=== PATIENT | female | born 1940 | race Caucasian/White ===

== ENCOUNTER → 2016-08-28 | Outpatient (CLI) | payer OTHER, BC ==
[~2016-08-28] MED LIST: B-COTAB18 PO; BNC/20125 PO; CALC600T37 PO; CHOL1CAP57 PO; CZR50 PO; DILT180C48 PO; DXM/4 PO; HYDR-5688 PO; HYDR25TA5 PO; HYZ/50125 PO; LEVO-14 PO; LEVO100T7 PO; LEVO112T4 PO; MRP5 PO; MULT-845 PO; NLV/20 PO; ONDA-63 PO; POTA-65 PO; PROC1TAB5 PO; PRVC/20 PO; THY/30 PO; THY/60 PO
--- NOTE | 2016-08-28 12:52 | DIAGNOSTIC IMAGING REPORT ---
RIGHT FINGER(S) MIN 2 VIEWS ROUTINE CLINICAL HISTORY: RIGHT INDEX FINGER Right trauma. Pain. COMPARISON: None. DISCUSSION: Transverse hairline fracture base proximal phalanx index finger. Considerable degenerative change of the interphalangeal joints. Significant soft tissue edema IMPRESSION: 1. Transverse nondisplaced hairline fracture base proximal phalanx right second finger.. 2. Degenerative change of all remaining joints. 3. Soft tissue edematous change Electronically signed by: Sixto Fonseca M.D. 08/28/2016 12:50 PM
--- NOTE | 2016-08-28 12:54 | DIAGNOSTIC IMAGING REPORT ---
RIGHT HAND MIN 3 VIEWS ROUTINE CLINICAL HISTORY: RIGHT HAND Right trauma. Pain. COMPARISON: None. DISCUSSION: Transverse nondisplaced cortical fracture base proximal phalanx right second finger. Soft tissue edema. Considerable degenerative change of all remaining visualized osseous structures. The 10th IMPRESSION: 1. Transverse nondisplaced fracture proximal phalanx second finger. Soft tissue edema. 2. Generalized degenerative change. Electronically signed by: Sixto Fonseca M.D. 08/28/2016 12:53 PM
== END | disposition home or self-care (01) ==
LOC: C.RAD 12:12
PROVIDERS: ATTEND Emergency Medicine
DX: S62.640A Nondisplaced fracture of proximal phalanx of right index finger, initial encounter for closed fracture (principal); X58.XXXA Exposure to other specified factors, initial encounter

== ENCOUNTER → 2016-09-04 | Outpatient (CLI) | payer OTHER, BC ==
--- NOTE | 2016-09-04 13:57 | DIAGNOSTIC IMAGING REPORT ---
RIGHT INDEX FINGER 3 VIEWS CLINICAL HISTORY: Pain. Fracture. COMPARISON: 08/28/2016 DISCUSSION: There is a nondisplaced fracture through the proximal aspect of the proximal phalanx. Alignment remains unchanged. There is narrowing of the second metacarpal phalangeal joint with particular calcifications. There are erosive osteoarthritic changes involving the distal interphalangeal joint. Degenerative changes are also visualized within the distal interphalangeal joint of the third finger. IMPRESSION: 1. No change in nondisplaced fracture involving the proximal phalanx of index finger 2. Moderate arthritic changes Electronically signed by: Roosevelt Greene M.D. 09/04/2016 1:55 PM Dictated Date/Time: 09/04/2016 1:39 PM
== END | disposition home or self-care (01) ==
LOC: C.RDSM 09:48
PROVIDERS: ATTEND Internal Medicine
DX: S62.609A Fracture of unspecified phalanx of unspecified finger, initial encounter for closed fracture (principal); X58.XXXA Exposure to other specified factors, initial encounter

== ENCOUNTER → 2016-09-19 | Outpatient (CLI) | payer OTHER, BC ==
--- NOTE | 2016-09-19 10:41 | DIAGNOSTIC IMAGING REPORT ---
RIGHT INDEX FINGER 3 VIEWS CLINICAL HISTORY: Right index finger fracture COMPARISON: 09/04/2016 DISCUSSION: There are advanced osteoarthritic changes the level the first carpometacarpal joint. There are erosive osteoarthritic changes the level the distal interphalangeal joint index finger. There is a nondisplaced fracture through the proximal aspect of the proximal phalanx. This remains unchanged in alignment. No periostitis or callus formation is yet evident. IMPRESSION: No change in alignment of the nondisplaced fracture involving the proximal phalanx of the index finger. Electronically signed by: Roosevelt Greene M.D. 09/19/2016 10:39 AM Dictated Date/Time: 09/19/2016 10:38 AM
== END | disposition home or self-care (01) ==
LOC: C.RDSM 09:33
PROVIDERS: ATTEND Internal Medicine
DX: S62.609A Fracture of unspecified phalanx of unspecified finger, initial encounter for closed fracture (principal); X58.XXXA Exposure to other specified factors, initial encounter

== ENCOUNTER → 2016-10-17 | Outpatient (CLI) | payer OTHER, BC ==
--- NOTE | 2016-10-17 13:07 | DIAGNOSTIC IMAGING REPORT ---
LEFT WRIST MIN 3 VIEWS ROUTINE CLINICAL HISTORY: Left wrist pain and swelling. COMPARISON: None FINDINGS: There is widening of the scapholunate interval. Chondrocalcinosis is noted. There is narrowing of the radiocarpal joint. There is severe arthritis of the left first carpometacarpal joint as well as moderate arthritis of the left triscaphe joint. There is no fracture or suspicious lesion. No erosion is identified. IMPRESSION: 1. No acute fracture or dislocation of the left wrist. 2. Extensive chondrocalcinosis within the TFCC. 3. Widening of the scapholunate interval which is likely chronic. The findings could reflect an early scapholunate collapse. 4. Severe arthritis of the left first carpometacarpal joint and moderate arthritis of the triscaphe joint. Electronically signed by: Matti Springer M.D. 10/17/2016 1:06 PM Dictated Date/Time: 10/17/2016 1:02 PM
== END | disposition home or self-care (01) ==
LOC: C.RDSM 10:33
PROVIDERS: ATTEND Internal Medicine
DX: M25.532 Pain in left wrist (principal)

== ENCOUNTER → 2016-10-19 | Outpatient (CLI) | payer OTHER, BC ==
[2016-10-19 12:13] LABS: BASO % 0.3 %; BASO ABS # 0.02 K/uL (0-0.2); COMPLETE YES; EOS % 2.6 %; HEMATOCRIT 37.4 % (37-47); IG% 0.2 %; LYMPH % 13.4 %; LYMPH ABS # 0.82 K/uL (1.2-3.4); MEAN CELL VOLUME 87.6 fL (80-100); MEAN CORPUSCULAR HEMOGLOBIN 30.7 pg (25-34); MEAN PLATELET VOLUME 9.7 fL (7.4-10.4); NEUT % 75.5 %; PLATELET COUNT 215 K/uL (130-400); RED BLOOD COUNT 4.27 M/uL (4.2-5.4); WHITE BLOOD COUNT 6.11 K/uL (4.8-10.8)
[2016-10-19 12:22] LABS: C-REACTIVE PROTEIN 2.97 mg/dl (0-0.29)
== END | disposition home or self-care (01) ==
LOC: C.LAB 11:15
PROVIDERS: ATTEND Family Medicine
DX: M25.532 Pain in left wrist (principal)

== ENCOUNTER → 2016-10-23 | Outpatient (CLI) | payer OTHER, BC ==
--- NOTE | 2016-10-23 10:28 | DIAGNOSTIC IMAGING REPORT ---
ULTRASOUND KIDNEYS AND BLADDER CLINICAL HISTORY: Chronic kidney disease. COMPARISON STUDY: No priors. TECHNIQUE: Real-time, grayscale, and color flow sonography of the kidneys and bladder is performed. Images are reviewed in the transverse and longitudinal planes. FINDINGS: Kidneys: The kidneys demonstrate mild cortical atrophy and are normal in echotexture. The right kidney measures 9.8 x 6.1 x 5.2 cm and the left kidney measures 11.2 x 5.3 x 3.9 cm. There is no hydronephrosis. No shadowing renal calculi are identified. There is no sonographic evidence of contour deforming renal mass lesion. No perinephric fluid is identified. Bladder: The bladder is normal in appearance. Bilateral ureteral jets were seen. IMPRESSION: 1. The kidneys demonstrate mild cortical atrophy and are without hydronephrosis. 2. The bladder is normal as visualized. Electronically signed by: Aidan Clarke M.D. 10/23/2016 10:27 AM Dictated Date/Time: 10/23/2016 10:26 AM
== END | disposition home or self-care (01) ==
LOC: C.ULTR 09:29
PROVIDERS: ATTEND Family Medicine
DX: N18.3 Chronic kidney disease, stage 3 (moderate) (principal)

== ENCOUNTER → 2016-10-30 | Outpatient (CLI) | payer OTHER, BC ==
--- NOTE | 2016-10-30 09:40 | DIAGNOSTIC IMAGING REPORT ---
RIGHT SECOND FINGER 3 VIEWS HISTORY: Right second finger fracture. COMPARISON: Right second finger 09/19/2016. FINDINGS: Nondisplaced fracture within the proximal phalanx of the right second finger demonstrates interval healing. This is most completely healed. 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 Mild soft tissue swelling within the index finger. No radiopaque foreign bodies. IMPRESSION: Interval healing of the nondisplaced fracture within the proximal phalanx of the right index finger. Electronically signed by: Cortez Cooper M.D. 10/30/2016 9:39 AM Dictated Date/Time: 10/30/2016 9:37 AM
== END | disposition home or self-care (01) ==
LOC: C.RDSM 09:30
PROVIDERS: ATTEND Internal Medicine
DX: S62.640D Nondisplaced fracture of proximal phalanx of right index finger, subsequent encounter for fracture with routine healing (principal); X58.XXXD Exposure to other specified factors, subsequent encounter

== ENCOUNTER → 2016-11-05 | Outpatient (CLI) | payer OTHER, BC ==
--- NOTE | 2016-11-05 20:00 | DIAGNOSTIC IMAGING REPORT ---
CHEST 2 VIEWS ROUTINE CLINICAL HISTORY: Shortness of breath. Asthma exacerbation. COMPARISON STUDY: Chest radiograph and chest CT July 20, 2014. FINDINGS: Lung volumes are normal. There is no pneumothorax or pleural effusion. There is no consolidation to suggest pneumonia. There is no evidence of pulmonary edema. Left lower neck surgical clips are noted. Cardiomediastinal silhouette is stable. There is no evidence of pulmonary edema. IMPRESSION: No acute cardiopulmonary findings. Electronically signed by: Matti Springer M.D. 11/05/2016 7:58 PM Dictated Date/Time: 11/05/2016 7:57 PM
== END | disposition home or self-care (01) ==
LOC: C.RAD 17:51
PROVIDERS: ATTEND Family Medicine
DX: J45.901 Unspecified asthma with (acute) exacerbation (principal)

== ENCOUNTER → 2016-11-23 | Outpatient (CLI) | payer OTHER, BC ==
[~2016-11-23] VITALS: Ht 157.5 cm; Wt 80.6 kg
[2016-11-23 14:56] VITALS: BP 135/83; PULSE 83; Ht 157.5 cm; Wt 80.6 kg
== END | disposition home or self-care (01) ==
LOC: C.NEUR 13:19
PROVIDERS: ATTEND Physician Assistant
DX: G47.33 Obstructive sleep apnea (adult) (pediatric) (principal)

== ENCOUNTER → 2016-12-25 | Outpatient (CLI) | payer OTHER, BC | END | disposition home or self-care (01) | LOC: C.MAMM 09:38 | PROVIDERS: ATTEND Family Medicine | DX: M81.0 Age-related osteoporosis without current pathological fracture (principal) ==

== ENCOUNTER → 2017-02-04 | Outpatient (CLI) | payer OTHER, BC ==
--- NOTE | 2017-02-06 08:21 | MAMMOGRAPHY REPORT ---
THIS REPORT HAS BEEN AMENDED. BILATERAL DIGITAL SCREENING MAMMOGRAM TOMOSYNTHESIS WITH CAD: 02/04/2017 CLINICAL HISTORY: Asymptomatic. Personal history of breast cancer. TECHNIQUE: Breast tomosynthesis in addition to standard 2D mammography was performed. Current study was also evaluated with a Computer Aided Detection (CAD) system. COMPARISON: No prior exams were available for comparison. BREAST COMPOSITION: There are scattered areas of fibroglandular density in both breasts. FINDINGS: A linear scar marker overlies the upper outer quadrant of the right breast. There is expec cristina underlying architectural distortion and 3 surgical clips at the site of prior lumpectomy. There are mild vascular calcifications and a few benign rim calcifications in the breasts. No suspicious m ass, architectural distortion or cluster of microcalcifications is seen. IMPRESSION: ACR BI-RADS CATEGORY 1: NEGATIVE There is no mammographic evidence of malignancy. Prior outside mammograms are currently being reques cristina and if obtained they will be reviewed, compared to the current exam to assess for any more subtle changes, and an addendum will be made to this report. Otherwise, a 1 year screening mammogram is re commended. The patient will receive written notification of the results. Approximately 10% of breast cancers are not detected with mammography. A negative mammographic report should not delay biopsy if a clinically suggestive mass is present. Perri Araujo M.D. ay/:02/05/2017 16:07:49 [employer]ice: Yaneli HANDLEY(Carol)(Wili), [facility] letter sent: Normal 1/ BI-RADS Code: ACR BI-RADS Category 1: Negative AMENDMENT: 02/06/2017 Perri Araujo M.D. Prior mammograms from [place] dated 02/22/2016, 02/09/2015 and 02/11/2014 became avai lable for review. Specimen radiographs from 02/18/2014 are also available. There has been no significant interval change comparing to the prior outside exams. There are stable postsurgical changes including expected architectural distortion and surgical clips in the lateral r ight breast. Stable vascular calcifications bilaterally. No new suspicious mass, architectural dist ortion or new suspicious microcalcifications are identified. Recommend follow-up in 1 year for next annual screening exam. Amended BI-RADS: ACR BI-RADS Category 2: Benign letter sent: Normal 1/2
== END | disposition home or self-care (01) ==
LOC: C.MAMM 08:57
PROVIDERS: ATTEND Internal Medicine Hematology & Oncology
DX: Z12.31 Encounter for screening mammogram for malignant neoplasm of breast (principal); R79.89 Other specified abnormal findings of blood chemistry

== ENCOUNTER → 2017-02-04 | Outpatient (CLI) | payer OTHER, BC ==
[~2017-02-04] MED LIST changes: +OPTIRAY 320 IV PRN
--- NOTE | 2017-02-04 18:55 | DIAGNOSTIC IMAGING REPORT ---
CT ANGIOGRAPHY OF THE CHEST, PULMONARY EMBOLUS PROTOCOL CLINICAL HISTORY: Positive d-dimer. Leg swelling. Cough. COMPARISON STUDY: Chest CT July 20, 2014 and chest radiograph November 05, 2016. TECHNIQUE: Following IV administration of 85 mL of Optiray-320, helical axial images of the chest were obtained utilizing the pulmonary embolus protocol. Maximal intensity projections and sagittal and coronal reformats were viewed on an independent 3D workstation. IV contrast was administered without complication. CT DOSE: 318.02 mGy.cm FINDINGS: No pulmonary emboli are identified. There is no evidence of thoracic aortic dissection. No enlarged axillary, mediastinal or hilar lymph nodes are present. The heart is mildly enlarged. There is no pericardial effusion. There is no consolidation to suggest pneumonia. Lingular opacity suggests atelectasis. Mild subpleural reticulation within the right middle lobe and right lower lobe is likely related to prior radiation therapy. There are post surgical findings within the right breast. There are no suspicious osseous lesions. Upper abdomen is unremarkable. IMPRESSION: 1. No pulmonary emboli identified. 2. No acute intrathoracic findings. Electronically signed by: Matti Springer M.D. 02/04/2017 6:53 PM Dictated Date/Time: 02/04/2017 6:45 PM
== END | disposition home or self-care (01) ==
LOC: C.CTS 18:20
PROVIDERS: ATTEND Family Medicine
DX: R79.89 Other specified abnormal findings of blood chemistry (principal)

== ENCOUNTER → 2017-02-12 | Outpatient (CLI) | payer OTHER, BC ==
[~2017-02-12] MED LIST changes: -OPTIRAY 320 IV PRN
[2017-02-12 12:47] LABS: BLOOD UREA NITROGEN 14 mg/dl (7-18); BUN/CREATININE RATIO 14.8 (10-20); CALCIUM 8.7 mg/dl (8.5-10.1); CARBON DIOXIDE 29 mmol/L (21-32); CHLORIDE 104 mmol/L (98-107); CREATININE 0.97 mg/dl (0.60-1.20); GLUCOSE 91 mg/dl (70-99); POTASSIUM 3.1 mmol/L (3.5-5.1); SODIUM 142 mmol/L (136-145)
[2017-02-12 13:01] LABS: MAGNESIUM 1.8 mg/dl (1.8-2.4)
[2017-02-14 13:41] LABS: THYROGLOBULIN <0.1 NG/ML (2.8-40.9)
== END | disposition home or self-care (01) ==
LOC: C.LABBFT 11:01
PROVIDERS: ATTEND Physician Assistant Medical
DX: I10 Essential (primary) hypertension (principal); M79.89 Other specified soft tissue disorders; I49.3 Ventricular premature depolarization; E83.51 Hypocalcemia; E83.52 Hypercalcemia; E89.0 Postprocedural hypothyroidism; C73 Malignant neoplasm of thyroid gland; R53.83 Other fatigue

== ENCOUNTER → 2017-02-20 | Outpatient (CLI) | payer OTHER, BC ==
[2017-02-20 18:27] LABS: BLOOD UREA NITROGEN 14 mg/dl (7-18); BUN/CREATININE RATIO 12.8 (10-20); CALCIUM 8.9 mg/dl (8.5-10.1); CARBON DIOXIDE 29 mmol/L (21-32); CHLORIDE 102 mmol/L (98-107); GLUCOSE 139 mg/dl (70-99); POTASSIUM 3.1 mmol/L (3.5-5.1); SODIUM 138 mmol/L (136-145)
== END | disposition home or self-care (01) ==
LOC: C.LABBFT 10:38
PROVIDERS: ATTEND Physician Assistant Medical
DX: E87.6 Hypokalemia (principal)

== ENCOUNTER 2017-03-23 14:47 | Emergency (ER) | payer OTHER, BC ==
[~2017-03-23] VITALS: Ht 157.5 cm; Wt 78.9 kg
[~2017-03-23 14:47] MED LIST changes: -B-COTAB18 PO; -CALC600T37 PO; -CZR50 PO; -DILT180C48 PO; -HYDR-5688 PO; -HYDR25TA5 PO; -HYZ/50125 PO; -LEVO-14 PO; -MRP5 PO; -MULT-845 PO; -NLV/20 PO; -POTA-65 PO; -PRVC/20 PO; -THY/30 PO; -THY/60 PO
[2017-03-23 14:49] VITALS: Ht 157.5 cm; Wt 78.9 kg
[2017-03-23] MEDS ORDERED: CZR50 PO (15:22)
[2017-03-23] MEDS ORDERED: THY/60 PO (15:22)
[2017-03-23] MEDS ORDERED: POTA-65 PO (15:22)
[2017-03-23] MEDS ORDERED: NLV/20 PO (15:22)
[2017-03-23] MEDS ORDERED: CALC600T37 PO (15:22)
[2017-03-23] MEDS ORDERED: HYDR25TA5 PO (15:22)
[2017-03-23] MEDS ORDERED: DILT180C48 PO (15:22)
[2017-03-23] MEDS ORDERED: B-COTAB18 PO (15:22)
[2017-03-23 15:23] LABS: BASO % 0.1 %; BASO ABS # 0.01 K/uL (0-0.2); COMPLETE YES; EOS % 0.3 %; HEMATOCRIT 40.3 % (37-47); IG% 0.3 %; LYMPH % 8.3 %; MEAN CELL VOLUME 88.2 fL (80-100); MEAN CORPUSCULAR HEMOGLOBIN 30.2 pg (25-34); MEAN CORPUSCULAR HGB CONC 34.2 g/dl (32-36); MEAN PLATELET VOLUME 9.6 fL (7.4-10.4); MONO % 5.7 %; NEUT % 85.3 %; PLATELET COUNT 196 K/uL (130-400); RED BLOOD COUNT 4.57 M/uL (4.2-5.4); WHITE BLOOD COUNT 10.79 K/uL (4.8-10.8)
[2017-03-23 15:45] LABS: BUN/CREATININE RATIO 11.8 (10-20); POTASSIUM 3.2 mmol/L (3.5-5.1)
--- NOTE | 2017-03-23 17:09 | DIAGNOSTIC IMAGING REPORT ---
ABDOMINAL ULTRASOUND, RIGHT UPPER QUADRANT HISTORY: Right upper quadrant pain. COMPARISON: Renal ultrasound October 23, 2016. FINDINGS: Exam is mildly compromised by suboptimal penetration. The liver is sonographically normal. There is no biliary ductal dilatation. The common bile duct measures 2 mm in caliber. No gallstones are identified. Gallbladder is slightly contracted. There is no gallbladder wall thickening. The pancreas is within normal limits by sonography. There is no right hydronephrosis. IMPRESSION: No significant abnormality identified within the right upper quadrant. Electronically signed by: Matti Springer M.D. 03/23/2017 5:08 PM Dictated Date/Time: 03/23/2017 5:06 PM
--- NOTE | 2017-03-23 17:27 | EMERGENCY ROOM VISIT NOTE ---
ED Visit Note First contact with patient: 14:53 The patient was seen and examined with Morenita Fonseca PA-C. I agree with the history, physical and findings. Please see the note for disposition and details.
[2017-03-23] MEDS ORDERED: OPTIRAY 320 IV PRN (18:15)
--- NOTE | 2017-03-23 18:19 | DIAGNOSTIC IMAGING REPORT ---
CT OF THE ABDOMEN AND PELVIS WITH CONTRAST CLINICAL HISTORY: Right-sided abdominal pain. COMPARISON STUDY: Right upper quadrant ultrasound performed earlier today. TECHNIQUE: Following IV administration of 116 mL of Optiray-320, axial images of the abdomen and pelvis were obtained from the lung bases to the proximal femurs. Images were reviewed in the axial, sagittal, and coronal planes. IV contrast was administered without complication. A dose lowering technique was utilized adhering to the principles of ALARA. CT DOSE: 360.26 mGy.cm FINDINGS: A 5 mm calcified gallstone within the gallbladder was occult by sonography. There is no CT evidence of acute cholecystitis. The liver, spleen, adrenal glands, kidneys and pancreas are unremarkable with the exception of multiple subcentimeter hypodense renal lesions which are too small to characterize. These are probably benign. There is no hydronephrosis. There is no peripancreatic or pericholecystic infiltration. There is no biliary or pancreatic ductal dilatation. There is no evidence for a bowel obstruction. There is extensive sigmoid diverticulosis without evidence for acute diverticulitis. The appendix is not visualized. There is no ascites or lymphadenopathy. No suspicious skeletal lesions are identified. Incidental noted is made of grade I anterolisthesis of L5 on S1 due to bilateral L5 pars defects. IMPRESSION: 1. No acute process within the abdomen or pelvis. 2. 5 mm gallstone within the gallbladder which was occult by sonography. No CT evidence of acute cholecystitis. Electronically signed by: Matti Springer M.D. 03/23/2017 6:17 PM Dictated Date/Time: 03/23/2017 6:10 PM
[2017-03-23] MEDS ORDERED: MULT-845 PO (18:22)
[2017-03-23] MEDS ORDERED: LEVO-14 PO (18:22)
[2017-03-23] MEDS ORDERED: CHOL1CAP57 PO (18:22)
[2017-03-23] MEDS ORDERED: PRVC/20 PO (18:22)
[2017-03-23] MEDS ORDERED: MRP5 PO (18:22)
[2017-03-23] MEDS ORDERED: HYDR-5688 PO (18:44)
[2017-03-23] MEDS ORDERED: NORCO 5/325MG HOME PACK PO ONE (18:45)
--- NOTE | 2017-03-23 18:51 | EMERGENCY ROOM VISIT NOTE ---
History First contact with patient: 14:53 Chief Complaint: ABDOMINAL PAIN Stated Complaint: ABD PAIN History of Present Illness The patient is a 76 year old female who presents to the Emergency Room with complaints of right upper quadrant pain. The patient states that the pain started over 48 hours ago. She states it has been getting progressively worse. The patient denies any nausea, vomiting or change in bowel habits. The patient denies any fever. The patient denies any chest pain or shortness of breath. The patient states that she saw Dr. Chung at [facility] today and he wanted her to get an outpatient ultrasound. The vtc technician would not do the ultrasound that she was nonfasting and therefore the doctor instructed her to come to the emergency room. Review of Systems 10 system review was performed and was negative unless stated otherwise history of present illness. Past Medical/Surgical History Medical Problems: (1) Asthma (2) Breast cancer (3) Hypertension (4) Thyroid cancer Surgical Problems: (1) H/O lumpectomy (2) H/O: hysterectomy (3) History of knee replacement Family History Cancer Diabetes mellitus Heart disease Hypertension Social History Smoking Status: Never Smoker Alcohol Use: occasionally Marital Status: Housing Status: lives with significant other Occupation Status: unemployed Current/Historical Medications Scheduled B-Complex Vitamins (Vitamin B Complex), 1 TABS PO DAILY Calcium (Calcium), 600 MG PO DAILY Cholecalciferol (Vitamin D3), 2,000 INTER.UNIT PO DAILY Diltiazem Hcl (Dilt-Xr), 180 MG PO DAILY Hydrochlorothiazide (Hydrochlorothiazide), 25 MG PO DAILY Levocetirizine Dihydrochloride (Levocetirizine Dihydrochl), 5 MG PO DAILY Losartan Potassium (Losartan Potassium), 50 MG PO DAILY Multiple Vitamins W/ Minerals (Centrum Silver Adult 50+), 1 TAB PO DAILY Potassium Chloride (Potassium Chloride ER), 20 MEQ PO BID Pramipexole Dihydrochloride (Pramipexole Dihydrochlori), 1 MG PO HS Pravastatin Sod (Pravastatin Sodium), 20 MG PO HS Tamoxifen Citrate (Tamoxifen Citrate), 20 MG PO DAILY Thyroid (Thyroid Extract), 60 MG PO DAILY Scheduled PRN Hydrocodone/Acetaminophen 5MG/325MG (Mercer 5MG/325MG), 1-2 TABLET PO Q6 PRN for Pain Physical Exam Vital Signs Date Time Temp Pulse Resp B/P (MAP) Pulse Ox O2 Delivery O2 Flow Rate FiO2 03/23/17 16:09 88 15 148/78 97 Room Air 03/23/17 15:18 90 15 155/80 97 Room Air 03/23/17 14:49 37.4 97 15 163/90 97 Room Air Physical Exam GENERAL: 76-year-old white female appears in no acute distress. MENTAL Status: Alert and oriented 3. MOUTH: Mucosa is moist NECK: Supple, no lymphadenopathy noted. No carotid bruits noted. LUNGS: Clear auscultation without wheezes rales or rhonchi. CARDIAC: Regular rate and rhythm without murmur. Pulses is full and equal throughout. BACK: No CVA tenderness noted. ABDOMEN: Positive bowel sounds all 4 quadrants. Soft, tenderness palpation in the right upper quadrant otherwise nontender to palpation without organomegaly or masses. Positive Barnett sign EXTREMITIES: No cyanosis or edema noted. Medical Decision & Procedures ER Provider Diagnostic Interpretation: CT OF THE ABDOMEN AND PELVIS WITH CONTRAST CLINICAL HISTORY: Right-sided abdominal pain. COMPARISON STUDY: Right upper quadrant ultrasound performed earlier today. TECHNIQUE: Following IV administration of 116 mL of Optiray-320, axial images of the abdomen and pelvis were obtained from the lung bases to the proximal femurs. Images were reviewed in the axial, sagittal, and coronal planes. IV contrast was administered without complication. A dose lowering technique was utilized adhering to the principles of ALARA. CT DOSE: 360.26 mGy.cm FINDINGS: A 5 mm calcified gallstone within the gallbladder was occult by sonography. There is no CT evidence of acute cholecystitis. The liver, spleen, adrenal glands, kidneys and pancreas are unremarkable with the exception of multiple subcentimeter hypodense renal lesions which are too small to characterize. These are probably benign. There is no hydronephrosis. There is no peripancreatic or pericholecystic infiltration. There is no biliary or pancreatic ductal dilatation. There is no evidence for a bowel obstruction. There is extensive sigmoid diverticulosis without evidence for acute diverticulitis. The appendix is not visualized. There is no ascites or lymphadenopathy. No suspicious skeletal lesions are identified. Incidental noted is made of grade I anterolisthesis of L5 on S1 due to bilateral L5 pars defects. IMPRESSION: 1. No acute process within the abdomen or pelvis. 2. 5 mm gallstone within the gallbladder which was occult by sonography. No CT evidence of acute cholecystitis. Electronically signed by: Matti Springer M.D. 03/23/2017 6:17 PM Dictated Date/Time: 03/23/2017 6:10 PM ABDOMINAL ULTRASOUND, RIGHT UPPER QUADRANT HISTORY: Right upper quadrant pain. COMPARISON: Renal ultrasound October 23, 2016. FINDINGS: Exam is mildly compromised by suboptimal penetration. The liver is sonographically normal. There is no biliary ductal dilatation. The common bile duct measures 2 mm in caliber. No gallstones are identified. Gallbladder is slightly contracted. There is no gallbladder wall thickening. The pancreas is within normal limits by sonography. There is no right hydronephrosis. IMPRESSION: No significant abnormality identified within the right upper quadrant. Electronically signed by: Matti Springer M.D. 03/23/2017 5:08 PM Dictated Date/Time: 03/23/2017 5:06 PM Laboratory Results 03/23/17 15:13 Red Blood Count 4.57, Mean Corpuscular Volume 88.2, Mean Corpuscular Hemoglobin 30.2, Mean Corpuscular Hemoglobin Concent 34.2, Mean Platelet Volume 9.6, Neutrophils (%) (Auto) 85.3, Lymphocytes (%) (Auto) 8.3, Monocytes (%) (Auto) 5.7, Eosinophils (%) (Auto) 0.3, Basophils (%) (Auto) 0.1, Neutrophils # (Auto) 9.21, Lymphocytes # (Auto) 0.90, Monocytes # (Auto) 0.61, Eosinophils # (Auto) 0.03, Basophils # (Auto) 0.01 03/23/17 15:13 Test 03/23/17 15:13 White Blood Count 10.79 K/uL (4.8-10.8) Red Blood Count 4.57 M/uL (4.2-5.4) Hemoglobin 13.8 g/dL (12.0-16.0) Hematocrit 40.3 % (37-47) Mean Corpuscular Volume 88.2 fL (80-100) Mean Corpuscular Hemoglobin 30.2 pg (25-34) Mean Corpuscular Hemoglobin Concent 34.2 g/dl (32-36) Platelet Count 196 K/uL (130-400) Mean Platelet Volume 9.6 fL (7.4-10.4) Neutrophils (%) (Auto) 85.3 % Lymphocytes (%) (Auto) 8.3 % Monocytes (%) (Auto) 5.7 % Eosinophils (%) (Auto) 0.3 % Basophils (%) (Auto) 0.1 % Neutrophils # (Auto) 9.21 K/uL (1.4-6.5) Lymphocytes # (Auto) 0.90 K/uL (1.2-3.4) Monocytes # (Auto) 0.61 K/uL (0.11-0.59) Eosinophils # (Auto) 0.03 K/uL (0-0.5) Basophils # (Auto) 0.01 K/uL (0-0.2) RDW Standard Deviation 43.1 fL (36.4-46.3) RDW Coefficient of Variation 13.3 % (11.5-14.5) Immature Granulocyte % (Auto) 0.3 % Immature Granulocyte # (Auto) 0.03 K/uL (0.00-0.02) Anion Gap 5.0 mmol/L (3-11) Est Creatinine Clear Calc Drug Dose 46.6 ml/min Estimated GFR () 63.4 Estimated GFR (Non- 54.7 BUN/Creatinine Ratio 11.8 (10-20) Calcium Level 9.0 mg/dl (8.5-10.1) Total Bilirubin 0.3 mg/dl (0.2-1) Direct Bilirubin 0.1 mg/dl (0-0.2) Aspartate Amino Transf (AST/SGOT) 27 U/L (15-37) Alanine Aminotransferase (ALT/SGPT) 29 U/L (12-78) Alkaline Phosphatase 72 U/L (45-117) Total Protein 7.1 gm/dl (6.4-8.2) Albumin 3.4 gm/dl (3.4-5.0) Lipase 217 U/L (73-393) ED Course The patient was evaluated. The patient's EMR medication list were reviewed. The patient was offered pain medication but declined. IV access was obtained. CBC and differential, renal profile, LFTs and lipase levels were ordered. Labs are reviewed and were unremarkable. White count was normal. LFTs were normal. An ultrasound of the colon was ordered and interpreted by the radiologist as above with evidence of a contracted gallbladder but no evidence of acute cholecystitis or gallstones.. The patient was independently evaluated by active who agreed with treatment plan. A CT of the abdomen and pelvis with IV contrast was ordered and interpreted by the radiologist as above with evidence of a 5 mm gallstone which was not seen on ultrasound. She also has sigmoid diverticulosis without any evidence of diverticulitis. The patient was informed of the CT findings. The patient was given a Mercer home pack. I contacted Dr. Bryant about the patient who will be happy to see the patient in follow-up. She is to call his office on Saturday. The patient was informed treatment plan and was in agreement. The patient was discharged home in stable condition. Medical Decision Differential diagnosis include pleuritic chest pain, acute cholecystitis, cholelithiasis, gastritis, small bowel obstruction Medication Reconcilliation Current Medication List: was personally reviewed by me Blood Pressure Screening Patient's blood pressure: Elevated blood pressure Blood pressure disposition: Elevated BP felt to be situational Impression Primary Impression: Cholelithiasis Departure Information Dispostion Home / Self-Care Condition GOOD Prescriptions Hydrocodone/Acetaminophen 5MG/325MG (Mercer 5MG/325MG) Tab 1-2 TABLET PO Q6 Y for Pain, #14 TAB For Initial Treatment Prov: Melina Fonseca PA-C 03/23/17 Referrals Kell Jorge M.D. (PCP) Forms HOME CARE DOCUMENTATION FORM, IMPORTANT VISIT INFORMATION Patient Instructions Gallstones, [facility] Additional Instructions Follow fat diet. Take Mercer as needed for pain. Do not drive while taking the Mercer. Call Dr. Bryant's office on Saturday. Please call this number. [phone] to make an appointment. If you experience any severe abdominal pain, high fevers, uncontrolled nausea vomiting return to ER immediately. Problem Qualifiers Primary Impression: Cholelithiasis Cholecystitis presence: without cholecystitis Biliary obstruction: without biliary obstruction
[2017-03-23 19:19] VITALS: BP 147/77; PULSE 81; TEMP 37.4; O2SAT 97
[2017-03-29] MEDS ORDERED: THY/30 PO (15:42)
[2017-03-29] MEDS ORDERED: HYDR-5688 PO (15:46)
[2017-03-29] MEDS ORDERED: HYZ/50125 PO (15:47)
== END 2017-03-23 19:20 | disposition home or self-care (01) ==
LOC: C.EDB 14:48 → C.EDC 19:20
DX: K80.20 Calculus of gallbladder without cholecystitis without obstruction (principal); J45.909 Unspecified asthma, uncomplicated; Z85.3 Personal history of malignant neoplasm of breast; I10 Essential (primary) hypertension; Z85.850 Personal history of malignant neoplasm of thyroid; Z80.9 Family history of malignant neoplasm, unspecified; Z83.3 Family history of diabetes mellitus; Z82.49 Family history of ischemic heart disease and other diseases of the circulatory system; Z79.899 Other long term (current) drug therapy

== ENCOUNTER 2017-04-01 10:36 | Day surgery (SDC) | payer OTHER, BC ==
[2017-03-29 15:51] VITALS: Ht 157.5 cm; Wt 77.3 kg
[~2017-04-01] VITALS: Ht 157.5 cm; Wt 77.3 kg
[~2017-04-01 10:36] MED LIST changes: +B-COTAB18 PO; -BNC/20125 PO; +CALC600T37 PO; +CEFAZOLIN 2000 MG/60 ML D5W IV SCH; -DXM/4 PO; +HYDR-5688 PO; +HYDR25TA5 PO; +HYZ/50125 PO; +LACTATED RINGER'S 1000ML 1,000 ML IV SCH; +LEVO-14 PO; -LEVO100T7 PO; -LEVO112T4 PO; +MRP5 PO; +MULT-845 PO; +NLV/20 PO; -ONDA-63 PO; -PROC1TAB5 PO; +PRVC/20 PO; +THY/30 PO
[2017-04-01 11:18] VITALS: BP 182/89; PULSE 80; TEMP 36.6; O2SAT 96
[2017-04-01] MEDS ORDERED: FENTANYL CITRATE INJ 50 MCG/1 ML 2 ML VIAL ONE ×3 (11:46→14:15)
[2017-04-01] MEDS ORDERED: BUPIVACAINE 0.5 % 5 MG/1 ML MPF 30ML VIAL ONE (12:10)
[2017-04-01] MEDS ORDERED: LIDOCAINE HCL 1% 20 ML VIAL ONE (12:10)
[2017-04-01] MEDS ORDERED: CONRAY 60% 50 ML VIAL ONE (12:11)
[2017-04-01] MEDS ORDERED: FENTANYL CITRATE INJ 50 MCG/1 ML 2 ML VIAL IV PRN (12:15)
[2017-04-01] MEDS ORDERED: ONDANSETRON INJ 2 MG/ML 2 ML VIAL IV PRN ×2 (12:15→14:15)
[2017-04-01] MEDS ORDERED: ATROPINE SULFATE 0.1 MG/ML 5ML SYR IV PRN (12:15)
[2017-04-01] MEDS ORDERED: EpHEDrine SULFATE INJ 50 MG/ML AMP IV PRN (12:15)
[2017-04-01] MEDS ORDERED: HYDROmorphone INJ 1 MG/ML SYR IV PRN (12:15)
--- NOTE | 2017-04-01 12:35 | History & Physical Bridge Note ---
H&P Re-Evaluation Bridge Note: I have examined the patient, reviewed the History & Physical and in the interval since the performance of the History & Physical I have noted the following changes of clinical significance: No changes noted
[2017-04-01] MEDS ORDERED: LIDOCAINE HCL 2% 2 ML VIAL (20MG/ML) ONE (13:14)
[2017-04-01] MEDS ORDERED: GLYCOPYRROLATE INJ 0.2 MG/ML VIAL ONE (13:14)
[2017-04-01] MEDS ORDERED: ONDANSETRON INJ 2 MG/ML 2 ML VIAL ONE (13:14)
[2017-04-01] MEDS ORDERED: PROPOFOL IV EMULSION 10 MG/ML 20 ML VIAL IV ONE (13:14)
[2017-04-01] MEDS ORDERED: NEOSTIGMINE METHYLSULFATE 5 MG/5 ML SYR ONE (13:14)
[2017-04-01] MEDS ORDERED: ROCURONIUM BROMIDE 10 MG/ML 5 ML VIAL ONE (13:14)
[2017-04-01] MEDS ORDERED: DEXAMETHASONE SOD INJ 4 MG/ML VIAL ONE (13:14)
[2017-04-01] MEDS ORDERED: LABETALOL HCL IV 5 MG/ML 20ML IV ONE (13:45)
[2017-04-01] MEDS ORDERED: MoRPHine SULFATE 2 MG/ML CARP IV PRN ×2 (14:15)
[2017-04-01] MEDS ORDERED: OXYCODONE/ACETAMINOPHEN 5-325 TAB PO PRN (14:15)
[2017-04-01] MEDS ORDERED: MoRPHine SULFATE 4 MG/ML 1 ML CARP\\VIAL IV PRN (14:15)
--- NOTE | 2017-04-01 14:15 | Discharge Instructions ---
Discharge Instructions Date of Service Apr 01, 2017. Admission Reason for Admission: Symptomatic Cholelithiasis Discharge Discharge Diagnosis / Problem: Same Discharge Goals Goal(s): Decrease discomfort, Improve function Activity Recommendations Activity Limitations: as noted below No heavy lifting over 10 pounds until follow-up appointment and then will discuss further restrictions at follow-up You may shower, gently wash incisions with soap and water, the glue will fall off on its own No driving while taking narcotic pain medication or until you are pain free . Instructions / Follow-Up Instructions / Follow-Up Follow-up in 2 weeks, please call office at [phone] if you do not already have an appointment made Current Hospital Diet Patient's current hospital diet: Discharge Diet Recommended Diet: Regular Diet Procedures Procedures Performed: Laparoscopic cholecystectomy Pending Studies Studies pending at discharge: yes List of pending studies: Pathology- gallbladder, will be discussed at follow-up Medical Emergencies . Who to Call and When: Medical Emergencies: If at any time you feel your situation is an emergency, please call 911 immediately. . Non-Emergent Contact Non-Emergency issues call your: Primary Care Provider, Surgeon Call Non-Emergent contact if: you have a fever, temperature is above 101, your pain is not controlled, your pain is worsening, wound has increased drainage, wound has increased redness, wound has increased pain . "Provider Documentation" section prepared by Rakel Tijerina. . VTE Core Measure Inpt VTE Proph given/why not?: SCD's [place] Drug Monitoring Program Search Results: patient reviewed within database, no issues identified
--- NOTE | 2017-04-01 14:16 | [facility] Operative Report ---
Operative Report Operative Date Apr 01, 2017. Pre-Operative Diagnosis Symptomatic cholelithiasis Post-Operative Diagnosis Symptomatic cholelithiasis Procedure(s) Performed Laparoscopic cholecystectomy Surgeon Dr. Maria Eugenia Jorge MD Desktop Publishing Operator Surgeon(s) Rakel Tijerina PA-C Estimated Blood Loss 5ml Findings Gallbladder and liver were normal appearing Fluids 700ml Specimens A. Gallbladder Drains None Anesthesia General Complication(s) None Disposition Recovery Room / PACU Indications Belkys Chan is a 76 year old woman with symptomatic cholelithiasis. Indications, risks, benefits and potential complications discussed at length with the patient and her . All questions answered to apparent satisfaction. Patient elected to proceed with the operation and freely signed the consent form. Description of Procedure Patient was brought to the operating room and identified as Belkys Chan, 40. She was placed on the operating table in supine position. Anesthesia was induced, and the patient was intubated without difficulty. She was prepped and draped in the usual sterile fashion. A 10mm incision was made superior to the umbilicus and carried down through subcutaneous tissue. The fascia was identified and two Aylin clamps were placed for upward traction. The fascia was incised and peritoneum identified. Two hemostats were placed on the peritoneum for elevation, and the peritoneum was entered using Metzenbaum scissors. A Bud port was placed, and insufflation was established. A 5mm port was placed under direct vision sub-xiphoid. Two more 5mm ports were placed in the right upper quadrant. The dome of the gallbladder was grasped and retracted cranially. The neck of the gallbladder was retracted laterally to expose the area of dissection. Omental adhesions were gently taken down. The cystic duct was dissected out using [place] graspers. The cystic artery was also dissected out, until the triangle of safety was clearly identified with the liver between the two structures. The cystic duct and cystic artery were both clipped and cut. The gallbladder was then taken off the liver using electrocautery to ensure hemostasis. Once liberated from the gallbladder fossa , the 10mm endoscope was exchanged for the 5mm endoscope; a 10mm endocatch bag was placed in the abdomen, and the gallbladder placed in the bag. The gallbladder was removed from the abdomen and passed off the operating field to be taken to pathology. The gallbladder fossa was again inspected and found to be hemostatic. The instrument and sponge count was verified to be correct by the nurse in charge. The fascia at the umbilical port was closed using Vicryl suture in a figure of eight fashion. Skin was closed with Monocryl and dermabond applied. Patient was then awakened from anesthesia extubated without difficulty. She was taken to the PACU, having suffered no untoward events. I attest to the content of the Intraoperative Record and any orders documented therein. Any exceptions are noted below.
--- NOTE | 2017-04-01 14:47 | Anesthesiology Progress Note ---
Anesthesia Post Op Note Date & Time Apr 01, 2017 at 14:47 Vital Signs Pain Intensity: 3 Vital Signs Past 12 Hours Date Time Temp Pulse Resp B/P (MAP) Pulse Ox O2 Delivery O2 Flow Rate FiO2 04/01/17 14:45 64 16 123/70 99 Nasal Cannula 2 04/01/17 14:35 36.3 65 16 132/73 98 Nasal Cannula 2 04/01/17 14:25 66 16 154/85 98 Oxymask 3 04/01/17 14:15 70 16 167/74 98 Oxymask 10 04/01/17 14:09 36.6 76 16 161/91 98 Oxymask 10 04/01/17 11:18 36.6 80 18 182/89 (120) 96 Room Air Notes Mental Status: alert / awake / arousable, participated in evaluation Pt Amnestic to Procedure: Yes Nausea / Vomiting: adequately controlled Pain: adequately controlled Airway Patency, RR, SpO2: stable & adequate BP & HR: stable & adequate Hydration State: stable & adequate Anesthetic Complications: no major complications apparent
[2017-04-01 14:50] VITALS: BP 139/68; PULSE 68; TEMP 36.7; O2SAT 93
[2017-04-01 15:30] VITALS: BP 154/71; PULSE 69; O2SAT 94
[2017-04-01] MEDS ORDERED: HYDR-5688 PO (15:33)
[2017-04-01 15:55] VITALS: BP 151/73; PULSE 68; O2SAT 95
== END 2017-04-01 16:05 | disposition home or self-care (01) ==
LOC: C.ACU 10:36
PROVIDERS: ATTEND Student in an Organized Health Care Education/Training Program
DX: K80.10 Calculus of gallbladder with chronic cholecystitis without obstruction (principal); I10 Essential (primary) hypertension; E78.5 Hyperlipidemia, unspecified; E89.0 Postprocedural hypothyroidism; Z79.899 Other long term (current) drug therapy

== ENCOUNTER → 2017-05-06 | Outpatient (CLI) | payer OTHER, BC ==
[~2017-05-06] MED LIST changes: -CEFAZOLIN 2000 MG/60 ML D5W IV SCH; -LACTATED RINGER'S 1000ML 1,000 ML IV SCH
[2017-05-06 13:07] LABS: BLOOD UREA NITROGEN 14 mg/dl (7-18); BUN/CREATININE RATIO 16.2 (10-20); CALCIUM 8.9 mg/dl (8.5-10.1); CARBON DIOXIDE 29 mmol/L (21-32); CHLORIDE 103 mmol/L (98-107); CREATININE 0.85 mg/dl (0.60-1.20); GLUCOSE 80 mg/dl (70-99); MAGNESIUM 1.6 mg/dl (1.8-2.4); POTASSIUM 3.3 mmol/L (3.5-5.1); SODIUM 140 mmol/L (136-145)
== END | disposition home or self-care (01) ==
LOC: C.LABBFT 09:33
PROVIDERS: ATTEND Physician Assistant Medical
DX: E87.6 Hypokalemia (principal); R53.83 Other fatigue

== ENCOUNTER → 2017-05-09 | Outpatient (CLI) | payer OTHER, BC ==
[2017-05-09 15:47] LABS: BLOOD UREA NITROGEN 14 mg/dl (7-18); CALCIUM 9.2 mg/dl (8.5-10.1); CARBON DIOXIDE 29 mmol/L (21-32); CHLORIDE 106 mmol/L (98-107); GLUCOSE 92 mg/dl (70-99); MAGNESIUM 1.7 mg/dl (1.8-2.4); PHOSPHORUS 3.3 mg/dl (2.5-4.9); POTASSIUM 3.4 mmol/L (3.5-5.1); SODIUM 141 mmol/L (136-145)
[2017-05-09 16:26] LABS: URINE APPEARANCE CLEAR (CLEAR); URINE BILIRUBIN NEG (NEG); URINE COLOR YELLOW; URINE NITRITE NEG (NEG); URINE SPECIFIC GRAVITY 1.018 (1.000-1.030); UROBILINOGEN NEG (NEG)
[2017-05-09 16:29] LABS: MANUAL MICROSCOPIC REQUIRED? NO; REVIEW REQ? NO
== END | disposition home or self-care (01) ==
LOC: C.LAB1850 14:09
PROVIDERS: ATTEND Internal Medicine Nephrology
DX: E83.42 Hypomagnesemia (principal)

== ENCOUNTER → 2017-05-20 | Outpatient (CLI) | payer OTHER, BC ==
[2017-05-20 17:40] LABS: BLOOD UREA NITROGEN 14 mg/dl (7-18); BUN/CREATININE RATIO 12.7 (10-20); CALCIUM 9.2 mg/dl (8.5-10.1); CARBON DIOXIDE 27 mmol/L (21-32); CHLORIDE 108 mmol/L (98-107); GLUCOSE 108 mg/dl (70-99); MAGNESIUM 1.9 mg/dl (1.8-2.4); POTASSIUM 3.7 mmol/L (3.5-5.1); SODIUM 143 mmol/L (136-145)
[2017-05-20 17:41] LABS: PHOSPHORUS 3.1 mg/dl (2.5-4.9)
== END | disposition home or self-care (01) ==
LOC: C.LABBFT 15:40
PROVIDERS: ATTEND Physician Assistant Medical
DX: E83.42 Hypomagnesemia (principal); E87.6 Hypokalemia

== ENCOUNTER → 2017-06-04 | Outpatient (CLI) | payer OTHER, BC ==
[2017-06-04 17:55] LABS: BLOOD UREA NITROGEN 14 mg/dl (7-18); BUN/CREATININE RATIO 13.5 (10-20); CALCIUM 8.9 mg/dl (8.5-10.1); CARBON DIOXIDE 28 mmol/L (21-32); CHLORIDE 104 mmol/L (98-107); GLUCOSE 94 mg/dl (70-99); MAGNESIUM 1.8 mg/dl (1.8-2.4); POTASSIUM 3.9 mmol/L (3.5-5.1); SODIUM 139 mmol/L (136-145)
== END | disposition home or self-care (01) ==
LOC: C.LABBFT 14:20
PROVIDERS: ATTEND Internal Medicine Nephrology
DX: E83.42 Hypomagnesemia (principal)

== ENCOUNTER → 2017-10-01 | Outpatient (CLI) | payer OTHER, BC | END | disposition home or self-care (01) | LOC: C.LABBFT 12:38 | PROVIDERS: ATTEND Internal Medicine Endocrinology, Diabetes & Metabolism | DX: E89.0 Postprocedural hypothyroidism (principal) ==

== ENCOUNTER → 2017-10-04 | Outpatient (CLI) | payer OTHER, BC ==
--- NOTE | 2017-10-04 11:08 | DIAGNOSTIC IMAGING REPORT ---
TWO VIEW CHEST CLINICAL HISTORY: Cough. FINDINGS: PA and lateral chest radiographs are compared to study dated 11/05/2016 and correlated with chest CT dated 02/04/2017. The cardiomediastinal silhouette is unremarkable. Chronic interstitial thickening is similar to previous. No airspace consolidation or pleural effusion is identified. Left basilar atelectasis is observed. There is no pneumothorax. The skeletal structures are osteopenic. Degenerative change is seen in the thoracic spine. Cholecystectomy clips are noted in the right upper quadrant. A surgical clip is seen in the left neck. IMPRESSION: No active disease in the chest. Electronically signed by: Aidan Clarke M.D. 10/04/2017 11:07 AM Dictated Date/Time: 10/04/2017 11:05 AM
== END | disposition home or self-care (01) ==
LOC: C.RAD1850 10:33
PROVIDERS: ATTEND Family Medicine
DX: R05 Cough (principal)

== ENCOUNTER → 2017-11-07 | Outpatient (CLI) | payer OTHER, BC ==
--- NOTE | 2017-11-07 09:33 | DIAGNOSTIC IMAGING REPORT ---
MRCP CLINICAL HISTORY: RUQ PAIN nausea TECHNIQUE: Multi axial MRI acquisition COMPARISON STUDY: None FINDINGS: Prior cholecystectomy. Signal characteristics of the liver spleen and pancreas are uniform. No evidence of bowel obstructive change. Unremarkable signal characteristics of the kidneys. Negative MRCP component of the study. No evidence for choledocholithiasis. Biliary ductal system as well as pancreatic duct appear unremarkable. No evidence for ascites abnormal mass or collection. IMPRESSION: Normal study post cholecystectomy. The above report was generated using voice recognition software. It may contain grammatical, syntax or spelling errors. Electronically signed by: Sixto Fonseca M.D. 11/07/2017 9:32 AM Dictated Date/Time: 11/07/2017 9:29 AM
== END | disposition home or self-care (01) ==
LOC: C.MRI 08:35
PROVIDERS: ATTEND Internal Medicine Gastroenterology
DX: R10.11 Right upper quadrant pain (principal); R11.0 Nausea

== ENCOUNTER → 2017-11-08 | Outpatient (CLI) | payer OTHER, BC ==
--- NOTE | 2017-11-08 12:22 | DIAGNOSTIC IMAGING REPORT ---
ABD/PELVIS WITHOUT FOR STONE CLINICAL HISTORY: 77 years-old Female presenting with ABD PAIN, clinical concern for STONES, right lower quadrant pain, no hematuria, no history of stones. TECHNIQUE: Multidetector CT of the abdomen and pelvis was performed without the use of intravenous contrast. IV contrast: None. A dose lowering technique was used consistent with the principles of ALARA (as low as reasonably achievable). COMPARISON: 03/23/2017. CT DOSE (mGy.cm): The estimated cumulative dose is 1152.63 mGy.cm. FINDINGS: Magnetic Prospecting Operator topogram: Cholecystectomy clips. Lung bases: Lungs and pleural spaces clear. Normal heart size. Minimal aortic valve calcification. No pericardial or pleural effusion. Liver: Normal morphology. Normal density. Biliary: No gross biliary ductal dilatation allowing for noncontrast technique. Gallbladder surgically absent. Pancreas: Normal noncontrast appearance. Spleen: Normal noncontrast appearance. Adrenal glands: Normal noncontrast appearance. Kidneys and ureters: No nephrolithiasis. Exophytic hypodensity at the upper pole the right kidney indeterminate but likely cyst. Duplicated left renal collecting system. The left ureters appear to join in the proximal to mid course. No hydronephrosis. No ureteral calculi. Bladder: Normal. Pelvic organs: Normal prostate. Hyperdensity within the left seminal vesicle could suggest inspissated material, calcification, or hemorrhage. This is similar to prior exam. Bowel: Diverticulosis of the descending and sigmoid colon. The appendix is normal. No bowel obstruction. Peritoneal cavity: No free fluid or intraperitoneal gas. Lymph nodes: No enlarged lymph nodes in the abdomen or pelvis. Vasculature: Atherosclerosis of the normal caliber abdominal aorta. Abdominal wall: Small fat-containing umbilical hernia. Musculoskeletal: Degenerative changes of the spine. Bilateral pars defects of L5. Resulting anterolisthesis of L5 on S1. Degenerative changes of the bilateral hips, right greater than left. Degenerative changes of the pubic symphysis also noted. IMPRESSION: 1. The patient is now status post cholecystectomy. 2. No nephrolithiasis or hydronephrosis. 3. Diverticulosis. 4. No acute intra-abdominal pathology. Electronically signed by: Geovani Sarmiento M.D. 11/08/2017 12:20 PM Dictated Date/Time: 11/08/2017 12:12 PM
== END | disposition home or self-care (01) ==
LOC: C.CTS 11:30
PROVIDERS: ATTEND Family Medicine
DX: R10.9 Unspecified abdominal pain (principal); Z90.49 Acquired absence of other specified parts of digestive tract; K57.90 Diverticulosis of intestine, part unspecified, without perforation or abscess without bleeding

== ENCOUNTER → 2017-11-27 | Outpatient (CLI) | payer OTHER, BC ==
--- NOTE | 2017-11-27 12:43 | DIAGNOSTIC IMAGING REPORT ---
LEFT SECOND AND THIRD FINGER RADIOGRAPHS CLINICAL HISTORY: Finger deformity. Pain and swelling following injury. COMPARISON: None FINDINGS: No acute fracture is identified. There is marked joint space narrowing with osteophytosis within the distal interphalangeal joints of the left second, third and fourth digits as well as severe osteoarthritis within the left first carpometacarpal joint. Moderate osteoarthritis is noted within multiple additional articulations. IMPRESSION: 1. No acute fracture or dislocation within the left second or third digits. 2. 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 Electronically signed by: Matti Springer M.D. 11/27/2017 12:42 PM Dictated Date/Time: 11/27/2017 12:39 PM
== END | disposition home or self-care (01) ==
LOC: C.RAD1850 12:19
PROVIDERS: ATTEND Family Medicine
DX: M20.009 Unspecified deformity of unspecified finger(s) (principal)

== ENCOUNTER → 2017-11-29 | Outpatient (CLI) | payer OTHER, BC ==
--- NOTE | 2017-11-29 07:46 | DIAGNOSTIC IMAGING REPORT ---
ULTRASOUND OF THE RIGHT LOWER QUADRANT CLINICAL HISTORY: Right lower quadrant abdominal pain. COMPARISON STUDY: Abdominal CT dated 11/08/2017. FINDINGS: Real-time, grayscale, and color flow sonography of the right lower quadrant was performed at the site of pain. The appendix is not identified and reported surgically absent. No inflammatory changes or free fluid are seen in the right lower quadrant. No lymphadenopathy was seen. There is no evidence of hernia in the right lower quadrant. IMPRESSION: 1. No acute sonographic abnormality is identified in the right lower quadrant. 2. The appendix was not visualized and is reported surgically absent. Electronically signed by: Aidan Clarke M.D. 11/29/2017 7:44 AM Dictated Date/Time: 11/29/2017 7:39 AM
--- NOTE | 2017-11-29 08:25 | DIAGNOSTIC IMAGING REPORT ---
THORACIC SPINE 3 VIEWS CLINICAL HISTORY: Thoracic back pain. FINDINGS: AP, lateral, and swimmer's views of the thoracic spine are correlated with chest CT dated 02/04/2017. The skeletal structures are osteopenic. There is no radiographic evidence of fracture or malalignment involving the thoracic spine. Vertebral body height and alignment are maintained throughout the thoracic spine. Anterior osteophytes are seen throughout. The spinous processes are intact as visualized. The transverse processes and pedicles are grossly intact as seen on the frontal view. Multilevel degenerative disc space narrowing is seen in the lower thoracic region. The lung parenchyma is clear as visualized. Surgical clips are noted in the left lower neck. Cholecystectomy clips are noted. IMPRESSION: 1. There is no radiographic evidence of fracture or malalignment involving the thoracic spine. 2. Osteopenia and spondylotic change as above. Electronically signed by: Aidan Clarke M.D. 11/29/2017 8:24 AM Dictated Date/Time: 11/29/2017 8:22 AM
== END | disposition home or self-care (01) ==
LOC: C.ULTR 07:00
PROVIDERS: ATTEND Internal Medicine Gastroenterology
DX: R10.31 Right lower quadrant pain (principal)

== ENCOUNTER → 2018-01-02 | Outpatient (CLI) | payer OTHER, BC | END | disposition home or self-care (01) | LOC: C.LABBFT 12:03 | PROVIDERS: ATTEND Internal Medicine Endocrinology, Diabetes & Metabolism | DX: E89.0 Postprocedural hypothyroidism (principal) ==

== ENCOUNTER → 2018-01-03 | Outpatient (CLI) | payer OTHER, BC ==
--- NOTE | 2018-01-03 13:03 | DIAGNOSTIC IMAGING REPORT ---
PELVIC COMPLETE NON OB CLINICAL HISTORY: ABD PAIN PAIN COMPARISON STUDY: None FINDINGS: Patient is status post complete hysterectomy. No mass or collection bile 10 criteria. No free fluid within the pelvic cul-de-sac. IMPRESSION: Negative study post complete hysterectomy. The above report was generated using voice recognition software. It may contain grammatical no free fluid is identified. The bladder is midline., syntax or spelling errors. Electronically signed by: Sixto Fonseca M.D. 01/03/2018 1:01 PM Dictated Date/Time: 01/03/2018 12:59 PM
== END | disposition home or self-care (01) ==
LOC: C.ULTR 12:06
PROVIDERS: ATTEND Family Medicine
DX: R10.32 Left lower quadrant pain (principal); Z90.710 Acquired absence of both cervix and uterus

== ENCOUNTER → 2018-03-20 | Outpatient (CLI) | payer OTHER, BC ==
[2018-03-20 17:37] LABS: BASO % 0.3 %; BASO ABS # 0.02 K/uL (0-0.2); EOS % 1.3 %; HEMATOCRIT 42.4 % (37-47); HEMOGLOBIN 13.9 g/dL (12.0-16.0); IG# 0.02 K/uL (0.00-0.02); LYMPH % 16.3 %; LYMPH ABS # 1.25 K/uL (1.2-3.4); MEAN CELL VOLUME 91.6 fL (80-100); MEAN CORPUSCULAR HGB CONC 32.8 g/dl (32-36); MONO % 6.2 %; MONO ABS # 0.48 K/uL (0.11-0.59); NEUT % 75.6 %; NEUT ABS # 5.82 K/uL (1.4-6.5); PLATELET COUNT 303 K/uL (130-400); RED CELL DISTRIBUTION WIDTH CV 13.3 % (11.5-14.5); RED CELL DISTRIBUTION WIDTH SD 44.1 fL (36.4-46.3); WHITE BLOOD COUNT 7.69 K/uL (4.8-10.8)
[2018-03-20 17:54] LABS: ALBUMIN 3.6 gm/dl (3.4-5.0); ALKALINE PHOSPHATASE 66 U/L (45-117); ALT/SGPT 30 U/L (12-78); AST/SGOT 30 U/L (15-37); BLOOD UREA NITROGEN 15 mg/dl (7-18); CALCIUM 9.1 mg/dl (8.5-10.1); CARBON DIOXIDE 27 mmol/L (21-32); CREATININE 1.03 mg/dl (0.60-1.20); GLUCOSE 83 mg/dl (70-99); SODIUM 139 mmol/L (136-145)
== END | disposition home or self-care (01) ==
LOC: C.LABBFT 11:56
PROVIDERS: ATTEND Internal Medicine Endocrinology, Diabetes & Metabolism
DX: Z00.00 Encounter for general adult medical examination without abnormal findings (principal); Z85.3 Personal history of malignant neoplasm of breast; E89.0 Postprocedural hypothyroidism

== ENCOUNTER 2022-09-04 05:00 | Observation (INO) ==
--- NOTE | 2022-09-03 08:44 | Anesthesiology Consultation ---
Date of Service September 03, 2022 Assessment & Plan (1) Encounter for pre-operative examination: Chart Review Chart Review: Acceptable Risk for Surgery (pending DOS labs and EKG ) and Patient NOT seen in Pre Admission Testing -No preop testing order- will order CBC with diff, PRP, coags and EKG for stat AM of surgery -Will leave to anesthesiologist discretion DOS if CXR needed (PNB) -COVID screening: Per PAT nursing assessment on 08/28/22. Pt traveled to [place] for a - returned 08/23/22. Pt had sore throat 08/23/22 but is chronic for patient due to chronic post nasal drip. Sore throat improved as of 08/28/22. Sore throat chronic/intermittent- no preop testing needed from anesthesia standpoint. No known COVID-19 positive contacts. Travel screen negative. Patient vaccinated for Covid. At surgeon discretion if preop Covid testing being done. Pt seen by PCP 08/30/22= Seen for preop clearance for right shoulder surgery. Revised Conner class I (low risk). EKG from orthopedics office reviewed todayectopy noted, QTC 464 msslightly prolonged. Judicious use of QTC prolonging medications in the hospital if required, though minimally elevated and may just wish to consider repeat EKG. (Attempted numerous times to get EKG- report no available- will repeat DOS). Follows with cardiologylatest note reviewed. At this time, I do not find any contraindications with proceeding with surgery. Last seen by cardiology 05/16/2022 = patient seen for routine follow-up. Since last visit has done very well. Patient is stable from cardiovascular standpoint. Excellent control of BP. Fortunately, there has been no recurrence of symptomatic PVCs. Continue current medications. Follow-up in 1 year. History Surgery Operation Date: 09/04/22 07:00 Proposed Procedures p Right Shoulder Arthroscopy, Subacromial Decompression, Distal Clavicle Excision - Geovani Muir MD Height/Weight Height: 5 ft 2 in Weight: 72.575 kg Allergies Allergy/AdvReac Type Severity Reaction Status Date / Time adhesive Allergy Unknown SOME TAPES Verified 08/28/22 10:24 AND BANDAIDS-SKIN IRRITATION anastrozole Allergy Unknown OSTEOPOROSIS Verified 08/28/22 10:24 MUSCLE ACHES exemestane Allergy Unknown MUSCLE Verified 08/28/22 10:24 ACHES, OSTEOPOROSIS egg AdvReac Intermediate Diarrhea Verified 08/28/22 10:39 Medications Home Medications Medication Instructions Recorded Confirmed Last Taken tamoxifen 20 mg tablet 20 mg PO QAM 09/25/18 08/28/22 01/15/22 amiloride 5 mg tablet 5 mg PO QAM 12/16/19 08/28/22 01/15/22 cholecalciferol (vitamin D3) 50 2,000 unit PO QDD 07/25/20 08/28/22 01/15/22 mcg (2,000 unit) capsule (Vitamin D3) losartan 100 mg tablet (Cozaar) 100 mg PO QAM 08/02/20 08/28/22 01/16/22 07:45 vitamin B complex 1 cap PO 2XWK 01/11/22 08/28/22 01/14/22 levocetirizine 5 mg tablet (Xyzal) 5 mg PO DAILY PRN ALLERGY RELIEF 03/23/22 08/28/22 Unknown #90 tabs calcium 600 mg capsule 600 mg PO QPM 05/16/22 08/28/22 Unknown levothyroxine 100 mcg tablet 100 mcg PO QAM 05/16/22 08/28/22 Unknown (Synthroid) multivit with 1 tab PO QPM 05/16/22 08/28/22 Unknown xxroouee-[id number]-HZ-lutein 8 mg iron-400 mcg-300 mcg tablet (Centrum Silver Women) pramipexole 1 mg tablet See Rx Instructions .Route 08/28/22 08/28/22 Unknown .COMPLEX #90 tabs Past Medical History Medical History (Updated 09/03/22 @ 08:38 by Inga Severino PA-C) Asthma HAS NOT USED INHALER OVER 5 YEARS Chronic nasal discharge Has chronic post nasal drip- causes sore throat periodically. CKD (chronic kidney disease) Per records Hearing deficit History of breast cancer 2013 RT - S/P RADIATION, CHEMO, LUMPECTOMY History of thyroid cancer 1996 S/P RADIOACTIVE IODINE, THYROIDECTOMY Hyperlipidemia Hypertension Hypothyroidism (acquired) PVC (premature ventricular contraction) Follows with Dr Tierney. No problems/asymptomatic. Restless leg syndrome Sleep apnea "MILD" HX MACHINE, TOLD TO GET OFF MACHINE FALL 2020 - NO FOLLOW UP ON A NEW MACHINE Past Family History Family History Mother Family history of reaction to anesthesia SLOW TO WAKE Sister Family history of reaction to anesthesia Sister had reaction to medications used with surgery but does not have further details to provide/unknown reaction. Denies family or personal hx of MH or pseudocholinesterase deficiency Hypertension Stroke Sister Family history of diabetes mellitus Grandfather (Maternal) Family hx of colon cancer Brother Family hx of colon cancer Hypertension Mother Family hx of colon cancer Grandfather Hypertension Son Asthma Other Heart disease Past Surgical History Surgical History History of appendectomy History of breast biopsy History of cataract surgery BOTH History of cholecystectomy History of colonoscopy History of esophagogastroduodenoscopy (EGD) History of knee replacement RT/LEFT History of lumpectomy of right breast History of prosthetic unicompartmental arthroplasty of left knee History of revision of total replacement of left knee joint X2 History of revision of total replacement of right knee joint History of sinus surgery History of surgery Right sacroiliac joint cooled denervation History of thyroidectomy, total History of tonsillectomy and adenoidectomy History of tooth extraction History of total abdominal hysterectomy and bilateral salpingo-oophorectomy Status post biopsy of thyroid gland Social History Smoking Status: Never smoker Do You Dip or Chew Tobacco: No Hx Alcohol Use: Yes (SELDOM) Alcohol type: wine alcohol intake frequency: holidays/special occasions only Hx Substance Use: No substance use type: does not use
[2022-09-04 05:44] LABS: Basophils # (auto) 0.04 K/uL (0-0.2); Basophils % (auto) 0.5 %; Eosinophils # (auto) 0.24 K/uL (0-0.50); Eosinophils % (auto) 3.1 %; Hematocrit (blood only) 39.7 % (34.1-44.9); Hemoglobin 13.5 g/dl (12.0-16.0); Immature Granulocytes # (auto) 0.03 K/uL (0.00-0.02); Immature Granulocytes % (auto) 0.4 %; Lymphocytes # (auto) 2.32 K/uL (1.2-3.4); Lymphocytes % (auto) 30.3 %; Mean Corpuscular Volume 88.2 fL (80.0-100.0); Monocytes # (auto) 0.61 K/uL (0.24-0.82); Neutrophils # (auto) 4.41 K/uL (1.4-6.5); Neutrophils % (auto) 57.7 %; Platelet Count 273 K/uL (130-400); RDW Coefficient of Variation 12.7 % (11.5-14.5); RDW Standard Deviation 41.5 fL (36.4-46.3); White Blood Count 7.65 K/ul (4.8-10.8)
[2022-09-04 05:57] LABS: Partial Thromboplastin Ratio 0.9
[2022-09-04] MEDS ORDERED: ceFAZolin 2000MG 2,000 MG/15 ML SYR IV SCH (06:00)
[2022-09-04] MEDS ORDERED: LR 15ML/HR IV SCH (06:00)
[2022-09-04] MEDS ORDERED: LACTATED RINGER'S 1,000 ML IV SCH (06:00)
[2022-09-04 06:03] LABS: Calcium 8.9 mg/dl (8.5-10.1); Creatinine Clr Calc Pharmacy 40.6 ml/min; Est GFR (African American) 60.8 ml/min; Est GFR (Non-African American) 52.4 ml/min; Potassium 3.6 mmol/L (3.5-5.1)
[2022-09-04] MEDS ORDERED: ATROPINE SULFATE 0.1 MG/ML 10ML SYR IV PRN (06:03)
[2022-09-04] MEDS ORDERED: fentaNYL citrate 100 MCG/2 ML VIAL IV PRN (06:03)
[2022-09-04] MEDS ORDERED: ONDANSETRON INJ 2 MG/ML 2 ML VIAL IV PRN ×2 (06:03→10:06)
[2022-09-04] MEDS ORDERED: ePHEDrine sulfate 50 MG/ML AMP IV PRN (06:03)
[2022-09-04] MEDS ORDERED: PHENYLEPHRINE HCL 10 MG/ML VIAL ONE (06:16)
[2022-09-04] MEDS ORDERED: PROPOFOL IV EMULSION 10 MG/ML 20 ML VIAL IV ONE (06:16)
[2022-09-04] MEDS ORDERED: ONDANSETRON INJ 2 MG/ML 2 ML VIAL ONE (06:16)
[2022-09-04] MEDS ORDERED: DEXAMETHASONE SOD INJ 4 MG/ML VIAL ONE (06:16)
[2022-09-04] MEDS ORDERED: fentaNYL citrate 100 MCG/2 ML VIAL ONE (06:17)
[2022-09-04] MEDS ORDERED: MIDAZOLAM HCL 1 MG/ML 2ML VIAL ONE (06:17)
[2022-09-04] MEDS ORDERED: ROPIVACAINE 0.5% 5 MG/ML 30 ML VIAL ONE (06:17)
--- NOTE | 2022-09-04 06:39 | History & Physical Bridge Note ---
Date of Service September 04, 2022 History & Physical Bridge Note I have examined the patient, reviewed the History & Physical and in the interval since the performance of the History & Physical I have noted the following changes of clinical significance: no changes noted
[2022-09-04] MEDS ORDERED: EPINEPHrine INJ 1 MG/ML AMP ONE (06:46)
[2022-09-04] MEDS ORDERED: LIDOCAINE 1%/EPINEPHRINE 1:100,000 50 ML VIAL ONE (06:46)
--- NOTE | 2022-09-04 08:00 | Electrocardiogram Report ---
Test Reason : Blood Pressure : / mmHG Vent. Rate : 082 BPM Atrial Rate : 082 BPM P-R Int : 152 ms QRS Dur : 068 ms QT Int : 394 ms P-R-T Axes : 040 -12 036 degrees QTc Int : 460 ms Sinus rhythm with occasional Premature ventricular complexes Otherwise normal ECG When compared with ECG of 01-APR-2017 11:28, Premature ventricular complexes are now Present Confirmed by Ventura Gracia ([id number]) on 09/04/2022 8:00:13 AM Referred By: Geovani Muir Confirmed By:Ventura Gracia
--- NOTE | 2022-09-04 09:10 | Operative Report ---
Post Operative Report Pre & Post Diagnosis Operation Date: 09/04/22 07:00 Pre-Op Diagnosis: Chondrocalcinosis, chondrosis, biceps tendonitis, partial cuff repair, AC arthritis Post-Op Diagnosis: Chondrocalcinosis, chondrosis, biceps tendonitis, partial cuff repair, AC arth ritis I identified the patient and participated in the time-out.: Yes Procedure Operation Date: 09/04/22 07:00 Actual Procedures p Bicep Tenotomy scope, extensive debridtment, distal clavicle excision, subacromial decompression(Right) - Geovani Muir MD Surgeon Geovani Muir M.D. Tactical Response Group Officer Hilda Mendez PA-C Estimated Blood Loss 5 Findings Consistent with Post-Op Diagnosis Specimens Right distal clavicle Anesthesia Type General Regional Description of Procedure Patient was taken to the operating room, placed under general anesthesia. Given peripheral nerve block preoperatively. Given 2 gm IV Ancef for surgical proph ylaxis. Time out performed, prepped and draped in routine sterile fashion. I was present during the entire case, please see Dr. Muir's operative report for further detail. Patient was awakened and taken to the recovery room in stable condition. I attest to the content of the Intraoperative Record and any orders documented therein. Any exceptions are noted below.
--- NOTE | 2022-09-04 09:19 | Anesthesiology Progress Note ---
Date of Service September 04, 2022 Anesthesia Post Procedure Vital Signs Vital Signs: Temp Pulse Resp BP Pulse Ox O2 Del Method 09/04/22 05:31 37 C 89 18 156/94 H 98 Room Air Pain Intensity Right Shoulder: Pain Intensity: 0 Transfer of Care Handoff Completed per policy Notes Mental Status: alert / awake / arousable and participated in evaluation Patient Amnestic to Procedure: Yes Nausea / Vomiting: adequately controlled Pain: adequately controlled Airway Patency, RR, SpO2: stable & adequate BP & HR: stable & adequate Hydration State: stable & adequate Anesthetic Complications: no major complications apparent and Pt Satisfied with anesthetic care
--- NOTE | 2022-09-04 09:40 | Operative Report ---
Post Operative Report Pre & Post Diagnosis Operation Date: 09/04/22 07:00 Pre-Op Diagnosis: Right shoulder rotator cuff tendinitis with impingement syndrome and AC joint arthritis Post-Op Diagnosis: Chondrocalcinosis, chondrosis, biceps tendonitis, partial cuff tear, AC arthritis I identified the patient and participated in the time-out.: Yes Procedure Operation Date: 09/04/22 07:00 Actual Procedures p Bicep Tenotomy scope, arthroscopic extensive debridement, distal clavicle excision, subacromial decompression(Right) - Geovani Muir MD Surgeon Geovani Muir MD Insurance Investigator Hilda Mendez PA-C Estimated Blood Loss 5 Findings Consistent with Post-Op Diagnosis Specimens Distal clavicle Anesthesia Type General Regional Complications none Disposition Accompanied Patient To Recovery: No Disposition: Recovery Room Indications Belkys is 82. She has right shoulder pain which is consistent with rotator cuff syndrome. This is partially relieved but not completely responsive to therapy and injections. MRI shows rotator cuff is intact with tendinosis. She is taken to the OR for treatment. This could include debridement tenotomy distal clavicle excision rotator cuff debridement versus repair as indicated. Description of Procedure Informed consent obtained. Patient identified. She identified the operative site as the right shoulder. I marked with my initials. A preoperative surgical timeout was performed. A preop dose of antibiotics was given. She was taken to the OR positioned supine on the OR table. The anesthetic was administered. She was then positioned beachchair with the neck held in neutral alignment and the torso secured to the table. Kidney rest were utilized. Heels were padded. Foot pumps for DVT prophylaxis pillow underneath the knee. The head was turned slightly to the opposite side. The shoulder was prescribed and prepped and draped in the usual sterile fashion. The exam under anesthesia revealed range of motion 165 degrees forward elevation internal rotation of about 60 and external of 30 equal bilaterally. Bony prominences inspected and padded. Posterior soft spot viewing portal was established followed by an anterior mid glenoid working portal using the outside in technique. Chondrocalcinosis was identified and debrided were encountered. There were grade 2 and 3 changes involving the glenoid and humeral head but no grade 4 areas. The labrum was degenerative circumferentially particularly anteriorly and was debrided as encountered. There was thickening and partial fraying of the biceps tendon and a tenotomy was performed. Partial-thickness undersurface tearing of the supraspinatus was noted less than 5 mm in thickness. This was tagged with a PDS percutaneously. The rotator cuff was debrided. Subscap intact anterior inferior glenohumeral ligament intact. Axillary pouch was a little constricted but otherwise unremarkable. There was some mild generalized synovitis throughout. The posterior rotator cuff except for the supraspinatus as mentioned above was intact. Scope was placed anterior to visualize the posterior structures. Posterior capsule and labrum looked relatively okay. The rotator cuff was less than 5 mm from the articular surface and perhaps 5 to 10 mm anterior to posterior width. Good stride fibers were intact. Age-related degeneration of all tissues was noted. No loose bodies. The scope was placed into the subacromial space. Bursitis was noted. The tagged area of the rotator cuff was visualized and there was no bursal sided rotator cuff disease of any significance. A thorough subacromial bursectomy was performed. The CA ligament was identified and released. Spurring on the anterior acromion was debrided with a subacromial decompression using a modified cutting block technique removing about 2 to 4 mm of anterior bone. I also debrided about 2 mm of lateral bone secondary to some overhang and lateral prominence there as well. The shaver was run through the shoulder to strip picker any loose debris. The anterior 1 cm of the acromion was addressed. The anterior posterior and middle cuff were all intact. I then made an incision about 4 cm over the distal clavicle. The skin was sharply incised and blunt dissection was down to the deltotrapezial fascia. The distal clavicle was exposed by incising the fascia in line with the shaft of the clavicle and exposing it anterior and posterior. Large osteophytes were noted at the AC joint. The osteophyte on the acromial facet was debrided. The distal 7 to 10 mm of the clavicle was excised with a saw and sent for specimen. It appeared arthritic. Remaining osteophytes were debrided. There were no bony spicules and I can insert my finger within the space. Distal clavicle stable. This was then irrigated and closed with 0 Vicryl for the deltotrapezial fascia followed by 3-0 Vicryl and leigh on the skin. 4-0 nylon for the portals. The arm was cleaned with wet and dry sponges a soft roll dressing was applied Xeroform 4 x 4's ABDs including the armpit foam tape and a simple sling. She was awakened from anesthesia without difficulty and taken to the cart room in stable condition. The resected distal clavicle sent for specimen. Counts were correct blood loss was 5 cc at the conclusion the operation spoke with patient's informed of my findings postop instructions were given. She will be able to do early active range of motion as able. She will be admitted to hospital overnight for pain control and initiation of PT.. No complications. I attest to the content of the Intraoperative Record and any orders documented therein. Any exceptions are noted below.
[2022-09-04] MEDS ORDERED: CETIRIZINE HCL 10 MG TABLET PO PRN (10:06)
[2022-09-04] MEDS ORDERED: bisacodyL 10 MG SUPP PR PRN (10:06)
[2022-09-04] MEDS ORDERED: NALOXONE HCL 0.4 MG/1 ML VIAL/CARP IV PRN (10:06)
[2022-09-04] MEDS ORDERED: SODIUM CHLORIDE 0.9% 1000ML 1,000 ML IV SCH (10:06)
[2022-09-04] MEDS ORDERED: METOCLOPRAMIDE HCL INJ 5 MG/ML 2 ML VIAL IV PRN (10:06)
[2022-09-04] MEDS ORDERED: traMADol HCL 50 MG TABLET PO PRN (10:06)
[2022-09-04] MEDS ORDERED: MAGNESIUM HYDROXIDE SUSP 30 ML UDC PO PRN (10:06)
--- NOTE | 2022-09-04 12:34 | Orthopedic Progress Note ---
Date of Service September 04, 2022 Assessment & Plan (1) Status post arthroscopy of right shoulder: Plan: POD 0- Right shoulder arthroscopy, debridment, biceps tenotomy, subacromial decompression, distal clavicle excision. PT/OT tomorrow - allowed for finger, wrist, elbow, forearm and gentle shoulder ROM Sling right arm for comfort or until nerve block wears off. Keep dressings in place, reinforce as needed. May be comfortable with HOB elevated. may use right hand as able to for activities of daily living. Will re-eval in AM and plan for discharge home. Pain medication as prescribed. Elevated blood pressure, patient states she did not take her blood pressure me dicine this AM. Will discuss with DR. Muir and potentially will add hydralazine IV. Patient understands and agrees with the plan. Admission and Anticipated Discharge Date Admission Date: September 04, 2022 Subjective Patient sitting up in chair. Feeling good. No pain in right arm/shoulder, but nerve block functioning. Denies nausea/vomiting. Denies lightheadedness or dizziness. Denies chest pain or shortness of breath. Physical Exam Musculoskeletal: Right shoulder dressing clean, dry and intact. Right arm in sling. Unable to move fingers and really no feeling in right hand currently due to nerve block. Distal pulses 1+, hand is warm. Sling adjusted. Results & Data ([facility]) Vital Signs (Past 12 Hours) Vital Signs Temp Pulse Pulse Resp BP Pulse Ox O2 Del Method 09/04/22 11:04 36.4 C L 86 16 170/100 H 92 Room Air 09/04/22 10:40 36.4 C L 85 16 179/102 H 94 Room Air 09/04/22 10:10 36.4 C L 82 18 166/93 H 95 Room Air 09/04/22 09:45 36.5 C 79 23 162/88 H 98 Room Air 09/04/22 09:35 86 20 158/92 H 95 Room Air 09/04/22 09:25 82 22 166/96 H 95 Room Air 09/04/22 09:15 86 20 170/98 H 99 Room Air 09/04/22 09:09 36 C L 96 H 24 176/96 H 99 Oxymask 09/04/22 05:31 37 C 89 18 156/94 H 98 Room Air O2 Flow Rate 09/04/22 11:04 09/04/22 10:40 09/04/22 10:10 09/04/22 09:45 09/04/22 09:35 09/04/22 09:25 09/04/22 09:15 09/04/22 09:09 5 09/04/22 05:31
[2022-09-04] MEDS: ACETAMINOPHEN 500 MG TAB PO SCH ×2 (13:16→21:52)
[2022-09-04] MEDS ORDERED: hydrALAZINE HCL 20 MG/ML VIAL IV PRN (14:28)
[2022-09-04] MEDS: ceFAZolin 2000MG 2,000 MG/15 ML SYR IV SCH ×2 (15:35→22:36)
[2022-09-04] MEDS: LOSARTAN POTASSIUM 50 MG TAB PO SCH (15:35)
[2022-09-04] MEDS ORDERED: CHOLECALCIFEROL 1,000 UNITS 25 MCG TAB PO SCH (16:30)
[2022-09-04] MEDS: DOCUSATE SODIUM 100 MG CAP PO SCH (20:38)
[2022-09-04] MEDS ORDERED: CALCIUM CARBONATE 1250MG TAB PO SCH (21:00)
[2022-09-04] MEDS ORDERED: CEROVITE ADV FORMULA TAB PO SCH (21:00)
[2022-09-04] MEDS ORDERED: PRAMIPEXOLE DIHYDROCHLO 0.5 MG TAB PO SCH (21:00)
[2022-09-05] MEDS: HYDROCODONE/ACETAMOPHEN 5/325MG TAB PO PRN ×2 (01:25→11:42)
[2022-09-05] MEDS: ACETAMINOPHEN 500 MG TAB PO SCH (05:42)
[2022-09-05] MEDS ORDERED: LEVOTHYROXINE SODIUM 100 MCG TABLET PO SCH (06:30)
[2022-09-05] MEDS: DOCUSATE SODIUM 100 MG CAP PO SCH (08:30)
[2022-09-05] MEDS: LOSARTAN POTASSIUM 50 MG TAB PO SCH (08:31)
[2022-09-05] MEDS ORDERED: TAMOXIFEN CITRATE 10 MG TABLET PO SCH (09:00)
[2022-09-05] MEDS ORDERED: aMILoride HCL 5 MG TAB PO SCH (09:00)
[2022-09-05] MEDS ORDERED: LOSARTAN POTASSIUM 50 MG TAB PO SCH (09:00)
--- NOTE | 2022-09-05 10:55 | Progress Notes ---
DATE OF SERVICE: 09/05/2022. SUBJECTIVE: She is resting comfortably in bed. Her block has worn off. Pain is well controlled usi ng oral analgesics without significant side effects. PT is pending. Her blood pressure is better controlled today with her medication. She is afebrile. Vital signs are stable. Evaluation of the right arm reveals dressing clean and dry. Sling intact. Radial pulse 1+. Median, radial, ulnar, axillary, musculocutaneous motor and sensory functions intact. She has good movement of the right hand without significant swelling. IMPRESSION: Postoperative day #1 status post right shoulder arthroscopy, biceps tenotomy, rotator cu ff debridement, mini-open distal clavicle excision and an arthroscopic subacromial decompression and bursectomy. PLAN: I discussed with her my findings related to surgery. She did have some arthrosis in addition to the other things mentioned above. She may use the arm for simple light ADLs. Encouraged not to o veruse it. May gradually wean sling as symptoms allow. We have PT arranged for later this week. Lacho dwyer will have some therapy done today, and if doing well and pain controlled, we can let her be dischar ged home. Followup is scheduled in my office for two weeks. Her pain medications will be sent in. Routine postop care with sling, rest, ice, medication. DVT prophylaxis not necessary. Job ID: [id number]
--- NOTE | 2022-09-06 13:10 | Discharge Summary ---
Date of Service September 06, 2022 Discharge Data Procedures Performed Operation Date: 09/04/22 07:00 Actual Procedures p Bicep Tenotomy scope, extensive debridtment, distal clavicle excision, subacromial decompression(Right) - Geovani Muir MD Hospital Course (1) Status post arthroscopy of right shoulder: Patient underwent a right shoulder arthroscopy, debridement, subacromial decompression, biceps tenotomy and distal clavicle excision with Dr. Muir on September 04, 2022. Her surgery was performed with general anesthesia and a peripheral nerve block. She was given 2 g of IV Ancef for surgical prophylaxis which was continued for 24 hours postoperatively. She was then kept in the hospital for observation and pain control. She was allowed out of bed, nonweightbearing right upper extremity. She had a peripheral nerve block so a sling was provided to her right upper arm for comfort. She was given tramadol 50 mg p.o. every 6 hours for mild to moderate pain and [place] 1 tablet every 6 hours as needed for severe pain for postoperative pain control. Her home medications were continued. Immediately postoperatively she did have some elevated blood pressure but she did say that she did not take her normal blood pressure medications that morning. Her losartan was given the afternoon of her surgery and her blood pressures remain controlled the rest of her stay. She was given a regular diet. She did not develop any postoperative nausea, vomiting, chest pains or shortness of breath. On postoperative day 1 her nerve block had worn off and she regained normal sensation and movement of her right upper extremity. Distal pulses were 1+. Her dressings were kept in place and plan to be changed on postoperative day 3 at her first postoperative physical therapy appointment. She was seen and evaluated by physical therapy and Occupational Therapy. She was deemed safe for discharge to her home. She was discharged to her home in stable condition on September 05, 2022. Postoperative appointments have been scheduled. Discharge instructions were reviewed. All questions were answered prior to discharge. Her pain medications were sent into her pharmacy.
== END 2022-09-05 13:05 | disposition home or self-care (01) ==
LOC: 3E 05:00 → ASU 05:00

== ENCOUNTER 2023-11-27 08:59 | Observation (INO) ==
--- NOTE | 2023-11-07 15:24 | PAT Medication Instructions ---
Medication Instructions Date of Service November 07, 2023 Home Medications tamoxifen 20 mg tablet 20 mg PO QAM cholecalciferol (vitamin D3) 50 mcg (2,000 unit) capsule (Vitamin D3) 2,000 unit PO QPM losartan 100 mg tablet (Cozaar) 100 mg PO QAM vitamin B complex 1 cap PO UD levothyroxine 100 mcg tablet (Synthroid) 100 mcg PO QAM [id number] 8 mg-folic 400 mcg-K 50 mcg-lutein 300 mcg tablet (Centrum Silver Women) 1 tab PO QPM amiloride 5 mg tablet 10 mg PO QAM ipratropium bromide 21 mcg (0.03 %) nasal spray 2 spray intranasal BID PRN levocetirizine 5 mg tablet 5 mg PO DAILY PRN pramipexole 1 mg tablet 1 mg PO HS ASK your prescriber and surgeon tamoxifen 20 mg tablet 20 mg PO QAM DO NOT take the morning of surgery losartan 100 mg tablet (Cozaar) 100 mg PO QAM vitamin B complex 1 cap PO UD amiloride 5 mg tablet 10 mg PO QAM levocetirizine 5 mg tablet 5 mg PO DAILY PRN Take morning of surgery With a small sip of water, OTHERWISE NOTHING TO EAT OR DRINK AFTER MIDNIGHT: levothyroxine 100 mcg tablet (Synthroid) 100 mcg PO QAM ipratropium bromide 21 mcg (0.03 %) nasal spray 2 spray intranasal BID PRN(if needed) Take evening before surgery cholecalciferol (vitamin D3) 50 mcg (2,000 unit) capsule (Vitamin D3) 2,000 unit PO QPM [id number] 8 mg-folic 400 mcg-K 50 mcg-lutein 300 mcg tablet (Centrum Silver Women) 1 tab PO QPM ipratropium bromide 21 mcg (0.03 %) nasal spray 2 spray intranasal BID PRN(if needed) pramipexole 1 mg tablet 1 mg PO HS Other Notes If you have any questions please call us at [phone] or [phone] or [phone] or [phone]
--- NOTE | 2023-11-12 10:53 | Anesthesiology Consultation ---
Date of Service November 12, 2023 Assessment & Plan (1) Encounter for pre-operative examination: - Infectious disease screening: Per assessment on 11/12/23: No known infectious disease contacts or current infectious disease symptoms. No noted recent Covid positive test result. - Outpatient joint assessment: Pt currently scheduled for inpatient pathway. If surgeon requests review for outpatient joint pathway, patient is not recommended candidate for outpatient joint program from anesthesia standpoint based on available information. - S/P Right Shoulder Arthroscopy, Subacromial Decompression, Distal Clavicle Excision (09/04/22): Grade 2 view, ETT 7.0 + regional at [facility] - Patient acceptable risk for surgery pending surgeon-ordered cardio preop eval uation ([facility] cardio, appt 11/14). Chart Review Chart Review: Patient seen in Pre Admission Testing Teaching & Discussion Pre-Anesthesia Teaching/Discussion Notes: Instructed NPO after midnight before surgery,except medications with 15 cc of water. Medication instructions provided according to the PAT guidelines. History Surgery Operation Date: 11/27/23 10:50 Proposed Procedures p Right Total Shoulder Arthroplasty - Joss Vu MD Height/Weight Height: 5 ft 2.25 in Weight: 72.1 kg Allergies Allergy/AdvReac Type Severity Reaction Status Date / Time adhesive Allergy Unknown Skin Verified 11/12/23 09:54 irritation (some tapes/bandaids) anastrozole Allergy Unknown Osteoporosis, Verified 11/12/23 09:54 muscle aches exemestane Allergy Unknown Osteoporosis, Verified 11/12/23 09:54 muscle aches egg AdvReac Intermediate Diarrhea Verified 11/07/23 13:13 Medications Home Medications Medication Instructions Recorded Confirmed Last Taken tamoxifen 20 mg tablet 20 mg PO QAM 09/25/18 11/07/23 09/03/22 08:00 cholecalciferol (vitamin D3) 50 2,000 unit PO QPM 07/25/20 11/07/23 09/03/22 17:00 mcg (2,000 unit) capsule (Vitamin D3) losartan 100 mg tablet (Cozaar) 100 mg PO QAM 08/02/20 11/07/23 09/03/22 08:00 vitamin B complex 1 cap PO UD 01/11/22 11/07/23 09/03/22 17:00 levothyroxine 100 mcg tablet 100 mcg PO QAM 05/16/22 11/07/2309/04/23 03:30 (Synthroid) hhwqidly-jram-edwe 8 mg-folic 400 1 tab PO QPM 05/16/22 11/07/23 09/03/22 17:00 mcg-K 50 mcg-lutein 300 mcg tablet (Centrum Silver Women) amiloride 5 mg tablet 10 mg PO QAM 04/01/23 11/07/23 Unknown ipratropium bromide 21 mcg (0.03 2 spray intranasal BID PRN 11/07/23 11/07/23 Unknown %) nasal spray Congestion levocetirizine 5 mg tablet 5 mg PO DAILY PRN Allergy Symptoms 11/07/23 11/07/23 Unknown pramipexole 1 mg tablet 1 mg PO HS 11/07/23 11/07/23 Unknown Past Medical History Medical History Asthma Chronic nasal discharge Chronic post-nasal drip (chronic/intermittent sore throat r/t post-nasal drip) CKD (chronic kidney disease) Per records Hearing deficit B/L hearing aids History of breast cancer Right, 2013- s/p xrt/chemo/lumpectomy History of thyroid cancer 1996- s/p radioactive iodine/thyroidectomy Hyperlipidemia Hypertension Hypothyroidism (acquired) Pain in right axilla Chronic issue, unchanged/at baseline PVC (premature ventricular contraction) Follows with Dr Tierney, no current/recent issues Restless leg syndrome Sleep apnea "Mild"- s/p UPPP Has not used device since recalled Fall 2020 (has not received information regarding new device) Exercise / Class Metabolic Activity II 4-5 Yardwork/Stairs/Walk up hill (one FS (no CP, no SOB)) Past Family History Family History Mother Family history of reaction to anesthesia Slow to wake Sister Family history of reaction to anesthesia Sister had reaction to medications used with surgery but does not have further details to provide/unknown reaction. Denies family or personal hx of MH or pseudocholinesterase deficiency. Hypertension Stroke Sister Family history of diabetes mellitus Grandfather (Maternal) Family hx of colon cancer Brother Family hx of colon cancer Hypertension Mother Family hx of colon cancer Grandfather Hypertension Son Asthma Other Heart disease Past Surgical History Surgical History History of appendectomy History of breast biopsy History of cataract surgery R/L History of cholecystectomy History of colonoscopy History of esophagogastroduodenoscopy (EGD) History of knee replacement R/L History of lumpectomy of right breast History of prosthetic unicompartmental arthroplasty of left knee History of revision of total replacement of left knee joint x2 History of revision of total replacement of right knee joint History of sinus surgery History of surgery Right sacroiliac joint cooled denervation History of thyroidectomy, total History of tonsillectomy and adenoidectomy History of tooth extraction History of total abdominal hysterectomy and bilateral salpingo-oophorectomy History of uvulopalatopharyngoplasty Hx of arthroscopy of shoulder Right Shoulder Arthroscopy, Subacromial Decompression, Distal Clavicle Excision (09/04/22): Grade 2 view, ETT 7.0 + regional at [facility] Status post biopsy of thyroid gland Past Anesthesia History No Hx of Anesthesia Complications * Sister: Sister had reaction to medications used with surgery but does not have further details to provide/unknown reaction. Denies family or personal hx of MH or pseudocholinesterase deficiency- states that sister was not told to advise family of reaction or pursue further personal/family genetic testing in relation to sister's reaction. No personal issues with anesthesia. * Mother: Slow to wake History of PONV No Hx of PONV and No Hx of Motion Sickness Social History Smoking Status: Never smoker Do You Dip or Chew Tobacco: No Hx Alcohol Use: Yes Alcohol type: wine alcohol intake frequency: holidays/special occasions only Hx Substance Use: No substance use type: does not use Review of Systems Patient denies chest pain, shortness of breath, dyspnea on exertion, fever, chills, cough, wheezing, palpitations. Physical Exam Vital Signs BP 124/83 P 91 TEMP 98.4 SP02 96%RA RESP 18 Physical Full cervical extension range of motion. Full TMJ range of motion. TMD 3 finger breaths Mallampati Score 1 Dentition: several missing upper/lower (awaiting lower partial, upper full dentures to be made) Lungs: clear throughout to auscultation Cardiac: regular rate and rhythm, no murmurs noted Spine: normal Carotid arteries: negative bruit Extremities: no LE edema Lab Results Anesthesia Preop Results Results Anesthesia Widget: WBC 7.20 K/ul (4.8-10.8) 11/12/23 Hgb 13.9 g/dl (12.0-16.0) 11/12/23 Hct 42.0 % (37.0-47.0) 11/12/23 Plt 222 K/uL (130-400) 11/12/23 Na 137 mmol/L (136-145) 11/12/23 K 3.7 mmol/L (3.5-5.1) 11/12/23 Cl 102 mmol/L (98-107) 11/12/23 CO2 28 mmol/L (21-32) 11/12/23 BUN 14 mg/dl (6-23) 11/12/23 Creat 0.97 mg/dl (0.6-1.2) 11/12/23 Glucose Level 84 mg/dl (70-99(Fasting)) 11/12/23 PT 10.7 Seconds (9.0-12.0) 11/12/23 PTT 26 Seconds (21-31) 11/12/23 INR 1.0 (0.9-1.1) 11/12/23 Urine Color Yellow 11/12/23 Urine Appearance Clear (Clear) 11/12/23 Urine pH 7.0 (4.5-7.5) 11/12/23 Urine Specific [place] 1.012 (1.000-1.030) 11/12/23 Urine Protein Negative (Negative) 11/12/23 Urine Glucose (UA) Negative (Negative) 11/12/23 Urine Ketones Negative (Negative) 11/12/23 Urine Blood Negative (Negative) 11/12/23 Urine Nitrite Negative (Negative) 11/12/23 Urine Bilirubin Negative (Negative) 11/12/23 Urine Urobilinogen Negative (Negative) 11/12/23 Urine Leukocyte Esterase Negative (Negative) 11/12/23 Blood Type O Positive 11/12/23 Antibody Screen NEGATIVE 11/12/23 Testing Electrocardiogram Date: 11/12/23 NSR at 83bpm. Low voltage QRS. Compared to 09/04/2022, PVCs no longer present per core extruder comparison. Chest X-Ray Date: 11/12/23 FINDINGS: No lines and tubes are seen. The cardiomediastinal silhouette is normal. The lungs are clear. No evidence of pleural effusion or pneumothorax. Scoliosis is seen. IMPRESSION: No acute chest disease.
--- NOTE | 2023-11-27 06:52 | History & Physical Bridge Note ---
Date of Service November 27, 2023 History & Physical Bridge Note I have examined the patient, reviewed the History & Physical and in the interval since the performance of the History & Physical I have noted the following changes of clinical significance: no changes noted
[~2023-11-27 08:59] MED LIST changes: -B-COTAB18 PO; +BUPIVACAINE 0.5 % 5 MG/1 ML PF 10ML VIAL ONE; -CALC600T37 PO; -CHOL1CAP57 PO; -HYDR-5688 PO; -HYDR25TA5 PO; -HYZ/50125 PO; -LEVO-14 PO; -MRP5 PO; -MULT-845 PO; -NLV/20 PO; -PRVC/20 PO; -THY/30 PO
[2023-11-27] MEDS ORDERED: DEXAMETHASONE SOD INJ 4 MG/ML VIAL ONE (09:42)
[2023-11-27] MEDS: LR 15ML/HR IV SCH (09:42)
[2023-11-27] MEDS: LR 60ML/HR IV SCH (09:42)
[2023-11-27] MEDS ORDERED: ONDANSETRON INJ 2 MG/ML 2 ML VIAL ONE (09:42)
[2023-11-27] MEDS ORDERED: PROPOFOL IV EMULSION 10 MG/ML 20 ML VIAL IV ONE ×2 (09:42→10:02)
[2023-11-27] MEDS ORDERED: LIDOCAINE 2% 2 ML VIAL/AMP(20MG/ML) INFIL ONE (09:42)
[2023-11-27] MEDS ORDERED: fentaNYL citrate PF 100 MCG/2 ML VIAL ONE ×2 (09:43→12:33)
[2023-11-27] MEDS ORDERED: LARYING-O-JET KIT (LTA) ONE (10:02)
[2023-11-27] MEDS ORDERED: ROCURONIUM BROMIDE 10 MG/ML 5 ML VIAL IV ONE (10:02)
[2023-11-27] MEDS ORDERED: KETOROLAC 30 MG/ML VIAL IV PRN (10:15)
[2023-11-27] MEDS ORDERED: ATROPINE SULFATE 0.1 MG/ML 10ML SYR IV PRN (10:15)
[2023-11-27] MEDS ORDERED: ONDANSETRON INJ 2 MG/ML 2 ML VIAL IV PRN ×2 (10:15→15:56)
[2023-11-27] MEDS: TRANEXAMIC ACID 1,000 MG **IV Pre-op IV SCH (11:11)
[2023-11-27] MEDS: ceFAZolin 2000MG 2,000 MG/15 ML SYR IV SCH ×2 (11:30→18:42)
[2023-11-27] MEDS ORDERED: PHENYLEPHRINE 100MCG/ML 10ML SYR IV ONE (11:59)
[2023-11-27] MEDS ORDERED: SUGAMMADEX SODIUM 200 MG/2 ML VIAL IV ONE (12:23)
[2023-11-27] MEDS: TRANEXAMIC ACID 1,000 MG **IV Intra-op IV SCH (13:03)
[2023-11-27] MEDS: THROMBIN FOR SOLN 20000 UNIT KIT ONE (13:07)
--- NOTE | 2023-11-27 13:15 | Post Operative Brief Note ---
Immediate Post Op Note v1 Date of Surgery November 27, 2023 Pre & Post Diagnosis Operation Date: 11/27/23 10:40 Pre-Op Diagnosis: Right Shoulder Osteoarthritis of Glenohumeral Joint Post-Op Diagnosis: Right Shoulder Osteoarthritis of Glenohumeral Joint I identified the patient and participated in the time-out.: Yes Procedure Operation Date: 11/27/23 10:40 Actual Procedures p Right Total Shoulder Arthroplasty(Right) - Joss Vu MD Surgeon Joss Vu MD Chairman & Chief Executive Officer PRINCESS/Tigist Estimated Blood Loss 75 Findings Consistent with Post-Op Diagnosis Severe osteoarthritis intact rotator cuff Fluids See anesthesia report Complications None
--- NOTE | 2023-11-27 13:19 | Operative Report ---
Post Operative Report Pre & Post Diagnosis Operation Date: 11/27/23 10:40 Pre-Op Diagnosis: Right Shoulder Osteoarthritis of Glenohumeral Joint Post-Op Diagnosis: Right Shoulder Osteoarthritis of Glenohumeral Joint I identified the patient and participated in the time-out.: Yes Procedure Operation Date: 11/27/23 10:40 Actual Procedures p Right Total Shoulder Arthroplasty(Right) - Joss Vu MD Surgeon Joss Vu MD Referral And Information Aide PRINCESS/Tigist Estimated Blood Loss 75 Findings Consistent with Post-Op Diagnosis Severe osteoarthritis intact rotator cuff Fluids See anesthesia report Specimens Bone Drains None Complications None Indications Severe pain failed conservative management Description of Procedure After the patient was appropriate notified site verified consent verified antibiotics confirmed as being given the right upper extremity was examined revealing no instability she had forward flexion to 150 abduction 140 rotation from belly to 20. She was then carefully placed a beachchair position right upper extremity prepped and draped use routine fashion. Deltopectoral incision was utilized full-thickness flaps were raised. The deltopectoral interval was opened up cephalic vein was protected and retracted with the deltoid. Clavipectoral fascia was then incised and the conjoined tendon retracted medially and the deltoid laterally. Inferior humeral circumflex vessels were then identified coagulated carefully with care protecting the axillary nerve with a finger on it. The subscapularis was then completely peeled off. Rotator interval was opened. Stitch was placed in the supraspinatus . #1 Vicryl. The capsule was then released off the anterior glenoid neck and there was good mobility of the subscapularis. There were huge osteophytes on the anterior neck of the humerus these were released humeral head and was resected after it was di slocated. Excellent exposure of the acetabulum then carried out as she has not centering hole was made and then reaming placed everything looked good. The glenoid was nice and flat. It was sized to a 44. Seating holes were then made for the Global shoulder system center setting hole and then 3 pegs 1 proximal to distal. Once this was done it was irrigated carefully thrombin placed and then the permanent cemented into position with care not putting any cement in the central glenoid peg. Excellent fixation was obtained after 12 minutes everything was solid and no cement removal was required. Humerus was then delivered in the wound and the proximal humerus was prepared reaming up to a size 10 stem body was 135 degree size 10 excellent stability was achieved with a 44 x 21 eccentric head. Once this was all removed the #2 FiberWire sutures were placed in the tuberosity the stem was then placed and sutures were placed around that as well and tightened. The stem was then completely seated. Excellent fixation rotation was obtained. 44 head was then placed 44 x 21 and then everything was reduced. Shoulder was then closed with the arm abducted 30 degrees and externally rotated 15 degrees. Repair of the rotator interval with the Vicryl and with the excellent care of the subscap with the sutures to bone around the stem were provided with #2 FiberWire's they were then placed again on themselves 2. A blocking type sutures repair. Wound was then irrigated 1 final time with Pulsavac Betadine the biceps was tenodesed to the subscap stitches and then the wound closed with #2 plain and stainless to clips appropriate dressing applied the patient transferred recovery in satisfactory descending tolerated the procedure well. EBL was 75 cc or less pathology pending on bone. Crystalloid per anesthesia. Summary of implants Global anchor peg glenoid size 44 anatomic proximal body size 10 x 135 size 10 stem size 44 x 21 eccentric head metal. Family noted and contacted. DVT prophylaxis with aspirin. I attest to the content of the Intraoperative Record and any orders documented therein. Any exceptions are noted below.
--- NOTE | 2023-11-27 13:22 | Discharge Summary ---
Date of Service November 28, 2023 Admission HPI Per Admitting Provider Severe right shoulder pain with x-rays revealing end-stage Principal Diagnosis Glenohumeral joint osteoarthritis intact rotator cuff right shoulder Discharge Data Allergies Allergy/AdvReac Type Severity Reaction Status Date / Time anastrozole Allergy Severe Osteoporosis, Verified 11/27/23 09:24 muscle aches exemestane Allergy Severe Osteoporosis, Verified 11/27/23 09:24 muscle aches adhesive Allergy Intermediate Skin Verified 11/27/23 09:24 irritation (some tapes/bandaids) Vaccinations None Consultations None Procedures Performed Operation Date: 11/27/23 10:40 Actual Procedures p Right Total Shoulder Arthroplasty(Right) - Joss Vu MD Ordered Studies 11/27/23 05:00 US - OR guided needle placemen Routine Hospital Course (1) Status post replacement of right shoulder joint: Plan Discharge care pathway Total Time Total Time Spent Total Time Spent (In Minutes): 5 Discharge Plan Discharge Items Patient Disposition: Home - Self-Care Reason For Visit: RIGHT SHOUDLER S/P TOTAL SHOULDER ARTHOPLASTY Discharge Diagnosis: Right shoulder status post total replacement Condition on Discharge: Good Activity: Per Instructions section Lifting: Wait until after follow-up appointment Bathing: Keep incision dry Sexual Activity: Wait until after follow-up appointment Exercise/Sports: Wait until after follow-up appointment Driving/Machine Use: No driving until cleared by Dr. uV Weightbearing Comment: No weightbearing on right arm Non-emergency contact: Surgeon Call non-emergency contact if: you have any medication questions, your pain is not controlled, your temperature is above 101.5, your wound has increased redness, your wound has increased drainage and your wound pain has increased Follow-up/Referrals: Kell Jorge [Primary Care Provider] - Diet: Heart Healthy Add Attending Provider Instructions: The following are instructions to follow after "Shoulder Surgery" including, Acromioplasty, Rotator Cuff Repair and Instability Surgery ACTIVITY RECOMMENDATIONS: * Minimize activity after surgery. * No excessive walking, jogging, sports or laboring. * Return to activity is individualized depending on the patient and type of surgery. * Driving is not permitted until at least your first post operative visit. Please ask your doctor when it is safe to resume driving. * Expect increased discomfort with increased activity. Continue to ice the shoulder as needed. SCHOOL/WORK RECOMMENDATIONS: * You may return to sedentary work or school when you are feeling more comfortable. This is usually 3-7 days after surgery. MEDICATIONS: * You will have a prescription for pain medication after surgery. * Use the pain medication for severe pain and an anti-inflammatory for less severe pain. Once the pain medication has run out, try to use the anti-inflammatory medication. If this is not effective, contact the office for assistance. * The pain medication may cause nausea, constipation and drowsiness. You should see how they affect you before driving or similar activity. * The anti-inflammatory medication may cause stomach upset and bleeding. If this occurs let your doctor know immediately . * Take a stool softener like Colace or a laxative like Senokot to prevent constipation. DIET: * Resume previous diet. SPECIAL CARE: ICE: You have the option of gel packs or ice bags. Do not apply ice directly to the skin. Use a thin dressing or dillon shirt between the skin and ice bag. Apply ice for 20-30 minutes and repeat every 2-4 hours. This is especially important for the first 7-10 days after surgery. Once the pain improves, use ice as needed. ELEVATION: * You may be more comfortable sleeping in an upright position. Use the sling to elevate your arm. DRESSING: * Your dressing will be changed at your first therapy appointment 1 day after surgery. Band-aids, tape strips or gauze may be applied. You may then change your dressing daily. * Reapply dressing followed by the sling. * Always wash your hands prior to touching the incision area. * Once the stitches are removed, you may leave the wound open to air or cover with gauze. * Expect some bloody drainage for the first few days after surgery. * Leave the tape strips, if present, in place for 5-7 days. * Band-aids and gauze may be changed daily. * There may be a gauze pad in your armpit area. This can be changed daily or replaced by a dry washcloth. SLING/BRACE: * You will need to use a sling or brace after surgery. The length of time the sling is used is dependent upon the type of surgery performed. * Arthroscopic Acromioplasty requires use of the sling for 2-4 weeks for comfort. * Labral procedures and Rotator Cuff Repairs require use of the sling for a longer period of time. Please check with your doctor prior to discontinuing the sling. BATHING: * You may shower or sponge-bathe immediately after surgery. The post operative shoulder dressing is mostly water-tight. You may shower right over this dressing, but be reasonably careful not to get the gauze or incision wet. * Wash with regular soap and water. * Do not bathe (submerge the incision), soak, swim or use a hot tub until the incision is completely healed over with normal skin and the doctor has given the OK to proceed. * There is no need to apply any ointments, powders or salves to your incision. * Do not apply alcohol or hydrogen peroxide directly to the incision. * Diluted peroxide (50:50 mixture with sterile saline) may be used to clean dried blood from around the incision area. THERAPY: * You will begin therapy 1 day after surgery. * Organized therapy with the therapist is important for the first 2-4 months after surgery depending on the type of procedure. During that time you will attend therapy 1-3 times per week. * You will also need to do daily exercises for range of motion and strength as instructed. * Patients who have a shoulder replacement procedure will need to abide by temporary range of motion limitations. * Patients having Rotator Cuff Surgery are not allowed to actively lift their arms until 4-6 weeks after surgery. * Please check with your doctor regarding appropriate motion restrictions. FOLLOW UP VISIT: * If not already scheduled, please call the office at to schedule a follow-up appointment for 10 days after surgery and monthly thereafter. Use the sling at all times, including sleep Ice and elevate the shoulder frequently to reduce pain and swelling Sleeping upright in a chair or corner of the couch may be more comfortable and provide better rest Follow-up in the office in 2 weeks as scheduled for staple removal Do not lift anything with the arm until instructed to do so by therapy Pending Studies at Discharge: Yes (Bone pathology) Studies:: Bone pathology Stand-Alone Forms: My [facility] Medications and DC Order Prescriptions: No Action losartan [Cozaar] 100 mg tablet 100 mg PO QAM amiloride 5 mg tablet 10 mg PO QAM tamoxifen 20 mg Tablet 20 mg PO QAM cholecalciferol (vitamin D3) [Vitamin D3] 50 mcg (2,000 unit) capsule 2,000 unit PO QPM Centrum Silver Women 8 mg iron-400 mcg-300 mcg tablet 1 tab PO QPM vitamin B complex Capsule 1 cap PO UD Patient Comments: SAT AND SAT Rx Instructions: saturday and saturday levothyroxine [Synthroid] 100 mcg tablet 100 mcg PO QAM Patient Comments: TAKES IN AM pramipexole 1 mg tablet 1 mg PO HS Rx Instructions: TAKE 1 TABLET BY MOUTH AT BEDTIME ipratropium bromide 21 mcg (0.03 %) spray,non-aerosol 2 spray intranasal BID PRN (Reason: Congestion) Rx Instructions: administer into each nostril levocetirizine 5 mg tablet 5 mg PO DAILY PRN (Reason: Allergy Symptoms) Rx Instructions: TAKE 1 TABLET BY MOUTH ONCE DAILY IF NEEDED for allergy relief Discharge Orders: Discharge Order (Routine); Ordered 11/28/23 Ordered By: Joss Vu Admission Data Admit Date/Time: 11/27/23 13:49 Attending Provider: Joss Vu Admit Provider: Joss Vu Primary Care Provider: Kell Jorge
--- NOTE | 2023-11-27 13:23 | Orthopedic Progress Note ---
Date of Service November 27, 2023 Orthopedic Progress Note Underwent right total shoulder replacement. Awoke from anesthesia with no issues. She notes that her pain is well-managed with her block block is in place wound dressing clean dry and intact family notified. X-ray pending.
--- NOTE | 2023-11-27 13:30 | Operative Report ---
Post Operative Report Pre & Post Diagnosis Operation Date: 11/27/23 10:40 Pre-Op Diagnosis: Right Shoulder Osteoarthritis of Glenohumeral Joint Post-Op Diagnosis: Right Shoulder Osteoarthritis of Glenohumeral Joint I identified the patient and participated in the time-out.: Yes Procedure Operation Date: 11/27/23 10:40 Actual Procedures p Right Total Shoulder Arthroplasty(Right) - Joss Vu MD Surgeon Joss Vu MD Supervisor Rod Placing PRINCESS/Tigist Estimated Blood Loss 75 Findings Consistent with Post-Op Diagnosis Same as postoperative diagnosis. Specimens The resected portion of the proximal humerus. Description of Procedure Please see detailed operative note. I attest to the content of the Intraoperative Record and any orders documented therein. Any exceptions are noted below.
--- NOTE | 2023-11-27 13:33 | Operative Report ---
Post Operative Report Pre & Post Diagnosis Operation Date: 11/27/23 10:40 Pre-Op Diagnosis: Right Shoulder Osteoarthritis of Glenohumeral Joint Post-Op Diagnosis: Right Shoulder Osteoarthritis of Glenohumeral Joint I identified the patient and participated in the time-out.: Yes Procedure Operation Date: 11/27/23 10:40 Actual Procedures p Right Total Shoulder Arthroplasty(Right) - Joss Vu MD Surgeon LOYDA Vu MD Manager Core PRINCESS/Tigist COUGHLIN Estimated Blood Loss 75 Findings Consistent with Post-Op Diagnosis see operative report Specimens see operative report Drains none Complications none Disposition Accompanied Patient To Recovery: Yes Indications This 83 year old female presented to the office with complaints of persisting right shoulder pain. She had tried conservative care measures without improvement. She elected to proceed with surgical intervention after being educated about potential risks and outcomes. Preoperative imaging was obtained. Description of Procedure The patient was administered a regional block and then taken to the operating room where she was given general anesthesia. She was prepped and draped in the usual sterile fashion. Please see Dr. Vu's operative report for specifics of the procedure. I was present for the entire case from initial patient positioning through final wound closure. Assistance was provided in tissue retraction, hemostasis, trial implant placement, final implant placement, and final wound closure. The patient was taken to the recovery room in satisfactory condition. I attest to the content of the Intraoperative Record and any orders documented therein. Any exceptions are noted below.
--- NOTE | 2023-11-27 13:46 | Orthopedic Progress Note ---
Date of Service November 27, 2023 Orthopedic Progress Note Postop x-rays look excellent right shoulder replacement. Continue to progress well with her recovery.
[2023-11-27] MEDS: fentaNYL citrate PF 100 MCG/2 ML VIAL IV PRN (13:50)
--- NOTE | 2023-11-27 14:26 | XRay Report ---
XR shoulder RT min 2V routine HISTORY: 83 years-old Female S/P R TSA right shoulder arthroplasty COMPARISON: Chest radiograph 11/12/2023 TECHNIQUE: 2 views of the right shoulder FINDINGS: Right shoulder arthroplasty with overlying skin leigh. Postoperative soft tissue swelling. No acute fracture or unexpected opaque foreign bodies. Resection of the distal right clavicle. Left neck surg ical clips. IMPRESSION: Right shoulder arthroplasty with expected postoperative changes. ACT 112: Negative or not required by law. The above report was generated using voice recognition software. It may contain grammatical, syntax o r spelling errors. Electronically signed by: Trey Hernandez M.D. 11/27/2023 2:25 PM
--- OUTSIDE RECORDS SUMMARY | 2023-11-27 14:45 | External Medical Summary | Continuity of Care Document ---
Author Name Unknown Organization [facility] [id number] [place] [address] [phone] Care Team Providers Care Boat Officer Name Role Phone Kell Jorge Primary Care Physician [phone] Encounter [facility] [id number] Date(s): 11/19/23 - 11/19/23 [facility] 0 [facility] [place] [facility] [address] [facility], [facility] [address] [place] [address] [phone] Encounter Diagnosis Body mass index [BMI] 29.0-29.9, adult(Discharge Diagnosis) - 11/19/23 Encounter for pre-operative examination(Discharge Diagnosis) - 11/19/23 Arthritis of right glenohumeral joint(Discharge Diagnosis) - 11/19/23 Discharge Disposition: Home or Self Care Attending Physician: CED Saldaña Kimberly A Allergies, Adverse Reactions, Alerts Substance Reaction Severity Status enoxaparin Nausea and vomiting Active anastrozole Drug-induced nausea and vomiting Active exemestane muscle spasms Active Ipratropium [place] sore throat , nose bleeds Active Arimidex muscle spasms Active Assessment and Plan Extracted from: Title:Office Visit Note Author:CED Saldaña Kim berly A Date:11/19/23 1.Encounter for pre-operat fco examination She presents today for her preoperative history and physical examination for a right total shoulder arthroplasty with Dr. Vu on 11/27/2023t [facility].Has struggled with persistent right shoulder pain for at least 2 years but states is has been worseningrecently. Has failed extensive list of conservative treatments including injections and PTover time. She denies any traumatic origin to her pain. 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 PMH is extensive but currently stable, including right breast cancer and thyroid cancer in remote past, HTN and CPAP. She has already been evaluated by anesthesia with blood work and EKG completed. All testing completed was unremarkable Requested by:Dr. Vu Planned surgery: (R) total shoulder arthroplasty [X]Intermediate risk(intraperitoneal, intrathoracic, CEA, head/ neck, ortho, urologic, prostate) Exercise tolerance: 3-6 METS [Moderate]:fast walk; stationery bike; fast dance; rake leaves; garden; push mowing Bleeding tendency:Denies h/o bleeding disorders or blood clots Substance use:None Prior anesthesia:No history of anesthesia complications with prior surgeries Revised Cardiac Risk Index: Score=0 or 1 [0] Higher Risk Surgery (intraperitoneal, intrathoracic, supra-inguinal vascular) [0] Ischemic Heart Disease [0] History of CHF [0] History of cerebrovascular disease [0] Insulin therapy for DM [0] Pre-op Cr >2 Total Score=0 Patient is considered to be medically optimized for her upcoming (R) shoulder arthroplasty with Dr. Vu on 11/27/23. 2.Arthritis of right glenohumeral joint Please see #1 Immunizations Given and Recorded Vaccine Date Status Refusal Reason influenza virus vaccine, inactivated 05/21/23 Give n influenza virus vaccine, inactivated 07/02/22 Give n influenza virus vaccine, inactivated 05/31/21 Give n pneumococcal 23-valent vaccine 08/23/20 Given Medications aMILoride 5 mg oral tablet Start: 07/29/23 11:39:00 EST, 2 tab, PO, Daily, Disp# 180 tab, Refills: 0, Pharmacy: [id number] Start Date: 07/29/23 Status: Ordered Centrum Silver oral tablet Start: 08/28/16 14:31:00, 1 tab, PO, Daily Start Date: 08/28/16 Status: Ordered Flovent HFA 220 mcg/inh MDI Start: 03/15/23 19:22:00 EDT, 1 puff, inhaled, bid, Disp# 1 each, Refills: 1, Pharmacy: [id number] Start Date: 03/15/23 Stop Date: 05/14/23 Status: Ordered levothyroxine 100 mcg (0.1 mg) oral tablet Start: 10/28/23 12:12:00 EST, 1 tab, PO, Daily, Disp# 90 tab, Refills: 0, Pharmacy: [id number] Start Date: 10/28/23 Status: Ordered losartan 100 mg oral tablet Start: 06/28/23 7:53:00 EDT, 1 tab, PO, Daily, Disp# 90 tab, Refills: 1, Pharmacy: [id number] Start Date: 06/28/23 Status: Ordered ProAir HFA 90 mcg/inh inhalation aerosol Start: 01/18/23 16:35:00 EDT, 2 puff, inhaled, qid, Disp# 1 each, Note to Pharmacy: or equivalent medicine at a cheaper nair, PRN: as needed for wheezing and cough, Pharmacy: [id number] Start Date: 01/18/23 Status: Ordered tamoxifen 20 mg oral tablet Start: 03/08/17 11:29:00, 1 tab, PO, Daily, Disp# 30 tab, will get refill from Oncology from now on, Pharmacy: [id number] Start Date: 03/08/17 Stop Date: 04/07/17 Status: Ordered Vitamin D3 2000 intl units oral capsule Start: 08/28/16 14:30:00 Start Date: 08/28/16 Status: Ordered Voltaren 1% topical gel Start: 03/22/23 10:19:00 EDT, 2 g =, topical, qid, Disp# 100 g, use on R shoulder painful spot, PRN: Pain, Pharmacy: [id number] Start Date: 03/22/23 Status: Ordered Xyzal 5 mg oral tablet Start: 11/15/16 13:57:00, 1 tab, PO, Daily, PRN: allergy symptoms Start Date: 11/15/16 Status: Ordered Mental Status 11/19/23 Barriers to Learning one year None evide nt Mandatory Health Literacy Documentation Yes Health Literacy Communication Barriers N ever Primary Language Venezuelan Problem List Condition Confirmation Course Effective Dates Status Health Status Informant Pain in the abdomen Confirmed Active Allergies Confirmed Active Arthritis Confirmed Active Arthritis of right glenohumeral joint Confirmed Active Shoulder arthritis Confirmed Active Lumbar facet arthropathy Confirmed Active Pseudogout Confirmed Active Pain of cervical facet joint Confirmed Active Chronic cholecystitis Confirmed Active Diarrhea Confirmed Active Chronic kidney disease (CKD) Confirmed Active Proximal phalanx fracture of finger Confirmed Active Renal cyst Confirmed Active Dentures complicating chewing Confirmed Active AC joint arthropathy Confirmed Active Biceps tendinopathy Confirmed Active Diverticulosis Confirmed Active Enthesopathy of foot 1 Confirmed Active Family hx of colon cancer Confirmed Active Family hx of colon cancer Confirmed Active Female stress incontinence Confirmed Active Right foot pain Confirmed Active Finger fracture Confirmed Active Tendinopathy of right gluteus medius Confirmed Active Hearing loss Confirmed Active History of sleep apnea 2 Confirmed 04/29/10 Active Hx of breast cancer Confirmed Active Hx of thyroid cancer Confirmed Active History of palpitations Confirmed Active Hyperlipidemia Confirmed Active Asthma Confirmed Active HTN (hypertension) Confirmed Active Hypocalcemia Confirmed Active Hypomagnesemia Confirmed Active Hypothyroidism Confirmed Active Urine frequency Confirmed Active Rotator cuff tendinitis Confirmed Active Sacroiliitis Confirmed Active Abdominal wall strain Confirmed Active Irregular heart beats Confirmed Active Right lumbar radiculopathy Confirmed Active Spondylolisthesis of lumbar region Confirmed Active Neck pain Confirmed Active Osteopenia Confirmed Active Left wrist pain Confirmed Active Encounter for pre-operative examination Confirmed Active Prolonged QT interval Confirmed Active RUQ pain Confirmed Active Lumbar scoliosis Confirmed Active Right shoulder pain Confirmed Active Sleep apnea Confirmed Active Spondylolisthesis Confirmed Active Spondylolisthesis, lumbosacral region Confirmed Active Hip flexor tendonitis Confirmed Active PVC (premature ventricular contraction) Confirmed Active Vitamin D deficiency Confirmed Active Restless leg syndrome Confirmed Active 1left 2Dr. Solic - Could discontinue CPAP. However, if she is inclined to use it, it may help to prevent the few apneic episodes or hypopneic episdoes which occur. However, since her apnea hypopnea index isless than five, she is now considered within the normal range. Diagnosis Diagnosis Type Effective Dates Health Status Clinical Service Informant Body mass index [BMI] 29.0-29.9, adult Discharge Diagnosis 11/19/23 Non-Specified Arthritis of right glenohumeral joint Discharge Diagnosis 11/19/23 Encounter for pre-operative examination Discharge Diagnosis 11/19/23 Procedures Procedure Date Related Diagnosis Body Site Status Mammogram 1 02/05/23 Completed Chest x-ray 2 11/07/22 Completed Arthroscopy of shoulder 3 09/04/22 Completed Pathology report 4 09/04/22 Comple cristina Ultrasound of the mesenteric vasculature 5 05/16/22 Completed Mammogram - localization 6 01/31/22 Completed Diagnostic colonoscopy 7 01/16/22 Completed KUB X-ray 8 11/08/21 Completed Small bowel series--follow through 9 10/25/[address] angiogram of thorax, abdo men and pelvis with contrast 10 10/19/[address] of abdomen and pelvis wit hout contrast 11 10/11/21 Completed Plain X-ray of right humerus 12 03/01/21 Completed Bone density scan 13 11/01/20 Comp leted Chest x-ray 14 06/15/20 Completed Eye examination 15 11/11/19 Comple cristina Chest X-ray 2V PA/lateral 16 07/14/19 Completed Mammogram 17 02/11/19 Completed Nerve blocks in cervical region 12/31/18 Completed Denervation of joint 18 12/04/18 C ompleted Diagnostic mammogram 19 02/05/18 C ompleted Ultrasound scan of lower abd omen 20, 21 01/03/18 Completed Ultrasound--RLQ 22 11/29/17 Comple cristina X-ray of thoracic spine 23 11/29/17 Completed X-ray of thoracic spine 24 11/29/17 Completed Colonoscopy 25, 26 11/20/17 Comple cristina MRCP - Magnetic resonance cholangiopancreatography 27 11/07/17 Comp leted Laparoscopic cholecystectomy 04/01/17 Completed US EXAM ABDOM COMPLETE 28 03/23/17 Completed Mammogram 29, 30 02/04/17 Complete d DXA BONE DENSITY STUDY 31, 32, 33 12/25/16 Completed Echocardiogram 34 08/06/[address] 35 09/06/15 Completed APPENDECTOMY Completed EXCISION OF UVULA Complet ed History of nasal sinus surgery Completed Holter monitor 36 Complet ed Hysterectomy 37 Completed Injection into joint 38 C ompleted Knee arthroplasty 39, 40 Completed Knee arthroplasty 41, 42 Completed Lumpectomy 43 Completed Thyroidectomy 44 Complete d Tonsillectomy Completed 1TECHNIQUE: Bilateral CC and MLO tomosynthesis images including synthesized 2D images (Intelligent 2D) were obtained. Current study was also evaluated with a Computer Aided Detection (CAD) system. COMPARISON: Comparison is made to exams dated: 01/31/2022 mammogram, 02/15/2020 mammogram, 02/11/2019 mammogram, 02/05/2018 mammogram, 02/04/2017 mammogram - [facility], and 02/16/2021 mammogram. BREAST COMPOSITION: There are scattered areas of fibroglandular density. FINDINGS: Expected postoperative architectural distortion and surgical clips in the 9:00 far posterior right breast. There are benign coarse calcifications and mild arterial calcification in the breasts. No suspicious mass, unexpected architectural distortion or cluster of microcalcifications is seen. IMPRESSION: ACR BI-RADS CATEGORY 1: NEGATIVE There is no mammographic evidence of malignancy. A 1 year screening mammogram is recommended.(02/06/2024) Clinical follow-up is recommended for the nonfocal right mastalgia. 2Impression: No acute process 3Right shoulder arthroscopy, Bicep Tenotomy scope, extensive debridtment, distal clavicle excision, subacromial decompression 4FINAL DIAGNOSIS Shoulder, "right distal clavicle" (distal clavicle excision and subacromial decompression): - Articular bone with thinning of the overlying cartilage, focal fibrillation of the overlying cartilage and focal eburnation consistent with degenerative joint disease is seen. - Trilineage hematopoiesis is noted within the bone marrow. - The histologic section from the synovium confirms the presence of pseudogout and a slide preparation in search of crystal deposition disease reveals weakly birefringent, rhomboidshaped crystals consistent with calcium pyrophosphate deposition disease, AKA pseudogout. - The clinical history of right shoulder rotator cuff tendinitis with impingement syndrome and AC joint arthritis is noted. at 1405. 5Impression: Normal sonographic examination of the mesenteric vasculature. No change from the 10/19/21 CT angiogram. 6Stable mammographic appearance of both breasts including postsurgical and posttreatment changes in the right breast, without mammographic evidence of malignancy. No targeted sonographic abnormality, suspicious mass or drainable fluid collection seen in the right lower inner quadrant in the areas of tenderness and hardness pointed out by the patient. Continued clinical follow up is therefore recommended as biopsy of a clinically suspicious mass should not be precluded by negative imaging. Also recommend routine screening mammogram in 1 year (January 2023). 7Examined portion of ileum normal- biopsied. Entire examined colon noramal- biopsied. Nonbleeding internal hemorrhoids. Deverticulosis in the sigmoid colon, in the descending colon and in the transverse colon. 8Nonobstructive bowel gas pattern. 9Unremarkable small bowel foolw-through. No evidence for a small bowel obstruction. Normal mucosal pattern 101) No acute infectious or inflammatory findings are identified in the abdomen or pelvis. 2) There is mild stenosis at the orgin of the largest right renal artery 3) Otherwise unremarkable CT angiogram of the abdominal aorta and its major branches 4) Advanced colonic diverticulosis without CT evidence of acute diverticulitis. 5) Additional findings as above. 111. No acute infectious or inflammatory findings are seen in the abdomen or pelvis. 2. Advanced colonic diverticulosis without CT evidence of acute diverticulitis. 3. Additional findings as above. 12No acute fracture 1310 year Probability of fracture: Major osteoporotic- 12.5% Hip- 2.8% 14No active disease in chest. 15impression bilateral cataract 16Impression: Minimal parenchymal infiltrate left base. 17No suspicious mammographic or sonographic abnormality at the sites of the tender right breast lumpspointed out by patient. No malignancy. Recommend clinical f/u for tender right breast lumps. Routine f/u in one year. 18Right sacroiliac joint cooled denervation 19Stable bilateral mammograms, including post treatment changes in the right breast, without mammographic evidence of malignancy. Recommend bilateral mammography in 1 year and consider remaining a diagnostic patient, given the personal history of right breast cancer, in case any additional mammographic views and/or ultrasound may be needed. 201. No acute sonographic abnormality is identified in the right lower quadrant. 2. The appendix was not visualized and is reported surgically absent. 21Negative study 221) No acute sonographic abnormality is identified in the right lower quadrant. 2) The appendix was not visualized and is reported surgically absent. 231) There is no radiographic evidence of fracture or malalignment infvolving the thoracic spine. 2) Osteopenia and spondylotic change as above. 241. There is no radiographic evidence of fracture or malaligment involving the thoracic spine. 2. Osteopenia and spondylotic change as above. 25Numerous diverticula in the sigmoid & descending colon and a few transverse nohemy diverticula are present, without evidence of diverticulitis which makes it very, very difficult to safely advancethe scope around that area. If she does need a colonoscopy in the future I would certainly try to start with the barium enema first. 26Ileum normal. Repeat 5 years. 27Normal study post cholecystectomy 28No significant abnormality identified within the right upper quadrant. 29There is no mammographic evidence of malignancy. A one year screening is recommended. 30no evidence of malignancy. post lumpectomy changes in the RIGHT are noted. There is associated architectural distortion and surgical scarring. No other areas of architectural distortion which are suspicious in appearance. 31nomral classification in the femoral neck, total hip and lumbar spine. 32Femoral neck is osteopenic. AP spine & total hip is normal. repeat 2-5 year depending on initiation of therapy & compliance. 33AP spine is normal. Z-score of 0.5., considered WNL for age. 34Ejection fraction = 60-65%. No regional wall motion abnormalities noted. Right ventricular systolicpressure is elevated at 40-50mmHg. 35Coronoary artery calcification. Cholelithiasis. Mild incrased interstitial makrings in the periphery of the right middle lobe and anterior segment of the right lower lobe are presumably secondary to the effects of radiation therapy as described above. 36Sinus rhythm. Average hear rate is 92bpm. Minimum heart rate is 71bpm. Maximum heart rate is 133bpm. No significant pauses or AV block noted. Normal MN, QRS, QT intervals at varying heart rates. Maximum R-R interval is 0.85 seconds. Isolated APDs and coulets noted. Isolated nonsustained episodes ofatrial tachycardia, up to 12 beats in duration. frequest VPDs and occasional couplets noted. No complet ventricular arrhythmia. [id number] 38Bilateral C4-5 Facet joint injection 39left [id number] 42Right [id number] - right breast [id number] - [place] [facility] Vital Signs Most recent to oldest [Reference Range]: 1 Height 158 cm (11/19/23 9:22 AM) Patient Weight 72.7 kg (11/19/23 9:22 AM) Body Mass Index 29.12 kg/m2 (11/19/23 9:22 AM) Heart Rate 62 bpm (11/19/23 9:22 AM) Respiratory Rate 18 br/min (11/19/23 9:22 AM) Blood Pressure 128/82mmHg (11/19/23 9:22 AM) Cuff Pulse Pressure 46 mmHg (11/19/23 9:22 AM) Social History Social History Type Response Smoking Status Never smoked cigaret nhi Sex Female FCM Outpt Note * CED Saldaña, Kavitha Lorenzo: PERFORM Event Display: FCM Outpt Note Authored Date: [id number] Chief Complaint physcial for sx. History of Present Illness PRE-OPERATIVE EVALUTION She presents today for her preoperative history and physical examination for a right total shoulderarthroplasty with Dr. Vu on 11/27/2023t [facility].Has struggled with persistent right shoulder pain for at least 2 years but states is has been worseningrecently. Has failed extensive list of conservative treatments including injections and PTover time. She denies any traumatic origin to her pain. 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 PMH is extensive but currently stable, including right breast cancer and thyroid cancer in remote past, HTN and CPAP. She has already been evaluated by anesthesia with bloodwork and EKG completed. Requested by:Dr. Vu Planned surgery: (R) total shoulder arthroplasty [X]Intermediate risk(intraperitoneal, intrathoracic, CEA, head/ neck, ortho, urologic, prostate) Exercise tolerance: 3-6 METS [Moderate]:fast walk; stationery bike; fast dance; rake leaves; garden; push mowing Bleeding tendency:Denies h/o bleeding disorders or blood clots Substance use:None Prior anesthesia:No history of anesthesia complications with prior surgeries Revised Cardiac Risk Index: Score=0 or 1 [0] Higher Risk Surgery (intraperitoneal, intrathoracic, supra-inguinal vascular) [0] Ischemic Heart Disease [0] History of CHF [0] History of cerebrovascular disease [0] Insulin therapy for DM [0] Pre-op Cr >2 Total Score=0 Review of Systems ROS per HPI Physical Exam Vitals & Measurements HR:62(Monitored) RR:18 BP:128/82 SpO2:94% HT:158cm WT:72.700kg(Dosing) WT:72.7kg BMI:29.12 PHQ2 Data(Data Documented on:11/19/2023 09:21) Emotional health assessment NEGATIVE General: Alert and oriented,No acute distress,Very pleasant Well groomed Eye: Pupils are equal, round and reactive to light,Extraocular movements are intact,Normal conjunctiva. HENT: Normocephalic, Neck: Supple,No lymphadenopathy. Respiratory: Lungs are clear to auscultation,Respirations are non- labored,Breath sounds are equal,Symmetrical chest wall expansion. Cardiovascular: Normal rate,Regular rhythm,No murmur,No gallop,No edema. Abdomen: Normoactive BS x 4. No R/G/R. No organomegaly. Soft, nontender, nondistended Lymphatics: No submandibular, anterior or posterior cervical adenopathy palpable. Musculoskeletal:No functional arthritic changes FROM Normal gait. Integumentary: Warm,[place]. No rashes or changing lesions. Neurologic: Alert,Oriented,Cranial Nerves II-XII are grossly intact. Cognition and Speech: Oriented,Speech clear and coherent,Functional cognition intact. Psychiatric: Cooperative,Appropriate mood & affect,Normal judgment. Assessment/Plan 1.Encounter for pre-operative examination She presents today for her preoperative history and physical examination for a right total shoulderarthroplasty with Dr. Vu on 11/27/2023t [facility].Has struggled with persistent right shoulder pain for at least 2 years but states is has been worseningrecently. Has failed extensive list of conservative treatments including injections and PTover time. She denies any traumatic origin to her pain. 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 PMH is extensive but currently stable, including right breast cancer and thyroid cancer in remote past, HTN and CPAP. She has already been evaluated by anesthesia with blood work and EKG completed. All testing completed was unremarkable Requested by:Dr. Vu Planned surgery: (R) total shoulder arthroplasty [X]Intermediate risk(intraperitoneal, intrathoracic, CEA, head/ neck, ortho, urologic, prostate) Exercise tolerance: 3-6 METS [Moderate]:fast walk; stationery bike; fast dance; rake leaves; garden; push mowing Bleeding tendency:Denies h/o bleeding disorders or blood clots Substance use:None Prior anesthesia:No history of anesthesia complications with prior surgeries Revised Cardiac Risk Index: Score=0 or 1 [0] Higher Risk Surgery (intraperitoneal, intrathoracic, supra-inguinal vascular) [0] Ischemic Heart Disease [0] History of CHF [0] History of cerebrovascular disease [0] Insulin therapy for DM [0] Pre-op Cr >2 Total Score=0 Patient is considered to be medically optimized for her upcoming (R) shoulder arthroplasty with Dr. Vu on 11/27/23. 2.Arthritis of right glenohumeral joint Please see #1 Problem List/Past Medical History Ongoing Abdominal wall strain AC joint arthropathy Allergies Arthritis Arthritis of right glenohumeral joint Asthma Biceps tendinopathy Chronic cholecystitis Chronic kidney disease (CKD) Dentures complicating chewing Diarrhea Diverticulosis Encounter for pre-operative examination Enthesopathy of foot Family hx of colon cancer Family hx of colon cancer Female stress incontinence Finger fracture Hearing loss Hip flexor tendonitis History of palpitations History of sleep apnea HTN (hypertension) Hx of breast cancer Hx of thyroid cancer Hyperlipidemia Hypocalcemia Hypomagnesemia Hypothyroidism Irregular heart beats Left wrist pain Lumbar facet arthropathy Lumbar scoliosis Neck pain Osteopenia Pain in the abdomen Pain of cervical facet joint Prolonged QT interval Proximal phalanx fracture of finger Pseudogout PVC (premature ventricular contraction) Renal cyst Restless leg syndrome Right foot pain Right lumbar radiculopathy Right shoulder pain Rotator cuff tendinitis RUQ pain Sacroiliitis Shoulder arthritis Sleep apnea Spondylolisthesis Spondylolisthesis of lumbar region Spondylolisthesis, lumbosacral region Tendinopathy of right gluteus medius Urine frequency Vitamin D deficiency Historical Breast cancer Procedure/Surgical History Mammogram| Service Date: 02/05/2023hest x-ray| Service Date: 11/07/2022athology report| Service Date: 09/04/2022rthroscopy of shoulder| Service Date: 09/04/2022Ultrasound of the mesenteric vasculature| Service Date: 05/16/2022Mammogram - localization| Service Date: 01/31/2022 Diagnostic colonoscopy| Service Date: 01/16/2022KUB X-ray| Service Date: 11/08/2021mall bowel series--follow through| Service Date: 10/25/2021T angiogram of thorax, abdomen and pelvis withcontrast| Service Date: 10/19/2021T of abdomen and pelvis without contrast| Service Date: lain X-ray of right humerus| Service Date: 03/01/2021one density scan| Service Date: 03/09/2021Chest x-ray| Service Date: 06/15/2020Eye examination| Service Date: 11/11/2019ChestX-ray 2V PA/lateral| Service Date: 07/14/2019Mammogram| Service Date: 02/11/2019Nerve blocks in cervical region| Service Date: 12/31/2018Denervation of joint| Service Date: 12/04/2018Diagnostic mammogram| Service Date: 02/05/2018Ultrasound scan of lower abdomen| Service Date: 01/03/2018Ultrasound--RLQ| Service Date: 11/29/2017X-ray of thoracic spine| Service Date: 11/29/2017X-ray of thoracic spine| Service Date: 11/29/2017Colonoscopy| Service Date: 11/20/2017MRCP -Magnetic resonance cholangiopancreatography| Service Date: 11/07/2017Laparoscopic cholecystectomy| Service Date: 04/01/2017US EXAM ABDOM COMPLETE| Service Date: 03/23/2017Mammogram| Service Date: 02/04/2017DXA BONE DENSITY STUDY| Service Date: 12/25/2016Echocardiogram| Service Date: 08/06/2016Chest CT| Service Date: 09/06/2015Holter monitorEXCISION OF UVULAHistory of nasal sinus surgeryLumpectomyTonsillectomyKnee arthroplastyKnee arthroplastyHysterectomyThyroidectomyAPPENDECTOMYInjection into joint Medications albuterol(ProAir HFA 90 mcg/inh inhalation aerosol), 2 puff, inhaled, qid, PRN aMILoride(aMILoride 5 mg oral tablet), 2 tab, PO, Daily cholecalciferol(Vitamin D3 2000 intl units oral capsule) diclofenac topical(Voltaren 1% topical gel), 2 g, topical, qid, PRN fluticasone(Flovent HFA 220 mcg/inh MDI), 1 puff, inhaled, bid, 1 refills levocetirizine(Xyzal 5 mg oral tablet), 5 mg= 1 tab, PO, Daily, PRN levothyroxine(levothyroxine 100 mcg (0.1 mg) oral tablet), 1 tab, PO, Daily losartan(losartan 100 mg oral tablet), 1 tab, PO, Daily multivitamin with minerals(Centrum Silver oral tablet), 1 tab, PO, Daily taMOXIfen(tamoxifen 20 mg oral tablet), 20 mg= 1 tab, PO, Daily Allergies Arimidexmuscle spasms Ipratropium Bromidesore throat , nose bleeds anastrozoleDrug-induced nausea and vomiting enoxaparinNausea and vomiting exemestanemuscle spasms Social History Smoking Status Never smoked cigarettes Alcohol - No Risk Tobacco - Denies Tobacco Use Family History Brain cancer......: Father. Breast cancer: Sister, MGM and Paternal Uncle. Cancer: Father and Unknown. Cancer of colon: Mother, Brother and Unknown. Coronary artery disease: MGM. Heart attack: Sister, Brother and MGF. Heart disease: Brother. Lung cancer......: Sister. Malignant tumor of lung: Sister. Ovarian cancer......: Mother and PGM. Type II diabetes mellitus: Sister. Health Status Family Member(s) Immunizations Vaccine Date Status influenza virus vaccine, inactivated 05/21/2023 Given influenza virus vaccine, inactivated 07/02/2022 Given influenza virus vaccine, inactivated 05/31/2021 Given pneumococcal 23-valent vaccine 08/23/2020 Given Recommendations Health Maintenance Pending(in the next year) OverDue Medicare Annual Wellness Visit due08/23/21and every 1year Due Adult COVID-19 Vaccination due11/19/23Unknown Frequency Adult Social Determinants of Health Screening due11/19/23Unknown Frequency Adult Tdap/Td Vaccine due11/19/23Unknown Frequency Shingles Vaccine due11/19/23One-time only Due In Future Adult Influenza Vaccine not due until02/23/24and every 1year Satisfied(in the past 1 year) Satisfied Adult Influenza Vaccine on05/21/23.Satisfied by JUAN Saldaña, Kavitha Lorenzo Body Mass Index on11/19/23.Satisfied by LAMBERTO Mauricio Kyla Breast Cancer Screening on02/05/23.Satisfied by LAMBERTO James Rachel Lipid Screening on05/21/23.Satisfied by Contributor_system, Adjacent Applications Electronic Signature on File Electronically Reviewed/Signed by: Kavitha Saldaña PA-C Author Signature Dt/Tm:11/19/2023 12:54 PM Department of Family Medicine [facility] Patient Care team information Care Team Personnel Name: MD Jorge Dongsheng Position: Physician - Family Med Member Role: Primary Care Provider Address: Address: [facility] Care Team Related Persons Name: EMIR YEPEZ Address: home [address] [facility] [phone] Name: ISSA YEPEZ Address: home [address] [place] [phone]
[2023-11-27] MEDS ORDERED: NALOXONE HCL 0.4 MG/1 ML VIAL/CARP IV PRN (15:56)
[2023-11-27] MEDS ORDERED: ALUMINUM/MAGNESIUM SUSP 30 ML UDC PO PRN (15:56)
[2023-11-27] MEDS ORDERED: oxyCODONE HCL IR 5 MG TAB (IMMEDIATE RELEASE) PO PRN (15:56)
[2023-11-27] MEDS ORDERED: diphenhydrAMINE 50 MG/ML VIAL IV PRN (15:56)
[2023-11-27] MEDS ORDERED: MAGNESIUM HYDROXIDE SUSP 30 ML UDC PO PRN (15:56)
[2023-11-27] MEDS ORDERED: HYDROmorphone INJ 0.5 MG/0.5 ML SYR IV PRN (15:56)
[2023-11-27] MEDS ORDERED: bisacodyL 10 MG SUPP PR PRN (15:56)
[2023-11-27] MEDS ORDERED: METOCLOPRAMIDE HCL INJ 5 MG/ML 2 ML VIAL IV PRN (15:56)
--- NOTE | 2023-11-27 16:01 | Anesthesiology Progress Note ---
Date of Service November 27, 2023 Anesthesia Post Procedure Vital Signs Vital Signs: Temp Pulse Resp BP Pulse Ox O2 Del Method O2 Flow Rate 11/27/23 15:30 81 20 152/98 H 97 Nasal Cannula 2 11/27/23 15:00 75 16 151/88 H 95 Nasal Cannula 2 11/27/23 14:25 36.4 C L 80 18 165/96 H 93 Nasal Cannula 2 11/27/23 14:15 76 14 150/84 H 97 Oxymask 2 11/27/23 14:05 72 20 177/98 H 98 Oxymask 2 11/27/23 13:55 75 14 177/101 H 98 Oxymask 3 11/27/23 13:45 90 18 173/93 H 98 Oxymask 3 11/27/23 13:35 77 20 177/98 H 99 Oxymask 6 11/27/23 13:26 36.4 C L 86 16 171/77 H 99 Oxymask 8 11/27/23 09:27 36.6 C 88 18 152/88 H 98 Room Air Pain Intensity Right Shoulder: Pain Intensity: 4 Right Axilla: Pain Intensity: 2 Transfer of Care Handoff Completed per policy Notes Mental Status: alert / awake / arousable and participated in evaluation Patient Amnestic to Procedure: Yes Nausea / Vomiting: adequately controlled Pain: adequately controlled Airway Patency, RR, SpO2: stable & adequate BP & HR: stable & adequate Hydration State: stable & adequate Anesthetic Complications: no major complications apparent and Pt Satisfied with anesthetic care
[2023-11-27] MEDS: SODIUM CHLORIDE 0.9% 1,000 ML IV SCH (16:17)
[2023-11-27] MEDS ORDERED: IPRATROPIUM BROMIDE NASAL SPRAY 0.06% 15ML NAE PRN (16:28)
[2023-11-27] MEDS ORDERED: CETIRIZINE HCL 10 MG TABLET PO PRN (16:31)
[2023-11-27] MEDS: FERROUS GLUCONATE 324 MG TAB PO SCH (16:48)
[2023-11-27] MEDS: KETOROLAC TROMETHAMINE 15 MG/ML VIAL IV SCH (16:48)
[2023-11-27] MEDS: ASCORBIC ACID 500 MG TAB PO SCH (16:48)
[2023-11-27] MEDS: PRAMIPEXOLE DIHYDROCHLO 0.5 MG TAB PO SCH (20:38)
[2023-11-27] MEDS: DOCUSATE SODIUM 100 MG CAP PO SCH (20:38)
[2023-11-27] MEDS: ACETAMINOPHEN 500 MG TAB PO SCH (20:41)
[2023-11-27] MEDS: SENNA 8.6 MG TAB PO SCH (20:43)
[2023-11-28] MEDS: LEVOTHYROXINE SODIUM 100 MCG TABLET PO SCH (04:41)
--- NOTE | 2023-11-28 06:18 | Orthopedic Progress Note ---
Date of Service November 28, 2023 Assessment & Plan Admission and Anticipated Discharge Date Admission Date: November 27, 2023 Orthopedic Progress Note Continue plans to go home. Vital signs stable afebrile. Neurovascular check limited by block. Change dressing later today at PT OT. Home today.
[2023-11-28 06:25] LABS: Basophils # (auto) 0.02 K/uL (0.00-0.20); Basophils % (auto) 0.2 %; Hematocrit (blood only) 35.4 % (37.0-47.0); Hemoglobin 11.9 g/dl (12.0-16.0); Immature Granulocytes # (auto) 0.06 K/uL (0.01-0.20); Immature Granulocytes % (auto) 0.5 %; Lymphocytes # (auto) 0.62 K/uL (1.20-3.40); Lymphocytes % (auto) 4.9 %; Mean Corpuscular Hemoglobin 29.3 pg (25.0-34.0); Mean Corpuscular Hgb Conc 33.6 g/dL (32.0-36.0); Mean Corpuscular Volume 87.2 fL (80.0-100.0); Mean Platelet Volume 9.4 fL (9.4-12.4); Monocytes % (auto) 4.7 %; Neutrophils # (auto) 11.39 K/uL (1.40-6.50); Neutrophils % (auto) 89.7 %; Platelet Count 230 K/uL (130-400); RDW Standard Deviation 41.1 fL (36.4-46.3); Red Blood Count 4.06 M/uL (4.20-5.40); White Blood Count 12.69 K/ul (4.8-10.8)
[2023-11-28 06:40] LABS: Calcium 8.3 mg/dl (8.6-10.3); Creatinine Clr Calc Pharmacy 39.8 ml/min; Est GFR (African American) 60.3 ml/min; Est GFR (Non-African American) 52.1 ml/min; Potassium 4.3 mmol/L (3.5-5.1)
[2023-11-28] MEDS: aMILoride HCL 5 MG TAB PO SCH (08:15)
[2023-11-28] MEDS: TAMOXIFEN CITRATE 10 MG TABLET PO SCH (08:16)
[2023-11-28] MEDS: ASPIRIN 81 MG ECTAB PO SCH (08:17)
[2023-11-28] MEDS: dexAMETHasone 10 MG in SYRINGE 0 ML IV SCH (08:17)
[2023-11-28] MEDS: MULTIVITAMIN TAB PO SCH (08:17)
[2023-11-28] MEDS: LOSARTAN POTASSIUM 50 MG TAB PO SCH (08:18)
--- NOTE | 2023-11-28 09:20 | Orthopedic Progress Note ---
Date of Service November 28, 2023 Assessment & Plan (1) Status post replacement of right shoulder joint: Plan: The patient was educated regarding today's findings. Her postsurgical dressing was changed today by me. It can be changed as needed for soiling. Follow-up in physical therapy in our office tomorrow at 11 AM as scheduled. The patient states she will try to use just Tylenol for pain control. A small prescription of hydrocodone 5 mg was sent to her pharmacy. Importance of staying in the sling at all times was discussed. Avoid any active motion of the shoulder Ice and elevate frequently to reduce pain and swelling. Call the office with any other concerns. Admission and Anticipated Discharge Date Admission Date: November 27, 2023 Subjective This 83-year-old female is seen today in her room. She is 1 day status post right total shoulder arthroplasty. She states she is doing well. She has no pain. She states the motor function and sensation to her hand are just starting to return. She noticed some motion in her fingers around 5 AM. She feels ready to be discharged home. She denies any chest pain, shortness of breath, nausea, vomiting, or abdominal pain. No dizziness or lightheadedness. No other complaints. Review of Systems Review of Systems: Unchanged from yesterday. Physical Exam Physical Exam: General: Well-developed, well-nourished, elderly female, in no acute distress. Sitting up in bed. Alert and oriented. Skin: Warm and dry with fair turgor. No rashes. She does have extensive ecchymosis over her right upper arm. Postsurgical dressing is in place on the right shoulder. Upon removal, there is scant dried blood on the most inner dressings. [place] are intact. Wound edges are well-approximated. She has no active bleeding at this time. Minimal postoperative edema. Musculoskeletal: The patient has limited flexion of her fingers and thumb. Very little extension function to any of the digits. She cannot extend her wrist. No pain with passive flexion next and extension of the elbow. There is no active motion. Neurologic: There is gross sensation intact across her chest wall and back. There is absence of sensation across the deltoid, bicep, tricep, forearm, hand, and digits. Peripheral pulses are 2+. Capillary refill is equal for each of the fingers. Results & Data Vital Signs (Past 12 Hours) Vital Signs Temp Pulse Pulse Resp BP Pulse Ox O2 Del Method 11/28/23 07:23 36.7 C 73 15 120/75 96 Room Air 11/28/23 04:38 37 C 83 16 124/77 96 Room Air 11/27/23 23:38 36.8 C 74 18 109/64 96 Room Air Laboratory Results CBC obtained this morning shows a white count of 12.69. H&H of 11.9 and 35.4. Platelets 230,000. Normal sodium and potassium as well as CO2. Anion gap of 6. BUN of 19 with creatinine 1.00. Glucose 125.
== END 2023-11-28 11:10 | disposition home or self-care (01) ==
LOC: ASU 08:59 → 3E 08:59

== ENCOUNTER 2024-08-04 06:09 | Inpatient (IN) ==
--- NOTE | 2024-07-16 14:52 | PAT Medication Instructions ---
Medication Instructions Date of Service July 16, 2024 Home Medications cholecalciferol (vitamin D3) 50 mcg (2,000 unit) capsule (Vitamin D3) 2,000 unit PO QPM vitamin B complex 1 cap PO UD levothyroxine 100 mcg tablet (Synthroid) 100 mcg PO QAM Centrum Silver Women) 1 tab PO QPM levocetirizine 5 mg tablet 5 mg PO DAILY PRN Allergy Symptoms pramipexole 1 mg tablet 1 mg PO HS aspirin 81 mg capsule 81 mg PO QAM atorvastatin 80 mg tablet (Lipitor) 80 mg PO QAM celecoxib 200 mg capsule (Celebrex) 200 mg PO DAILY PRN Pain clopidogrel 75 mg tablet (Plavix) 75 mg PO QAM olmesartan 20 mg tablet 20 mg PO HS ASK your surgeon for instructions celecoxib 200 mg capsule (Celebrex) 200 mg PO DAILY PRN Pain ASK your prescriber and surgeon aspirin 81 mg capsule 81 mg PO QAM clopidogrel 75 mg tablet (Plavix) 75 mg PO QAM DO NOT take the morning of surgery vitamin B complex 1 cap PO UD levocetirizine 5 mg tablet 5 mg PO DAILY PRN Allergy Symptoms Take morning of surgery With a small sip of water, OTHERWISE NOTHING TO EAT OR DRINK AFTER MIDNIGHT: levothyroxine 100 mcg tablet (Synthroid) 100 mcg PO QAM atorvastatin 80 mg tablet (Lipitor) 80 mg PO QAM Take evening before surgery cholecalciferol (vitamin D3) 50 mcg (2,000 unit) capsule (Vitamin D3) 2,000 unit PO QPM Centrum Silver Women) 1 tab PO QPM levocetirizine 5 mg tablet 5 mg PO DAILY PRN Allergy Symptoms (if needed) pramipexole 1 mg tablet 1 mg PO HS olmesartan 20 mg tablet 20 mg PO HS Other Notes If you have any questions please call us at [phone] or [phone] or [phone] or [phone]
--- NOTE | 2024-07-21 13:05 | Anesthesiology Consultation ---
Date of Service July 21, 2024 Assessment & Plan (1) Encounter for pre-operative examination: - dyspnea on exertion with recent onset discussed in detail with Dr. Rice who advised patient to have a transthoracic echocardiogram prior to surgery. Surgeon's office made aware, Brittney advised [facility] does not have availability and patient is to have echo done through [facility]. Order placed per [facility] scheduling assistant and [facility] made aware. - potential difficult intubation: s/p neck radiation for thyroid cancer 1996. - cardiology office visit 04/28/24 [place]: "...stable from a cardiovascular standpoint. I agree with initiating olmesartan 10 Mg daily for her elevated blood pressure both at home and in the office today...Fortunately, her PVCs remain infrequent and well-tolerated..." Chart Review Chart Review: Pending: Refer to Additional Notes / Consult section and Patient seen in Pre Admission Testing Teaching & Discussion Pre-Anesthesia Teaching/Discussion Notes: Instructed NPO after midnight before surgery, except medications with 15 cc of water. Medication instructions provided according to the PAT guidelines. History Surgery Operation Date: 08/04/24 08:00 Proposed Procedures p Right Transcarotid Artery Revascularization - Jamie Ragsdale MD Height/Weight Height: 5 ft 2.25 in Weight: 68.6 kg Allergies Allergy/AdvReac Type Severity Reaction Status Date / Time anastrozole Allergy Severe Osteoporosis, Verified 07/16/24 09:23 muscle aches exemestane Allergy Severe Osteoporosis, Verified 07/16/24 09:23 muscle aches adhesive Allergy Intermediate Skin Verified 07/16/24 09:23 irritation (some tapes/bandaids) Medications Home Medications Medication Instructions Recorded Confirmed Last Taken cholecalciferol (vitamin D3) 50 2,000 unit PO QPM 07/25/20 07/16/24 11/26/23 17:30 mcg (2,000 unit) capsule (Vitamin D3) vitamin B complex 1 cap PO UD 01/11/22 07/16/24 11/25/23 levothyroxine 100 mcg tablet 100 mcg PO QAM 05/16/22 07/16/24 11/27/23 07:00 (Synthroid) [id number] 8 mg-folic 400 1 tab PO QPM 05/16/22 07/16/24 11/26/23 17:00 mcg-K 50 mcg-lutein 300 mcg tablet (Centrum Silver Women) levocetirizine 5 mg tablet 5 mg PO DAILY PRN Allergy Symptoms 11/07/23 07/16/24 11/26/23 21:00 pramipexole 1 mg tablet 1 mg PO HS 11/07/23 07/16/24 11/26/23 21:00 aspirin 81 mg capsule 81 mg PO QAM 07/16/24 07/16/24 Unknown atorvastatin 80 mg tablet (Lipitor) 80 mg PO QAM 07/16/24 07/16/24 Unknown celecoxib 200 mg capsule (Celebrex) 200 mg PO DAILY PRN Pain 07/16/24 07/16/24 Unknown clopidogrel 75 mg tablet (Plavix) 75 mg PO QAM 07/16/24 07/16/24 Unknown olmesartan 20 mg tablet 20 mg PO HS 07/16/24 07/16/24 Unknown Past Medical History Medical History (Updated 07/21/24 @ 14:50 by Genie Wyman PA-C) Asthma pt denies "not really, I did years ago" no inhalers Carotid stenosis Chronic hoarseness Chronic nasal discharge Chronic post-nasal drip (chronic/intermittent sore throat r/t post-nasal drip) CKD (chronic kidney disease) Per records Hearing deficit B/L hearing aids History of thyroid cancer 1996- s/p radioactive iodine/thyroidectomy HX: breast cancer Right, 2013- s/p xrt/chemo/lumpectomy-right arm restriction Hyperlipidemia Hypertension controlled, stable per pt Hypothyroidism (acquired) Limb alert care status right arm restriction Neck mass resolved per pt PVC (premature ventricular contraction) Follows with Dr Tierney, no current/recent issues Restless leg syndrome Sleep apnea "Mild"- s/p UPPP Has not used device since recalled Fall 2020 (has not received information regarding new device) Patient denies h/o stroke, seizures, heart attack, heart failure, DM, blood clots/DVTs or blood transfusions. Exercise / Class Metabolic Activity II 4-5 Yardwork/Stairs/Walk up hill (shortness of breath with one flight of stairs ongoing over the past month, denies change or worsening-states surgeon is aware-denies chest discomfort) Past Family History Family History Mother Family history of reaction to anesthesia Slow to wake Sister Family history of reaction to anesthesia Sister had reaction to medications used with surgery but does not have further details to provide/unknown reaction. Denies family or personal hx of MH or pseudocholinesterase deficiency. Hypertension Stroke Sister Family history of diabetes mellitus Grandfather (Maternal) Family hx of colon cancer Brother Family hx of colon cancer Hypertension Mother Family hx of colon cancer Grandfather Hypertension Son Asthma Other FHx: brain cancer FHx: leukemia FHx: lung cancer Heart disease Past Surgical History Surgical History History of appendectomy History of breast biopsy History of cataract surgery R/L History of cholecystectomy History of colonoscopy History of esophagogastroduodenoscopy (EGD) History of knee replacement R/L History of lumpectomy of right breast History of prosthetic unicompartmental arthroplasty of left knee History of revision of total replacement of left knee joint x2 History of revision of total replacement of right knee joint History of right shoulder replacement History of sinus surgery History of surgery Right sacroiliac joint cooled denervation History of thyroidectomy, total History of tonsillectomy and adenoidectomy History of tooth extraction History of total abdominal hysterectomy and bilateral salpingo-oophorectomy History of uvulopalatopharyngoplasty Hx of arthroscopy of shoulder Right Shoulder Arthroscopy, Subacromial Decompression, Distal Clavicle Excision (09/04/22): Grade 2 view, ETT 7.0 + regional at [facility] Status post biopsy of thyroid gland Past Anesthesia History No Hx of Anesthesia Complications and Other (see above regarding family history) History of PONV No Hx of PONV and No Hx of Motion Sickness Social History Smoking Status: Never smoker Do You Dip or Chew Tobacco: No Hx Alcohol Use: Yes Alcohol type: wine alcohol intake frequency: a few times a month Hx Substance Use: No substance use type: does not use Review of Systems Patient denies chest pain, reflux, fever, chills, cough, wheezing, or palpitations. Physical Exam Vital Signs Vitals BP 143/85 P 90 TEMP 98.1 SP02 95% on RA RESP 18 Physical Patient resting comfortably in chair in no acute distress, alert and oriented, responding appropriately throughout visit Full cervical extension range of motion without pain TMD 3.5 finger breadths Mallampati Score 2 Dentition: full upper and partial lower dentures Lungs: normal respiratory effort. Good air movement, clear throughout to auscultation, no adventitious breath sounds Cardiac: regular rate and rhythm, no murmurs noted Lab Results Anesthesia Preop Results Results Anesthesia Widget: WBC 8.01 K/ul (4.8-10.8) 07/21/24 Hgb 13.5 g/dl (12.0-16.0) 07/21/24 Hct 40.9 % (37.0-47.0) 07/21/24 Plt 306 K/uL (130-400) 07/21/24 Na 138 mmol/L (136-145) 07/21/24 K 3.9 mmol/L (3.5-5.1) 07/21/24 Cl 101 mmol/L (98-107) 07/21/24 CO2 29 mmol/L (21-32) 07/21/24 BUN 20 mg/dl (6-23) 07/21/24 Creat 0.89 mg/dl (0.6-1.2) 07/21/24 Glucose Level 92 mg/dl (70-99(Fasting)) 07/21/24 PT 11.3 Seconds (9.0-12.0) 07/21/24 PTT 28 Seconds (21-31) 07/21/24 INR 1.0 (0.9-1.1) 07/21/24 Blood Type O Positive 07/21/24 Antibody Screen NEGATIVE 07/21/24 Testing Electrocardiogram Date: 03/02/24 NSR, rate 83 bpm Chest X-Ray Date: 11/12/23 No acute chest disease. Other Testing Neck CTA 07/09/24 1. Severe (80%) stenosis of the proximal right internal carotid artery due to calcified plaque. 2. Mild plaque within the proximal left internal carotid artery without stenosis. 3. Severe stenosis at the origin of the right external carotid artery.
--- NOTE | 2024-08-03 15:15 | History & Physical Report ---
Date of Service August 03, 2024 History of Present Illness Primary Care Provider: Kell Jorge Chief Complaint Rm 1. New patient, carotid stenosis. Had US done [facility] 06/15. Reason for Consultation Right carotid artery stenosis History of Present Illness I had the pleasure of seeing Belkys today for evaluation of carotid disease. As you know she is a 83-year-old female who was found to have a significant narrowing of the right internal carotid artery on the CT scan of soft tissue of her neck. She has had thyroid surgery in the past as well as neck radiation. She also had breast cancer with radiation. She denies any previous CVAs or T IAs. She claims this was an incidental finding on her CT scan. Review of Systems 10 systems were reviewed. The only positive findings are per the HPI. Physical Exam Vitals & Measurements BP: 132/76 SpO2: 99% WT: 68.5 kg WT: 68.500 kg (Dosing) Input and Output - Last 24 hours (Last 8 hours) No I/O Data Found: On exam she is awake alert and oriented x 3. Her blood pressure is 126/84 on the left and 132/76 on the right. She is in no apparent distress. Radials and carotids are +2 bilaterally. There is a soft right carotid bruit. Lungs are clear and her heart had a regular rate and rhythm. Abdominal sounds benign. Femorals are +2 and pedal pulses are +1 bilaterally. Neurologic exam is intact to motor and sensory function. Diagnostic Results Her CT scan does suggest a significant narrowing of the right internal carotid artery at the internal carotid artery origin which appears to be 80% or greater. Assessment/Plan Bilateral carotid artery stenosis We will obtain a CT angiogram of her carotid arteries to better define her carotid lesion. If this is indeed significant narrowing then we will consider intervention and hopefully a TCAR rather than endarterectomy. We will keep you informed as to her follow-ups. Thank you very much for letting us participate in the care of this patient. Sincerely, Pam Ragsdale MD This point with a narrowing greater than 80% recommended intervention on the right carotid. We went over the risks options benefits of carotid endarterectomy versus TCAR. She does have residual hoarseness from thyroid surgery which she has had which she believes involves the right vocal cord. At this point she elected to go with a TCAR which gives her less chance of worsening her hoarseness. The risks options benefits this procedure are documented in the consent form. No requirements for this TCAR I did she be on a statin, Plavix, and a baby aspirin. She is not on any of these. The scripts were sent to her pharmacy and she will start them tomorrow. Will then arrange for Plavix testing to see if she is a responder to the Plavix. If she is a nonresponder then we will have to switch her to Brilinta. Will try to get her surgery scheduled in the next 2 to 3 weeks. Body mass index [BMI] 27.0-27.9, adult Attestation I have personally spent __50___ minutes performing hmaq-vq-hynl and vgt-pahz-mf- face activities on this date of service. Activities Include: _x_ review of the medical record _x_ obtaining a history _x_ physical exam/evaluation __ review labs _x_ review radiology reports _x_ counseling/educating patient/family/caregiver __ discussion/referral to other healthcare professional _x_ documenting care in the medical record _x_ independent interpretation of results _ct @____[facility] __ communication of results to patient/family/caregiver __ coordination of care Problem List/Past Medical History Ongoing Abdominal wall strain AC joint arthropathy Allergies Arthritis of right glenohumeral joint Asthma Biceps tendinopathy Chronic cholecystitis Chronic kidney disease (CKD), stage III (moderate) Dentures complicating chewing Diarrhea Diverticulosis Enthesopathy of foot Family hx of colon cancer Female stress incontinence Hearing loss Hip flexor tendonitis History of palpitations History of sleep apnea HTN (hypertension) Hx of breast cancer Hx of thyroid cancer Hyperlipidemia Hypocalcemia Hypomagnesemia Hypothyroidism Irregular heart beats Lumbar facet arthropathy Lumbar scoliosis Osteopenia Prolonged QT interval Pseudogout PVC (premature ventricular contraction) Renal cyst Restless leg syndrome Right foot pain Right lumbar radiculopathy Rotator cuff tendinitis Sacroiliitis Sleep apnea Spondylolisthesis of lumbar region Spondylolisthesis, lumbosacral region 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 Vitamin D deficiency Resolved Breast cancer Procedure/Surgical History Mammogram| Service Date: 02/05/2023 Chest x-ray| Service Date: 11/07/2022 Pathology report| Service Date: 09/04/2022 Arthroscopy of shoulder| Service Date: 09/04/2022 Ultrasound of the mesenteric vasculature| Service Date: 05/16/2022 Mammogram - localization| Service Date: 01/31/2022 Diagnostic colonoscopy| Service Date: 01/16/2022 KUB X-ray| Service Date: 11/08/2021 Small bowel series--follow through| Service Date: 10/25/2021 CT angiogram of thorax, abdomen and pelvis with contrast| Service Date: 10/19/2021 CT of abdomen and pelvis without contrast| Service Date: 10/11/2021 Plain X-ray of right humerus| Service Date: 03/01/2021 Bone density scan| Service Date: 11/01/2020 Chest x-ray| Service Date: 06/15/2020 Eye examination| Service Date: 11/11/2019 Chest X-ray 2V PA/lateral| Service Date: 07/14/2019 Mammogram| Service Date: 02/11/2019 Nerve blocks in cervical region| Service Date: 12/31/2018 Denervation of joint| Service Date: 12/04/2018 Diagnostic mammogram| Service Date: 02/05/2018 Ultrasound scan of lower abdomen| Service Date: 01/03/2018 Ultrasound--RLQ| Service Date: 11/29/2017 X-ray of thoracic spine| Service Date: 11/29/2017 X-ray of thoracic spine| Service Date: 11/29/2017 Colonoscopy| Service Date: 11/20/2017 MRCP - Magnetic resonance cholangiopancreatography| Service Date: 11/07/2017 Laparoscopic cholecystectomy| Service Date: 04/01/2017 US EXAM ABDOM COMPLETE| Service Date: 03/23/2017 Mammogram| Service Date: 02/04/2017 DXA BONE DENSITY STUDY| Service Date: 12/25/2016 Echocardiogram| Service Date: 08/06/[address]| Service Date: 09/06/2015 Holter monitor EXCISION OF UVULA History of nasal sinus surgery Lumpectomy Tonsillectomy Knee arthroplasty Knee arthroplasty Hysterectomy Thyroidectomy APPENDECTOMY Injection into joint Medications Home celecoxib(CeleBREX 200 mg oral capsule), 200 mg= 1 cap, PO, Daily, PRN, 3 refills cholecalciferol(Vitamin D3 2000 intl units oral capsule) dicloxacillin(dicloxacillin 500 mg oral capsule), 500 mg= 1 cap, PO, qid fluticasone(Flovent HFA 220 mcg/inh MDI), 1 puff, inhaled, bid, 1 refills levocetirizine(Xyzal 5 mg oral tablet), 5 mg= 1 tab, PO, Daily, PRN levothyroxine(levothyroxine 100 mcg (0.1 mg) oral tablet), 1 tab, PO, Daily multivitamin with minerals(Centrum Silver oral tablet), 1 tab, PO, Daily olmesartan(olmesartan 20 mg oral tablet), 20 mg= 1 tab, PO, Daily, 1 refills Allergies Arimidex muscle spasms Ipratropium [place] sore throat , nose bleeds anastrozole Drug-induced nausea and vomiting enoxaparin Nausea and vomiting exemestane muscle spasms Social History Smoking Status Never smoked cigarettes Alcohol - No Risk Tobacco - Denies Tobacco Use Family History Brain cancer......: Father. Breast cancer: Sister, MGM and Paternal Uncle. Cancer: Father and Unknown. Cancer of colon: Mother, Brother and Unknown. Coronary artery disease: MGM. Heart attack: Sister, Brother and MGF. Heart disease: Brother. Lung cancer......: Sister. Malignant tumor of lung: Sister. Ovarian cancer......: Mother and PGM. Type II diabetes mellitus: Sister. Health Status Family Member(s) Immunizations Vaccine Date Status SARS-CoV-2 (COVID-19) mRNA-vacc - [id number] 06/11/2023 Recorded influenza virus vaccine, inactivated 05/21/2023 Given influenza virus vaccine, inactivated 07/02/2022 Given SARS-CoV-2 (COVID-19) mRNA-1273 vaccine 08/02/2021 Recorded influenza virus vaccine, inactivated 05/31/2021 Given SARS-CoV-2 (COVID-19) mRNA-1273 vaccine 10/21/2020 Recorded SARS-CoV-2 (COVID-19) mRNA-1273 vaccine 09/23/2020 Recorded pneumococcal 23-valent vaccine 08/23/2020 Given tetanus/diphtheria/pertuss, acel (Tdap) 08/28/2016 Recorded Signature Line Electronic Signature on File Jamie Ragsdale MD Author Signature Dt/Tm: 07/06/2024 03:02 PM Ccna Kennedy Barbosa [facility] [place] [address], [address] [place] [address] EJS Result Type: .Outpt Ltr Date of Service: July 06, 2024 14:58 EST Authorization Status: Final Subject: Consult Note Author or Import Date: MD Ragsdale Eugene J on July 06, 2024 15:02 EST Verified By: MD Ragsdale Eugene J on July 06, 2024 15:02 EST Encounter info: [id number], [place] [id number], Clinic, 07/06/2024 - 07/06/2024 Allergies Allergy/AdvReac Type Severity Reaction Status Date / Time anastrozole Allergy Severe Osteoporosis, Verified 07/16/24 09:23 muscle aches exemestane Allergy Severe Osteoporosis, Verified 07/16/24 09:23 muscle aches adhesive Allergy Intermediate Skin Verified 07/16/24 09:23 irritation (some tapes/bandaids) Home Medications Medication Instructions Recorded Confirmed Type cholecalciferol (vitamin D3) 50 2,000 unit PO QPM 07/25/20 07/16/24 History mcg (2,000 unit) capsule (Vitamin D3) vitamin B complex 1 cap PO UD 01/11/22 07/16/24 History levothyroxine 100 mcg tablet 100 mcg PO QAM 05/16/22 07/16/24 History (Synthroid) mvmhlqsf-odaw-dnnz 8 mg-folic 400 1 tab PO QPM 05/16/22 07/16/24 History mcg-K 50 mcg-lutein 300 mcg tablet (Centrum Silver Women) levocetirizine 5 mg tablet 5 mg PO DAILY PRN Allergy Symptoms 11/07/23 07/16/24 History pramipexole 1 mg tablet 1 mg PO HS 11/07/23 07/16/24 History aspirin 81 mg capsule 81 mg PO QAM 07/16/24 07/16/24 History atorvastatin 80 mg tablet (Lipitor) 80 mg PO QAM 07/16/24 07/16/24 History celecoxib 200 mg capsule (Celebrex) 200 mg PO DAILY PRN Pain 07/16/24 07/16/24 History clopidogrel 75 mg tablet (Plavix) 75 mg PO QAM 07/16/24 07/16/24 History olmesartan 20 mg tablet 20 mg PO HS 07/16/24 07/16/24 History Past Med/Surg History Problem List (Updated 07/21/24 @ 14:50 by Genie Wyman PA-C) Carotid stenosis LPRD (laryngopharyngeal reflux disease) Presbylarynx Dysphonia Encounter for pre-operative examination Pain in right axilla Chronic issue, unchanged/at baseline Allergic rhinitis Chronic sinusitis Restrictive lung disease Multiple pulmonary nodules Restless leg syndrome Hypothyroidism, postablative (Acute) SULLIVAN (dyspnea on exertion) PVC (premature ventricular contraction) Follows with Dr Tierney, no current/recent issues Palpitations Hypercholesterolemia Pulmonary nodule History of breast cancer Right, 2013- s/p xrt/chemo/lumpectomy Asthma (Chronic) Hypertension (Chronic) Medical History (Updated 07/21/24 @ 14:50 by Genie Wyman PA-C) Limb alert care status right arm restriction PVC (premature ventricular contraction) Follows with Dr Tierney, no current/recent issues Carotid stenosis HX: breast cancer Right, 2013- s/p xrt/chemo/lumpectomy-right arm restriction Chronic hoarseness Neck mass resolved per pt Hypothyroidism (acquired) CKD (chronic kidney disease) Per records Chronic nasal discharge Chronic post-nasal drip (chronic/intermittent sore throat r/t post-nasal drip) Restless leg syndrome Hypertension controlled, stable per pt Asthma pt denies "not really, I did years ago" no inhalers History of thyroid cancer 1996- s/p radioactive iodine/thyroidectomy Hearing deficit B/L hearing aids Hyperlipidemia Sleep apnea "Mild"- s/p UPPP Has not used device since recalled Fall 2020 (has not received information regarding new device) Surgical History History of right shoulder replacement History of uvulopalatopharyngoplasty Hx of arthroscopy of shoulder Right Shoulder Arthroscopy, Subacromial Decompression, Distal Clavicle Excision (09/04/22): Grade 2 view, ETT 7.0 + regional at [facility] History of esophagogastroduodenoscopy (EGD) History of revision of total replacement of left knee joint x2 History of prosthetic unicompartmental arthroplasty of left knee History of revision of total replacement of right knee joint History of cataract surgery R/L History of surgery Right sacroiliac joint cooled denervation History of tooth extraction History of tonsillectomy and adenoidectomy History of sinus surgery History of total abdominal hysterectomy and bilateral salpingo-oophorectomy History of cholecystectomy History of appendectomy History of colonoscopy Status post biopsy of thyroid gland History of breast biopsy History of lumpectomy of right breast History of thyroidectomy, total History of knee replacement R/L Family History Mother Family history of reaction to anesthesia Slow to wake Sister Family history of reaction to anesthesia Sister had reaction to medications used with surgery but does not have further details to provide/unknown reaction. Denies family or personal hx of MH or pseudocholinesterase deficiency. Hypertension Stroke Sister Family history of diabetes mellitus Grandfather (Maternal) Family hx of colon cancer Brother Family hx of colon cancer Hypertension Mother Family hx of colon cancer Grandfather Hypertension Son Asthma Other FHx: brain cancer FHx: leukemia FHx: lung cancer Heart disease Social History Smoking Status: Never smoker Second Hand Exposure: Yes (hx); Do You Dip or Chew Tobacco: No; Tobacco Cessation Education Requested by Patient: No Hx Alcohol Use: Yes Alcohol type: wine Hx Substance Use: No Preferred Language: Bulgarian Communication Ability: Effective Lump Room Supervisor Required: No Beliefs That Will Affect Care: None Current Living Situation: Spouse Other Information That Helps Us Care for You: No Feels Safe at Home: Yes Safety Concerns: Feels Safe At This Time Assistive Devices: Glasses and Hearing Aid - Bilateral
[2024-08-04] MEDS: SODIUM CHLORIDE 0.9% 1,000 ML IV SCH ×2 (07:05→13:07)
[2024-08-04] MEDS: ASPIRIN 81 MG ECTAB PO STA (07:21)
[2024-08-04] MEDS: CLOPIDOGREL BISULFATE 75 MG TAB PO ONE (07:21)
[2024-08-04] MEDS ORDERED: HYDROmorphone INJ 1 MG/ML SYRINGE IV PRN (07:29)
[2024-08-04] MEDS ORDERED: ATROPINE SULFATE 0.1 MG/ML 10ML SYR IV PRN (07:29)
[2024-08-04] MEDS ORDERED: fentaNYL citrate PF 100 MCG/2 ML VIAL IV PRN (07:29)
[2024-08-04] MEDS ORDERED: ePHEDrine sulfate 50 MG/ML AMP IV PRN (07:29)
[2024-08-04] MEDS ORDERED: ONDANSETRON INJ 2 MG/ML 2 ML VIAL IV PRN (07:29)
--- NOTE | 2024-08-04 07:31 | History & Physical Bridge Note ---
Date of Service August 04, 2024 History & Physical Bridge Note I have examined the patient, reviewed the History & Physical and in the interval since the performance of the History & Physical I have noted the following changes of clinical significance: no changes noted
[2024-08-04] MEDS ORDERED: PHENYLEPHRINE HCL 25 MG/250 ML NSS IV ONE (07:32)
[2024-08-04] MEDS ORDERED: fentaNYL citrate PF 100 MCG/2 ML VIAL ONE (07:32)
[2024-08-04] MEDS ORDERED: ROCURONIUM BROMIDE 10 MG/ML 5 ML VIAL IV ONE (07:33)
[2024-08-04] MEDS ORDERED: PROPOFOL IV EMULSION 10 MG/ML 20 ML VIAL IV ONE ×2 (07:33)
[2024-08-04] MEDS ORDERED: ONDANSETRON INJ 2 MG/ML 2 ML VIAL ONE ×2 (07:33→10:07)
[2024-08-04] MEDS ORDERED: DEXAMETHASONE SOD INJ 4 MG/ML VIAL ONE (07:33)
[2024-08-04] MEDS ORDERED: GLYCOPYRROLATE 0.2 MG/ML VIAL ONE ×3 (07:33→10:08)
[2024-08-04] MEDS ORDERED: LIDOCAINE 2% 2 ML VIAL/AMP(20MG/ML) INFIL ONE (07:33)
[2024-08-04] MEDS ORDERED: ATROPINE SULFATE 0.4 MG/ML 1 ML VIAL ONE (07:37)
[2024-08-04] MEDS: ceFAZolin 2000MG 2,000 MG/15 ML SYR IV SCH ×2 (08:55→17:30)
[2024-08-04] MEDS ORDERED: ESMOLOL HCL INJ 10 MG/ML 10ML VIAL IV ONE (09:33)
--- NOTE | 2024-08-04 09:36 | Anesthesia Procedure Note ---
Anesthesia Procedure Note Arterial Line Note Patient medical history, medications, allergies and vitals reviewed. Date of procedure: 08/04/24 Consent: Risk / Benefits Reviewed With: PT / POA / Parent / Guardian, Accepts Plan, Informed Consent Obtained and All Questions Answered Monitors attached: Blood Pressure, CO2, EKG and Pulse Oximetry Time out completed: Yes Premedication: None Laterality: Left Location: Brachial (first attempt radial) Hand hygeine: Soap and water and Alcohol based hand rub Equipment/Supplies: Cap, Mask, Sterile gown, Sterile gloves, Sterile drapes and Sterile procedures used Skin prep: Chloraprep Local medication: 1% Lidocaine (ml) Ultrasound used: Yes US equipment and supplies: Sterile Gel and Sterile Probe Cover Attempts: 2 Procedure Summary: 20 gauge angiocath advanced until return of bright red blood. Catheter threaded using seldinger technique with return of pulsatile, bright red blood. Catheter secured with tape and covered with occlusive dressing. Waveform consistent with correct arterial placement. After placement, normal perfusion was observed distal to the site of catheter placement. Post-Procedure: Pt hemodynamically stable, Pt tolerates well and No complication Anesthesia Charges Arterial Line A Line Charges: 20053 Insert Art line Samp/Mon/Joe
[2024-08-04] MEDS ORDERED: HEPARIN SOD (PORCINE) 1000 UNIT/ML ONE (09:37)
[2024-08-04] MEDS ORDERED: PROTAMINE SULFATE 10 MG/ML 5 ML VIAL IV ONE (10:04)
[2024-08-04] MEDS ORDERED: NEOSTIGMINE METHYLSULFATE 1 MG/ML 10ML VIAL ONE (10:07)
--- NOTE | 2024-08-04 10:17 | Post Operative Brief Note ---
Immediate Post Op Note Date of Surgery August 04, 2024 Pre & Post Diagnosis Operation Date: 08/04/24 08:40 Pre-Op Diagnosis: Occlusion and Stenosis of Bilateral Artery Post-Op Diagnosis: Occlusion and Stenosis of Bilateral Artery I identified the patient and participated in the time-out.: Yes Procedure Operation Date: 08/04/24 08:40 Actual Procedures p Right Transcarotid Artery Revascularization, Ultrasound of Left Common Femoral Vein(Right) - Jamie Ragsdale MD Surgeon Jamie Ragsdale MD Asset Availability Leader DO Malinda Zapien,PAC Estimated Blood Loss 10 Findings Consistent with Post-Op Diagnosis Anesthesia Type General Complications none Disposition Accompanied Patient To Recovery: No Disposition: Recovery Room
[2024-08-04] MEDS: ceFAZolin 330 MG/ML 1 GM VIAL ONE (10:31)
[2024-08-04] MEDS: BUPIVACAINE/EPINEPHRINE 0.5% MPF 1:200,000 30 ML VIAL ONE (10:31)
[2024-08-04] MEDS: GELATIN SPONGE SZ 100 ONE (10:32)
[2024-08-04] MEDS: HEPARIN (PORCINE) 1000 UNIT/ML 10 ML (CATH LAB USE ONLY) ONE (10:32)
[2024-08-04] MEDS: THROMBIN FOR SOLN 20000 UNIT KIT ONE (10:33)
--- NOTE | 2024-08-04 10:39 | Operative Report ---
Post Operative Report Pre & Post Diagnosis Operation Date: 08/04/24 08:40 Pre-Op Diagnosis: Occlusion and Stenosis of Bilateral Artery Post-Op Diagnosis: Occlusion and Stenosis of Bilateral Artery I identified the patient and participated in the time-out.: Yes Procedure Operation Date: 08/04/24 08:40 Actual Procedures p Right Transcarotid Artery Revascularization, Ultrasound of Left Common Femoral Vein(Right) - Jamie Ragsdale MD Surgeon MD Josue Home Attendant DO Myles JamisonMinarchick,PAC Estimated Blood Loss 10 Findings Consistent with Post-Op Diagnosis Focal stenosis at proximal ICA, improved following stenting and angioplasty. Pt was moving all extremities at the conclusion of the case. Fluids Per anesthesia report Specimens No specimen. Drains No drain Complications None apparent Indications Asymptomatic R carotid stenosis. Description of Procedure The patient was brought to the operating room, where lines were placed and general anesthesia was accomplished by anesthesia team. A shoulder roll was placed and the neck was rotated towards the left side of the patient. The right neck and left groin were prepped and patient was draped in the usual sterile fashion. A timeout was performed identifying the correct patient by name, procedure, and location of procedure and all were in agreement. A 4cm transverse incision was made between the sternal and clavicular heads of the sternocleidomastoid muscle. The muscle heads were retracted to each side and the carotid sheath was identified. Using blunt dissection, the carotid sheath was opened and 3cm of common carotid artery (CCA) were isolated. Umbilical tape was placed around the proximal CCA under direct visualization. A 5-0 prolene U-stitc h was pre-placed in the anterior wall of the CCA to facilitate hemostasis after removal of the arterial sheath at completion of the procedure. The patient was given 8000 units of IV heparin. The contralateral (left) common femoral vein was accessed under ultrasound guidance, using a micropuncture needle and a wire and sheath were placed using modified Seldinger technique. The venous return sheath was advanced into the common femoral vein over the 0.035" wire. Blood was aspirated from the flow line and the sheath was flushed with heparinized saline.The sheath was secured to the patient's skin with a 2-0 silk stitch to maintain position in the vessel. ACT was confirmed to be above 250 seconds prior to arterial access. A 4-Czech non- stiffened micropuncture set was used, puncturing the artery with a 21G needle through the pre-placed U-stitch while holding gentle traction on the umbilical tape to stabilize the CCA within the incision. The micropuncture wire was advanced 3-4cm into the CCA and the 21G needle removed. The micropuncture sheath was advanced 3cm into the CCA and the wire and dilator were removed. A cerebral angiogram was obtained after ensuring there were no air bubbles in the system. The J-tipped guidewire was inserted and the external carotid artery was engaged After micropuncture sheath removal, the transcarotid arterial sheath was advanced to the 3rd marker and the 0.035" wire and dilator were removed. Arterial sheath position was assessed under fluoroscopy. The arterial sheath was sutured to the patient at two sites. The Flow Controller was connected to the transcarotid arterial sheath, prepared by passively allowing arterial blood to backfill the line and then it was connected to the venous return sheath. The CCA was clamped proximally with a Oli tourniquet to ensure active flow reversal. Heparinized saline was delivered into the venous flow line to confirm adequate flow reversal. A TCAR timeout was performed, heart rate was >70bpm and systolic BP was >140mmHg. Patient had been pretreated with glycopyrrolate and atropine was available. The lesion was crossed with an 0.014" guidewire and pre-dilation balloon angioplasty was performed with a 5x25 [employer] rapid exchange balloon to 12 atmospheres . A 8-6x30mm ENROUTE transcarotid stent was placed, sized to the right CCA. A completion angiogram was performed showing appropriate stent position with good wall apposition. Post-dilation balloon angioplasty was performed with a 5x25 silk [address] rapid exchange balloon. At TCAR case completion, antegrade flow was restored by releasing the tourniquet on the CCA and closing the stopcocks to the flow lines. The total clamp time was minutes. The transcarotid arterial sheath was removed and the pre-placed suture was tied. 25 of protamine were given. A repeat ACT was obtained and was 146. The venous return sheath was removed and hemostasis achieved with manual compression. The neck incision was irrigated with antibiotic solution and was hemostatic before closure. The platysma was approximated with 3-0 Vicryl running suture and the skin was closed with 4-0 running Vicryl suture and covered with Dermabond. The patient tolerated the procedure well and was extubated in the operating room. He was moving all four extremities to command prior to transfer to the recovery room. All counts were correct at the end of the procedure. Fluoroscopy time was 4.9minutes, radiation dose was 43mGy and 16cc of contrast were used. Dr. Ragsdale was present and participated in all critical parts of the procedure. I attest to the content of the Intraoperative Record and any orders documented therein. Any exceptions are noted below.
[2024-08-04] MEDS ORDERED: STAT IV Infusion **Titration per Protocol STA ×2 (11:03→12:53)
[2024-08-04] MEDS: PHENYLEPHRINE/NSS 25 MG/250 ML BAG IV SCH (11:06)
--- NOTE | 2024-08-04 12:10 | Anesthesiology Progress Note ---
Date of Service August 04, 2024 Anesthesia Post Procedure Vital Signs Vital Signs: Temp Pulse Pulse Resp BP BP BP 08/04/24 12:00 62 17 149/64 H 127/58 L 08/04/24 11:50 36.4 C L 59 L 16 149/72 H 142/63 H 08/04/24 11:40 59 L 16 155/70 H 142/65 H 08/04/24 11:30 60 15 153/62 H 150/68 H 08/04/24 11:20 65 15 101/50 L 93/42 L 08/04/24 11:10 65 16 129/56 L 140/72 08/04/24 11:00 69 15 106/45 L 100/51 L 08/04/24 10:50 36.2 C L 70 21 40/28 L 68/30 L 08/04/24 06:45 36.7 C 86 20 147/111 H Pulse Ox O2 Del Method O2 Flow Rate 08/04/24 12:00 96 Room Air 08/04/24 11:50 100 Room Air 08/04/24 11:40 100 Room Air 08/04/24 11:30 100 Oxymask 2 08/04/24 11:20 100 Oxymask 4 08/04/24 11:10 100 Oxymask 4 08/04/24 11:00 100 Oxymask 9 08/04/24 10:50 100 Oxymask 9 08/04/24 06:45 96 Room Air Transfer of Care Handoff Completed per policy Notes Mental Status: alert / awake / arousable and participated in evaluation Patient Amnestic to Procedure: Yes Nausea / Vomiting: adequately controlled Pain: adequately controlled Airway Patency, RR, SpO2: stable & adequate BP & HR: stable & adequate Hydration State: stable & adequate Anesthetic Complications: no major complications apparent and Pt Satisfied with anesthetic care
[2024-08-04] MEDS ORDERED: PHENYLEPHRINE/NSS 25 MG/250 ML BAG IV PRN (12:53)
[2024-08-04] MEDS ORDERED: oxyCODONE/ACETAMINOPHEN 5mg/325mg TAB PO PRN (12:53)
[2024-08-04] MEDS: ASPIRIN 81 MG ECTAB PO ONE (13:04)
[2024-08-04] MEDS: VISIPAQUE IV ONE (13:04)
[2024-08-04] MEDS: LACTATED RINGER'S 1,000 ML IV SCH (13:05)
[2024-08-04] MEDS ORDERED: CETIRIZINE HCL 10 MG TABLET PO PRN (13:08)
[2024-08-04] MEDS: VITAMIN B COMPLEX TAB PO SCH (13:59)
--- NOTE | 2024-08-04 14:23 | Critical Care Consultation ---
Date of Consultation August 04, 2024 Assessment & Plan (1) Carotid stenosis: Patient asymptomatic tolerating diet -Routine postop care (2) Hypercholesterolemia: (3) Hypertension: History of Present Illness Reason for Consultation: Postop TCAR Attending Physician: Jamie Ragsdale MD History of Present Illness Patient is an 84-year-old female with past medical history of hypertension, hypercholesterolemia and carotid stenosis found during evaluation for possible neck mass. Patient underwent a successful right-sided endovascular stent placement of her right carotid artery. Patient denies headache chest pain or shortness of breath. In the PACU she had mild numbness and tingling of her left thumb and finger however that is since resolved. Allergies Allergy/AdvReac Type Severity Reaction Status Date / Time anastrozole Allergy Severe Osteoporosis, Verified 08/04/24 06:41 muscle aches exemestane Allergy Severe Osteoporosis, Verified 08/04/24 06:41 muscle aches adhesive Allergy Intermediate Skin Verified 08/04/24 06:41 irritation (some tapes/bandaids) Home Medications Medication Instructions Recorded Confirmed Type cholecalciferol (vitamin D3) 50 2,000 unit PO QPM 07/25/20 08/04/24 History mcg (2,000 unit) capsule (Vitamin D3) vitamin B complex 1 cap PO UD 01/11/22 08/04/24 History levothyroxine 100 mcg tablet 100 mcg PO QAM 05/16/22 08/04/24 History (Synthroid) [id number] 8 mg-folic 400 1 tab PO QPM 05/16/22 08/04/24 History mcg-K 50 mcg-lutein 300 mcg tablet (Centrum Silver Women) levocetirizine 5 mg tablet 5 mg PO DAILY PRN Allergy Symptoms 11/07/23 08/04/24 History pramipexole 1 mg tablet 1 mg PO HS 11/07/23 08/04/24 History aspirin 81 mg capsule 81 mg PO QAM 07/16/24 08/04/24 History atorvastatin 80 mg tablet (Lipitor) 80 mg PO QAM 07/16/24 08/04/24 History celecoxib 200 mg capsule (Celebrex) 200 mg PO DAILY PRN Pain 07/16/24 08/04/24 History clopidogrel 75 mg tablet (Plavix) 75 mg PO QAM 07/16/24 08/04/24 History olmesartan 20 mg tablet 20 mg PO HS 07/16/24 08/04/24 History Patient History Medical History Limb alert care status right arm restriction PVC (premature ventricular contraction) Follows with Dr Tierney, no current/recent issues Carotid stenosis HX: breast cancer Right, 2013- s/p xrt/chemo/lumpectomy-right arm restriction Chronic hoarseness Neck mass resolved per pt Hypothyroidism (acquired) CKD (chronic kidney disease) Per records Chronic nasal discharge Chronic post-nasal drip (chronic/intermittent sore throat r/t post-nasal drip) Restless leg syndrome Hypertension controlled, stable per pt Asthma pt denies "not really, I did years ago" no inhalers History of thyroid cancer 1996- s/p radioactive iodine/thyroidectomy Hearing deficit B/L hearing aids Hyperlipidemia Sleep apnea "Mild"- s/p UPPP Has not used device since recalled Fall 2020 (has not received information regarding new device) Surgical History History of right shoulder replacement History of uvulopalatopharyngoplasty Hx of arthroscopy of shoulder Right Shoulder Arthroscopy, Subacromial Decompression, Distal Clavicle Excision (09/04/22): Grade 2 view, ETT 7.0 + regional at [facility] History of esophagogastroduodenoscopy (EGD) History of revision of total replacement of left knee joint x2 History of prosthetic unicompartmental arthroplasty of left knee History of revision of total replacement of right knee joint History of cataract surgery R/L History of surgery Right sacroiliac joint cooled denervation History of tooth extraction History of tonsillectomy and adenoidectomy History of sinus surgery History of total abdominal hysterectomy and bilateral salpingo-oophorectomy History of cholecystectomy History of appendectomy History of colonoscopy Status post biopsy of thyroid gland History of breast biopsy History of lumpectomy of right breast History of thyroidectomy, total History of knee replacement R/L Family History Mother Family history of reaction to anesthesia Slow to wake Sister Family history of reaction to anesthesia Sister had reaction to medications used with surgery but does not have further details to provide/unknown reaction. Denies family or personal hx of MH or pseudocholinesterase deficiency. Hypertension Stroke Sister Family history of diabetes mellitus Grandfather (Maternal) Family hx of colon cancer Brother Family hx of colon cancer Hypertension Mother Family hx of colon cancer Grandfather Hypertension Son Asthma Other FHx: brain cancer FHx: leukemia FHx: lung cancer Heart disease Social History Smoking Status: Never smoker Second Hand Exposure: Yes (hx); Do You Dip or Chew Tobacco: No; Tobacco Cessation Education Requested by Patient: No Hx Alcohol Use: Yes Alcohol type: wine Hx Substance Use: No Preferred Language: Luxembourgish Communication Ability: Effective Auto Repair Technician Required: No Beliefs That Will Affect Care: None Current Living Situation: Spouse Other Information That Helps Us Care for You: No Feels Safe at Home: Yes Safety Concerns: Feels Safe At This Time Assistive Devices: Glasses and Hearing Aid - Bilateral Physical Exam Physical Exam: General: Alert. nontoxic. Skin: Warm, dry, Head: Incision clean dry and intact, ice pack in place. Ears, nose, mouth and throat: airway patent Cardiovascular: Normal peripheral perfusion Respiratory: no respiratory distress Gastrointestinal: Non distended Musculoskeletal: No deformity, left brachial artery arterial line. Normal capillary refill of left hand Results & Data Results & Data Vital Signs (Past 12 Hours) Vital Signs Temp Pulse Pulse Pulse Resp BP BP 08/04/24 13:42 60 22 08/04/24 13:27 59 L 20 08/04/24 13:00 62 21 124/56 L 08/04/24 12:45 61 18 08/04/24 12:36 61 20 152/69 H 08/04/24 12:30 58 L 18 08/04/24 12:00 62 17 08/04/24 11:50 36.4 C L 59 L 16 08/04/24 11:40 59 L 16 08/04/24 11:30 60 15 08/04/24 11:20 65 15 08/04/24 11:10 65 16 08/04/24 11:00 69 15 08/04/24 10:50 36.2 C L 70 21 08/04/24 06:45 36.7 C 86 20 147/111 H BP BP Pulse Ox O2 Del Method O2 Flow Rate 08/04/24 13:42 97 Room Air 08/04/24 13:27 96 Room Air 08/04/24 13:00 93 Room Air 08/04/24 12:45 96 Room Air 08/04/24 12:36 96 Room Air 08/04/24 12:30 97 Room Air 08/04/24 12:00 149/64 H 127/58 L 96 Room Air 08/04/24 11:50 149/72 H 142/63 H 100 Room Air 08/04/24 11:40 155/70 H 142/65 H 100 Room Air 08/04/24 11:30 153/62 H 150/68 H 100 Oxymask 2 08/04/24 11:20 101/50 L 93/42 L 100 Oxymask 4 08/04/24 11:10 129/56 L 140/72 100 Oxymask 4 08/04/24 11:00 106/45 L 100/51 L 100 Oxymask 9 08/04/24 10:50 40/28 L 68/30 L 100 Oxymask 9 08/04/24 06:45 96 Room Air Critical Care Results & Data Vital Signs (Past 12 Hours) Vital Signs Temp Pulse Pulse Pulse Resp BP BP 08/04/24 14:12 66 19 121/62 08/04/24 14:00 69 19 132/60 08/04/24 13:42 60 22 08/04/24 13:27 59 L 20 08/04/24 13:00 62 21 124/56 L 08/04/24 12:45 61 18 08/04/24 12:36 61 20 152/69 H 08/04/24 12:30 58 L 18 08/04/24 12:00 62 17 08/04/24 11:50 36.4 C L 59 L 16 08/04/24 11:40 59 L 16 08/04/24 11:30 60 15 08/04/24 11:20 65 15 08/04/24 11:10 65 16 08/04/24 11:00 69 15 08/04/24 10:50 36.2 C L 70 21 08/04/24 06:45 36.7 C 86 20 147/111 H BP BP Pulse Ox O2 Del Method O2 Flow Rate 08/04/24 14:12 97 Room Air 08/04/24 14:00 94 Room Air 08/04/24 13:42 97 Room Air 08/04/24 13:27 96 Room Air 08/04/24 13:00 93 Room Air 08/04/24 12:45 96 Room Air 08/04/24 12:36 96 Room Air 08/04/24 12:30 97 Room Air 08/04/24 12:00 149/64 H 127/58 L 96 Room Air 08/04/24 11:50 149/72 H 142/63 H 100 Room Air 08/04/24 11:40 155/70 H 142/65 H 100 Room Air 08/04/24 11:30 153/62 H 150/68 H 100 Oxymask 2 08/04/24 11:20 101/50 L 93/42 L 100 Oxymask 4 08/04/24 11:10 129/56 L 140/72 100 Oxymask 4 08/04/24 11:00 106/45 L 100/51 L 100 Oxymask 9 08/04/24 10:50 40/28 L 68/30 L 100 Oxymask 9 08/04/24 06:45 96 Room Air Lab & Micro Results (Past 24 Hours) No Data to Display No Data to Display No Data to Display I & O Totals 24 Hours 08/03/24 08/04/24 08/05/24 06:59 06:59 06:59 Intake Total 1040.147 / 1040.147 Output Total 10 / 10 Balance 1030.147 / 1030.147 Cumulative 07/16/24 08:12 thru 08/04/24 13:04 Intake Total 1040.147 Output Total 10 Balance 1030.147 RT Ventilator Mngmt (Last Documented) Ventilator Ordered Settings Respiratory Rate 19 08/04/24 14:12 Ventilator - PT Measurements Respiratory Rate 19 Coding Level of Care Code 06133 IN/OBS CONSULT LVL 2,35M Diagnoses Stenosis of right carotid artery I65.21 Laterality: right Hypercholesterolemia E78.00 Hypertension I10 (1) Carotid stenosis Laterality: right Qualified Code(s): I65.21 - Occlusion and stenosis of right carotid artery
[2024-08-04] MEDS: LOSARTAN POTASSIUM 50 MG TAB PO SCH (22:44)
[2024-08-04] MEDS: PRAMIPEXOLE DIHYDROCHLO 0.5 MG TAB PO SCH (22:46)
[2024-08-04] MEDS: CHOLECALCIFEROL 25 MCG (1000 UNITS) TAB PO SCH (22:46)
[2024-08-04] MEDS: CEROVITE ADV FORMULA TAB PO SCH (22:46)
[2024-08-05] MEDS: LEVOTHYROXINE SODIUM 100 MCG TABLET PO SCH (06:20)
[2024-08-05] MEDS ORDERED: Nursing to Pharmacy Communication SCH ×2 (06:30→13:45)
[2024-08-05] MEDS: ASPIRIN 81 MG ECTAB PO SCH (07:40)
[2024-08-05] MEDS: CeleBREX 200 MG CAP PO PRN (07:40)
[2024-08-05] MEDS: ATORVASTATIN 40 MG TAB PO SCH (07:40)
[2024-08-05] MEDS: CLOPIDOGREL BISULFATE 75 MG TAB PO SCH (07:41)
--- NOTE | 2024-08-05 13:08 | Surgery Progress Note ---
Date of Service August 05, 2024 Assessment & Plan (1) Carotid stenosis: Plan: Patient POD 1 from a right tcar. Doing well other than transient hypotension. (2) Hypotension after procedure: Plan: Patient with transient hypotension post tcar. On phenylephrine drip. Will start midodrine and wean off pressors. Admission and Anticipated Discharge Date Admission Date: August 04, 2024 Subjective Patient without complaints. Does have periods of hypotension and on a pheylnephrine drip. Physical Exam Constitutional: WD/WN, vitals as above Neck: trachea midline Respiratory: normal respiratory effort and + respiratory distress Cardiovascular: Rate/Rhythm: regular rate and regular rhythm Skin: + incision (mild ecchymosis present) Neurologic: CN's II-XI intact bilaterally and moves all extremities Psychiatric: A+Ox3, euthymic affect Results & Data Vital Signs (Past 12 Hours) Vital Signs Temp Pulse Resp BP Pulse Ox O2 Del Method 08/05/24 12:48 54 L 16 96 08/05/24 12:46 89/49 L 08/05/24 12:32 90/47 L 08/05/24 12:15 74 21 08/05/24 12:00 100/58 L 08/05/24 12:00 100/58 L 08/05/24 12:00 63 23 08/05/24 11:30 60 23 08/05/24 11:30 113/58 L 08/05/24 11:09 64 16 97 08/05/24 11:03 62 17 98 08/05/24 11:02 87/37 L 08/05/24 10:40 96/60 L 08/05/24 10:36 61 24 97 08/05/24 10:33 53 L 19 91 08/05/24 10:24 60 12 94 08/05/24 10:03 62 23 96 08/05/24 10:00 94/54 L 08/05/24 09:33 59 L 28 H 96 08/05/24 09:27 82 17 96 Room Air 08/05/24 09:12 103/53 L 08/05/24 09:09 61 27 H 96 08/05/24 08:33 66 27 H 96 08/05/24 07:43 36.7 C 08/05/24 07:30 64 15 95 Room Air 08/05/24 07:15 59 L 19 95 08/05/24 07:00 100/58 L 08/05/24 06:57 78/44 L 08/05/24 06:51 72 08/05/24 06:48 56 L 25 H 95 08/05/24 06:42 56 L 26 H 96 08/05/24 06:18 63 18 96 08/05/24 06:00 117/67 08/05/24 05:57 60 13 94 08/05/24 05:33 62 16 95 08/05/24 05:03 57 L 14 96 08/05/24 05:00 106/57 L 08/05/24 05:00 106/57 L 08/05/24 04:42 66 17 94 08/05/24 04:30 61 14 92 08/05/24 04:03 68 10 L 98 08/05/24 04:00 109/83 08/05/24 04:00 109/83 08/05/24 04:00 109/83 08/05/24 04:00 63 100/47 L 08/05/24 04:00 36.9 C 08/05/24 03:57 60 13 96 08/05/24 03:36 59 L 15 90 08/05/24 03:00 148/69 H 08/05/24 03:00 63 18 95 08/05/24 02:30 60 18 97 08/05/24 02:18 60 13 95 08/05/24 01:30 71 26 H 97 (1) Carotid stenosis Laterality: right Qualified Code(s): I65.21 - Occlusion and stenosis of right carotid artery
[2024-08-05] MEDS: MIDODRINE HCL 2.5 MG TAB PO SCH (14:31)
[2024-08-05] MEDS ORDERED: MIDODRINE HCL 2.5 MG TAB PO SCH (17:00)
[2024-08-06 08:21] VITALS: TEMP 98.4
--- NOTE | 2024-08-06 13:45 | Surgery Progress Note ---
Date of Service August 06, 2024 Assessment & Plan (1) Carotid stenosis: Plan: Patient POD 2 from a right tcar. Doing well. Will D\C today (2) Hypotension after procedure: Plan: Off of phenylephrine drip. Hypotension resolved Admission and Anticipated Discharge Date Admission Date: August 04, 2024 Subjective Patient without complaints. Off of pheylnephrine drip. Physical Exam Constitutional: WD/WN, vitals as above Neck: trachea midline Respiratory: normal respiratory effort and + respiratory distress Cardiovascular: Rate/Rhythm: regular rate and regular rhythm Skin: + incision (mild ecchymosis present) Neurologic: CN's II-XI intact bilaterally and moves all extremities Psychiatric: A+Ox3, euthymic affect Results & Data Vital Signs (Past 12 Hours) Vital Signs Temp Pulse Resp BP Pulse Ox O2 Del Method 08/06/24 13:15 58 L 25 H 97 08/06/24 13:00 110/60 08/06/24 12:57 57 L 22 95 08/06/24 12:39 64 21 95 08/06/24 12:00 63 14 99 08/06/24 12:00 107/61 08/06/24 12:00 107/61 08/06/24 12:00 107/61 08/06/24 12:00 107/61 08/06/24 11:33 62 20 97 08/06/24 11:30 97/65 L 08/06/24 11:27 62 10 L 96 08/06/24 11:00 58 L 13 96 08/06/24 10:39 65 19 97 08/06/24 10:31 101/60 08/06/24 10:27 64 15 97 08/06/24 10:12 59 L 18 98 08/06/24 10:00 118/66 08/06/24 10:00 118/66 08/06/24 09:57 60 21 96 08/06/24 09:51 65 19 97 08/06/24 09:51 104/66 08/06/24 09:00 55 L 18 97 08/06/24 09:00 122/61 08/06/24 08:33 56 L 22 95/54 L 97 Room Air 08/06/24 08:00 74 08/06/24 08:00 36.9 C 08/06/24 07:30 65 21 97 08/06/24 07:21 66 18 95 08/06/24 07:09 112/58 L 08/06/24 07:00 115/62 08/06/24 06:30 119/54 L 08/06/24 06:30 55 L 16 94 08/06/24 06:30 119/54 L 08/06/24 06:09 54 L 14 98 08/06/24 06:00 110/64 08/06/24 05:45 62 19 93 08/06/24 05:39 56 L 15 97 08/06/24 05:30 118/62 08/06/24 05:27 62 13 93 08/06/24 05:09 53 L 16 95 08/06/24 05:00 102/53 L 08/06/24 04:54 52 L 15 99 08/06/24 04:33 58 L 14 92 08/06/24 04:30 98/54 L 08/06/24 04:30 98/54 L 08/06/24 04:27 55 L 21 95 08/06/24 04:09 54 L 14 94 08/06/24 04:00 36.7 C 114/56 L 08/06/24 03:57 51 L 22 97 08/06/24 03:30 113/58 L 08/06/24 03:18 58 L 17 94 08/06/24 03:06 65 12 98 08/06/24 03:02 95/50 L 08/06/24 02:51 61 20 93 08/06/24 02:33 59 L 14 94 08/06/24 02:30 90/50 L 08/06/24 02:30 90/50 L 08/06/24 02:27 58 L 14 94 08/06/24 02:00 55 L 15 95 08/06/24 01:48 57 L 18 96 (1) Carotid stenosis Laterality: right Qualified Code(s): I65.21 - Occlusion and stenosis of right carotid artery
--- NOTE | 2024-08-06 13:55 | Discharge Summary ---
"Date of Service August 06, 2024 Admission HPI Per Admitting Provider Chief Complaint Rm 1. New patient, carotid stenosis. Had US done [facility] 06/15. Reason for Consultation Right carotid artery stenosis History of Present Illness I had the pleasure of seeing Belkys today for evaluation of carotid disease. As you know she is a 83-year-old female who was found to have a significant narrowing of the right internal carotid artery on the CT scan of soft tissue of her neck. She has had thyroid surgery in the past as well as neck radiation. She also had breast cancer with radiation. She denies any previous CVAs or TIAs. She claims this was an incidental finding on her CT scan. Review of Systems 10 systems were reviewed. The only positive findings are per the HPI. Physical Exam Vitals & Measurements BP: 132/76 SpO2: 99% WT: 68.5 kg WT: 68.500 kg (Dosing) Input and Output - Last 24 hours (Last 8 hours) No I/O Data Found: On exam she is awake alert and oriented x 3. Her blood pressure is 126/84 on the left and 132/76 on the right. She is in no apparent distress. Radials and carotids are +2 bilaterally. There is a soft right carotid bruit. Lungs are clear and her heart had a regular rate and rhythm. Abdominal sounds benign. F emorals are +2 and pedal pulses are +1 bilaterally. Neurologic exam is intact to motor and sensory function. Diagnostic Results Her CT scan does suggest a significant narrowing of the right internal carotid artery at the internal carotid artery origin which appears to be 80% or greater. Assessment/Plan Bilateral carotid artery stenosis We will obtain a CT angiogram of her carotid arteries to better define her carotid lesion. If this is indeed significant narrowing then we will consider intervention and hopefully a TCAR rather than endarterectomy. We will keep you informed as to her follow-ups. Thank you very much for letting us participate in the care of this patient. Sincerely, Pam Ragsdale MD This point with a narrowing greater than 80% recommended intervention on the right carotid. We went over the risks options benefits of carotid endarterectomy versus TCAR. She does have residual hoarseness from thyroid surgery which she has had which she believes involves the right vocal cord. At this point she elected to go with a TCAR which gives her less chance of worsening her hoarseness. The risks options benefits this procedure are documented in the consent form. No requirements for this TCAR I did she be on a statin, Plavix, and a baby aspirin. She is not on any of these. The scripts were sent to her pharmacy and she will start them tomorrow. Will then arrange for Plavix testing to see if she is a responder to the Plavix. If she is a nonresponder then we will have to switch her to Brilinta. Will try to get her surgery scheduled in the next 2 to 3 weeks. Body mass index [BMI] 27.0-27.9, adult Attestation I have personally spent __50___ minutes performing byvb-iv-evyh and xet-ftmt-rx-face activities on this date of service. Activities Include: _x_ review of the medical record _x_ obtaining a history _x_ physical exam/evaluation __ review labs _x_ review radiology reports _x_ counseling/educating patient/family/caregiver __ discussion/referral to other healthcare professional _x_ documenting care in the medical record _x_ independent interpretation of results _ct @____[facility] __ communication of results to patient/family/caregiver __ coordination of care Problem List/Past Medical History Ongoing Abdominal wall strain AC joint arthropathy Allergies Arthritis of right glenohumeral joint Asthma Biceps tendinopathy Chronic cholecystitis Chronic kidney disease (CKD), stage III (moderate) Dentures complicating chewing Diarrhea Diverticulosis Enthesopathy of foot Family hx of colon cancer Female stress incontinence Hearing loss Hip flexor tendonitis History of palpitations History of sleep apnea HTN (hypertension) Hx of breast cancer Hx of thyroid cancer Hyperlipidemia Hypocalcemia Hypomagnesemia Hypothyroidism Irregular heart beats Lumbar facet arthropathy Lumbar scoliosis Osteopenia Prolonged QT interval Pseudogout PVC (premature ventricular contraction) Renal cyst Restless leg syndrome Right foot pain Right lumbar radiculopathy Rotator cuff tendinitis Sacroiliitis Sleep apnea Spondylolisthesis of lumbar region Spondylolisthesis, lumbosacral region 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 Vitamin D deficiency Resolved Breast cancer Procedure/Surgical History Mammogram| Service Date: 02/05/2023 Chest x-ray| Service Date: 11/07/2022 Pathology report| Service Date: 09/04/2022 Arthroscopy of shoulder| Service Date: 09/04/2022 Ultrasound of the mesenteric vasculature| Service Date: 05/16/2022 Mammogram - localization| Service Date: 01/31/2022 Diagnostic colonoscopy| Service Date: 01/16/2022 KUB X-ray| Service Date: 11/08/2021 Small bowel series--follow through| Service Date: 10/25/2021 CT angiogram of thorax, abdomen and pelvis with contrast| Service Date: 10/19/2021 CT of abdomen and pelvis without contrast| Service Date: 10/11/2021 Plain X-ray of right humerus| Service Date: 03/01/2021 Bone density scan| Service Date: 11/01/2020 Chest x-ray| Service Date: 06/15/2020 Eye examination| Service Date: 11/11/2019 Chest X-ray 2V PA/lateral| Service Date: 07/14/2019 Mammogram| Service Date: 02/11/2019 Nerve blocks in cervical region| Service Date: 12/31/2018 Denervation of joint| Service Date: 12/04/2018 Diagnostic mammogram| Service Date: 02/05/2018 Ultrasound scan of lower abdomen| Service Date: 01/03/2018 Ultrasound--RLQ| Service Date: 11/29/2017 X-ray of thoracic spine| Service Date: 11/29/2017 X-ray of thoracic spine| Service Date: 11/29/2017 Colonoscopy| Service Date: 11/20/2017 MRCP - Magnetic resonance cholangiopancreatography| Service Date: 11/07/2017 Laparoscopic cholecystectomy| Service Date: 04/01/2017 US EXAM ABDOM COMPLETE| Service Date: 03/23/2017 Mammogram| Service Date: 02/04/2017 DXA BONE DENSITY STUDY| Service Date: 12/25/2016 Echocardiogram| Service Date: 08/06/[address]| Service Date: 09/06/2015 Holter monitor EXCISION OF UVULA History of nasal sinus surgery Lumpectomy Tonsillectomy Knee arthroplasty Knee arthroplasty Hysterectomy Thyroidectomy APPENDECTOMY Injection into joint Medications Home celecoxib(CeleBREX 200 mg oral capsule), 200 mg= 1 cap, PO, Daily, PRN, 3 refills cholecalciferol(Vitamin D3 2000 intl units oral capsule) dicloxacillin(dicloxacillin 500 mg oral capsule), 500 mg= 1 cap, PO, qid fluticasone(Flovent HFA 220 mcg/inh MDI), 1 puff, inhaled, bid, 1 refills levocetirizine(Xyzal 5 mg oral tablet), 5 mg= 1 tab, PO, Daily, PRN levothyroxine(levothyroxine 100 mcg (0.1 mg) oral tablet), 1 tab, PO, Daily multivitamin with minerals(Centrum Silver oral tablet), 1 tab, PO, Daily olmesartan(olmesartan 20 mg oral tablet), 20 mg= 1 tab, PO, Daily, 1 refills Allergies Arimidex muscle spasms Ipratropium Dennis sore throat , nose bleeds anastrozole Drug-induced nausea and vomiting enoxaparin Nausea and vomiting exemestane muscle spasms Social History Smoking Status Never smoked cigarettes Alcohol - No Risk Tobacco - Denies Tobacco Use Family History Brain cancer......: Father. Breast cancer: Sister, MGM and Paternal Uncle. Cancer: Father and Unknown. Cancer of colon: Mother, Brother and Unknown. Coronary artery disease: MGM. Heart attack: Sister, Brother and MGF. Heart disease: Brother. Lung cancer......: Sister. Malignant tumor of lung: Sister. Ovarian cancer......: Mother and PGM. Type II diabetes mellitus: Sister. Health Status Family Member(s) Immunizations Vaccine Date Status SARS-CoV-2 (COVID-19) mRNA-vacc - [id number] 06/11/2023 Recorded influenza virus vaccine, inactivated 05/21/2023 Given influenza virus vaccine, inactivated 07/02/2022 Given SARS-CoV-2 (COVID-19) mRNA-1273 vaccine 08/02/2021 Recorded influenza virus vaccine, inactivated 05/31/2021 Given SARS-CoV-2 (COVID-19) mRNA-1273 vaccine 10/21/2020 Recorded SARS-CoV-2 (COVID-19) mRNA-1273 vaccine 09/23/2020 Recorded pneumococcal 23-valent vaccine 08/23/2020 Given tetanus/diphtheria/pertuss, acel (Tdap) 08/28/2016 Recorded Signature Line Electronic Signature on File Jmaie Ragsdale MD Author Signature Dt/Tm: 07/06/2024 03:02 PM Complex Human Resources Manager Kennedy Barbosa [facility] [address], [address] [place] [address] EJS Result Type: .Outpt Ltr Date of Service: July 06, 2024 14:58 EST Authorization Status: Final Subject: Consult Note Author or Import Date: MD Ragsdale Eugene J on July 06, 2024 15:02 EST Verified By: MD Ragsdale Eugene J on July 06, 2024 15:02 EST Encounter info: [id number], [place] [id number], Clinic, 07/06/2024 - 07/06/2024 Admission Exam Per Admitting Provider On exam she is awake alert and oriented x 3. Her blood pressure is 126/84 on the left and 132/76 on the right. She is in no apparent distress. Radials and carotids are +2 bilaterally. There is a soft right carotid bruit. Lungs are clear and her heart had a regular rate and rhythm. Abdominal sounds benign. Femorals are +2 and pedal pulses are +1 bilaterally. Neurologic exam is intact to motor and sensory function. Principal Diagnosis Right internal carotid artery stenosis Discharge Exam Constitutional WD/WN, vitals as above Neck trachea midline Respiratory normal respiratory effort and + respiratory distress Cardiovascular Rate/Rhythm: regular rate and regular rhythm Skin + incision (mild ecchymosis present) Neurologic CN's II-XI intact bilaterally and moves all extremities Psychiatric A+Ox3, euthymic affect Discharge Data Allergies Allergy/AdvReac Type Severity Reaction Status Date / Time anastrozole Allergy Severe Osteoporosis, Verified 08/04/24 06:41 muscle aches exemestane Allergy Severe Osteoporosis, Verified 08/04/24 06:41 muscle aches adhesive Allergy Intermediate Skin Verified 08/04/24 06:41 irritation (some tapes/bandaids) Consultations 08/04/24 12:53 Consult Body Presser Routine Procedures Performed Operation Date: 08/04/24 08:40 Actual Procedures p Right Transcarotid Artery Revascularization, Ultrasound of Left Common Femoral Vein(Right) - Jamie Ragsdale MD Ordered Studies 08/04/24 07:15 EV angio carotid cerv RT Routine US EV guide vascular access Routine Hospital Course (1) Carotid stenosis: Patient POD 2 from a right tcar. Doing well. Will D\\C today (2) Hypotension after procedure: Off of phenylephrine drip. Hypotension resolved Total Time Total Time Spent Total Time Spent (In Minutes): x Discharge Plan Discharge Items Patient Disposition: Home - Self-Care Reason For Visit: Occlusion and Stenosis of Bilateral Artery Discharge Diagnosis: Right internal carotid artery stenosis Activity: Per Instructions section Non-emergency contact: Surgeon Call non-emergency contact if: your temperature is above 101.5, your wound has increased redness, your wound has increased drainage and your wound pain has increased Follow-up/Referrals: Kell Jorge [Primary Care Provider] - Diet: Heart Healthy Addtl Attending Provider Instructions: SPECIAL CARE INSTRUCTIONS: Diet: * You may return to previous diet. Medications: * Continue to take Aspirin, Plavix, and statin as directed. Continue midodrine until seen in office for follow up visit Incision Care: * You may shower, but do not rub incision. You may let the warm soapy water run over it. Be sure to dry the incision well after bathing. * Do not shave directly over the incision until it is healed. * DO NOT IMMERSE THE INCISION IN A TUB/POOL/etc. UNTIL HEALED. Restrictions: * Do not drive for at least one week or if you are still taking any narcotic pain medication. * Do not lift anything heavier than a gallon of milk for one week after going home. Possible Complications: * Numbness - It is normal to have some numbness around the incision. Numbness can extend beyond the incision to areas of the neck, ear and face. The numbness is due to bruising of nerves during the surgery and will gradually improve over a period of months. * Hoarseness/Difficulty Speaking and Swallowing - The bruising of nerves in the neck can also cause a hoarse voice, difficulty speaking or swallowing. This may improve over time, HOWEVER, if it continues for more than a few days please contact our office ([phone]). * Excessive Swelling - There will be some swelling immediately after surgery which usually resolves within one week. If you notice that the swelling is getting worse, notify your surgeon ([phone]). * Drainage/Bleeding - If there is any drainage or bleeding, it should be a very small amount (less than a teaspoon per day). If you have excessive bleeding or drainage from the incision, call your surgeon ([phone]) right away. ACTIVATION OF EMERGENCY MEDICAL SYSTEM: Call 911, immediately, if you experience any of the following: Warning Signs and Symptoms of Stroke: * Sudden numbness or weakness of the face, arm or leg, especially on one side of the body * Sudden confusion, trouble speaking or understanding * Sudden trouble seeing in one or both eyes * Sudden trouble walking, dizziness, loss of balance or coordination * Sudden severe headache with no cause Do not delay calling 911 if you experience any warning signs or symptoms of a stroke. Delay in seeking medical attention may affect what treatments can be given to you. Risk Factors for Stroke: You can reduce your chances of stroke by working with your medical provider to adopt a healthy lifestyle. Some specific ways to lower your chance of stroke are: * If you are a smoker, now is the time to stop smoking cigarettes * If you are diabetic, improve the control of your blood sugars * Avoid excessive amounts of alcohol * Control high blood pressure * Lose weight if you are overweight * Be sure to lead an active lifestyle * Eat a healthy diet low in salt, cholesterol and fat You should know about other risk factors for stroke that you are unable to control. These include: * Age 55 years or older * Male gender * Certain racial groups: , or / * Family History of Stroke, Mini stroke or Heart Attack * Sickle Cell Disease You will be receiving a call from the Vascular Surgery Nurse after you are discharged. FOLLOW UP VISIT: It is important for you to keep your follow up appointments with your medical provider. Keep any scheduled doctor appointments. Call [phone] to schedule a follow up appointment if one not already scheduled. Pending Studies at Discharge: No Stand-Alone Forms: My [employer], Smoking Cessation Medications and DC Order Prescriptions: New oxycodone-acetaminophen [Percocet] 5-325 mg Tablet 1 tab PO Q4H PRN (Reason: pain) Qty: 7 0RF midodrine 2.5 mg Tablet 5 mg PO TID@0800,1200,1700 Qty: 24 0RF Continued cholecalciferol (vitamin D3) [Vitamin D3] 50 mcg (2,000 unit) capsule 2,000 unit PO QPM Centrum Silver Women 8 mg iron-400 mcg-300 mcg tablet 1 tab PO QPM vitamin B complex Capsule 1 cap PO UD Patient Comments: SAT AND SAT Rx Instructions: saturday and saturday levothyroxine [Synthroid] 100 mcg tablet 100 mcg PO QAM Patient Comments: TAKES IN AM pramipexole 1 mg tablet 1 mg PO HS Rx Instructions: TAKE 1 TABLET BY MOUTH AT BEDTIME levocetirizine 5 mg tablet 5 mg PO DAILY PRN (Reason: Allergy Symptoms) Rx Instructions: TAKE 1 TABLET BY MOUTH ONCE DAILY IF NEEDED for allergy relief olmesartan 20 mg tablet 20 mg PO HS celecoxib [Celebrex] 200 mg Capsule 200 mg PO DAILY PRN (Reason: Pain) atorvastatin [Lipitor] 80 mg Tablet 80 mg PO QAM clopidogrel [Plavix] 75 mg Tablet 75 mg PO QAM aspirin 81 mg Capsule 81 mg PO QAM Discharge Orders: Discharge Order (Routine); Ordered 08/06/24 Ordered By: Jamie Ragsdale Admission Data Admit Date/Time: 08/04/24 07:31 Attending Provider: Jamie Ragsdale Admit Provider: Jamie Ragsdale Primary Care Provider: Kell Jorge Other Providers: Chaz Jiménez; Jatin Haynes; Jared Batista; Hernan Atkins; Husam Ackerman; Vaughn Lara; Scotty Fletcher; Aida Cruz; Velma Faye; Umair Kahn; Stewart Velazquez; Tyra Dee"
[2024-08-06 14:17] VITALS: BP 123/67; PULSE 52; RESP 19; O2SAT 95
== END 2024-08-06 15:00 | disposition home or self-care (01) | DRG 36 ==
LOC: ASU 06:09 → 1E 07:31
PROC: EV.TCAR (2024-08-04 08:40)

== ENCOUNTER 2024-08-28 12:24 | Observation (INO) ==
--- NOTE | 2024-08-28 12:51 | Emergency Department Note ---
Impression & Plan Blurred vision, bilateral, HTN (hypertension), Headache ED Provider Note NAME: NNAMDI YEPEZ AGE: 84 SEX: F : 1940 ARRIVES VIA: Walk-In INFORMANT: Patient ED PROVIDER(S): Art Limon DO CHIEF COMPLAINT: Headache, blurry vision elevated blood pressure HPI: Patient is an 84-year-old female with a past medical history of carotid stenosis with surgery performed by Dr. Ragsdale on her right carotid 3 weeks ago who presents to the ER for blurry vision bilaterally out of both eyes that has been present for the past 2 to 3 days. Admits to intermittent headaches over the same duration which last for several seconds at a time. Denies any weakness or numbness in the arms or legs. No chest pain or shortness of breath. No belly pain, nausea, vomiting, or diarrhea. No dysuria, urgency, or frequency. No other exacerbating or remitting factors. ADDITIONAL HISTORY OBTAINED: Per HPI Chronic Medical/Social Conditions Affecting Care: Per HPI PAST MEDICAL HISTORY:See Below PAST SURGICAL HISTORY:See Below FAMILY HISTORY:See Below SOCIAL HISTORY:See Below HOME MEDICATIONS:See Below ALLERGIES:See Below VITALS:See Below PHYSICAL EXAMINATION: GENERAL: Sitting up in bed, alert, well appearing, well nourished, no distress, non-toxic EYE EXAM: normal conjunctiva. OROPHARYNX: no exudate, no erythema, lips, buccal mucosa, and tongue normal and mucous membranes are moist NECK: supple, no nuchal rigidity, no adenopathy, non-tender LUNGS: Clear to auscultation. Normal chest wall mechanics HEART: no murmurs, S1 normal and S2 normal ABDOMEN: abdomen soft, non-tender, normo-active bowel sounds, no masses, no rebound or guarding. BACK: Back is symmetrical on inspection and there is no deformity, no midline tenderness, no CVA tenderness. SKIN: no rashes and no bruising UPPER EXTREMITIES: upper extremities are grossly normal. LOWER EXTREMITIES: No pitting edema. NEURO EXAM: Normal sensorium, cranial nerves II-XII grossly intact, normal speech, no gross weakness of arms, no gross weakness of legs. MEDICAL DECISION MAKING: Patient is an 84-year-old female who presents to the ER for the above-stated complaint. Per review of external records from 08/04/2024 patient had a right sided TCAR performed by Dr. Ragsdale here at [facility]. Since being discharged with the past 2 days she has had blurry vision. Blood pressures are 190s. Discussed with Dr. Ragsdale and he notes that as long as blood pressures are above 100 that is okay with the recent surgery. As she is symptomatic we did elect to give her labetalol. Blood pressures did trend down to 170s. She is completely neurologically intact. Labs showed no significant leukocytosis or anemia. BMP along with LFTs bilirubin and troponin was negative. Lipase is unremarkable. CT angios of the head and neck were clean. Patient was discussed with the hospitalist for further evaluation management treatment. Consults/Care Managements Discussions: Per [facility] Triage Nursing notes reviewed. Limited review of prior medical records performed Vital Signs: reviewed and remarkable for HTN Differential diagnosis: Differential Diagnosis includes but is not limited to ischemic Stroke, hemorrhagic stroke, bells palsy, mass, neoplasm, migraine headache, seizure, subarachnoid hemorrhage, TIA, and transient global amnesia. ER treatment provided: See below Diagnostics interpreted by me include EKG and cardiac monitoring as listed below: -Cardiac Monitoring: An order was placed for continuous cardiac monitoring. The monitor shows a rate of 80 with sinus rhythm. -ECG: Sinus rhythm rate of 97 Normal axis No PVCs QTc 454 -Laboratory studies:Interpreted by me as stated above in MDM and shown below. Imaging studies: Xrays: As interpreted by me: Portable AP upright 1 view of the chest shows no focal infiltrate CTs show: CT angios of the head and neck was negative Procedures:none Critical Care: None Past Med/Surg History Problem List (Updated 08/28/24 @ 17:52 by Art Lmion DO) Headache (Acute) HTN (hypertension) (Acute) Blurred vision, bilateral (Acute) Fatigue Blurry vision Carotid stenosis LPRD (laryngopharyngeal reflux disease) Presbylarynx Dysphonia Pain in right axilla Chronic issue, unchanged/at baseline Allergic rhinitis Chronic sinusitis Restrictive lung disease Multiple pulmonary nodules Restless leg syndrome Hypothyroidism, postablative (Acute) SULLIVAN (dyspnea on exertion) PVC (premature ventricular contraction) Follows with Dr Tierney, no current/recent issues Palpitations Hypercholesterolemia Pulmonary nodule History of breast cancer Right, 2013- s/p xrt/chemo/lumpectomy Asthma (Chronic) Hypertension (Chronic) Medical History (Updated 08/28/24 @ 17:52 by Art Limon DO) Hypotension after procedure Limb alert care status right arm restriction PVC (premature ventricular contraction) Follows with Dr Tierney, no current/recent issues Carotid stenosis HX: breast cancer Right, 2013- s/p xrt/chemo/lumpectomy-right arm restriction Chronic hoarseness Neck mass resolved per pt Hypothyroidism (acquired) CKD (chronic kidney disease) Per records Chronic nasal discharge Chronic post-nasal drip (chronic/intermittent sore throat r/t post-nasal drip) Restless leg syndrome Hypertension controlled, stable per pt Asthma pt denies "not really, I did years ago" no inhalers History of thyroid cancer 1996- s/p radioactive iodine/thyroidectomy Hearing deficit B/L hearing aids Hyperlipidemia Sleep apnea "Mild"- s/p UPPP Has not used device since recalled Fall 2020 (has not received information regarding new device) Surgical History (Updated 08/28/24 @ 16:55 by Cortez Blanco PA-C) History of right shoulder replacement History of uvulopalatopharyngoplasty Hx of arthroscopy of shoulder Right Shoulder Arthroscopy, Subacromial Decompression, Distal Clavicle Excision (09/04/22): Grade 2 view, ETT 7.0 + regional at [facility] History of esophagogastroduodenoscopy (EGD) History of revision of total replacement of left knee joint x2 History of prosthetic unicompartmental arthroplasty of left knee History of revision of total replacement of right knee joint History of cataract surgery R/L History of surgery Right sacroiliac joint cooled denervation History of tooth extraction History of tonsillectomy and adenoidectomy History of sinus surgery History of total abdominal hysterectomy and bilateral salpingo-oophorectomy History of cholecystectomy History of appendectomy History of colonoscopy Status post biopsy of thyroid gland History of breast biopsy History of lumpectomy of right breast History of thyroidectomy, total History of knee replacement R/L Family History Mother Family history of reaction to anesthesia Slow to wake Sister Family history of reaction to anesthesia Sister had reaction to medications used with surgery but does not have further details to provide/unknown reaction. Denies family or personal hx of MH or pseudocholinesterase deficiency. Hypertension Stroke Sister Family history of diabetes mellitus Grandfather (Maternal) Family hx of colon cancer Brother Family hx of colon cancer Hypertension Mother Family hx of colon cancer Grandfather Hypertension Son Asthma Other FHx: brain cancer FHx: leukemia FHx: lung cancer Heart disease Social History Smoking Status: Never smoker Second Hand Exposure: Yes (hx); Do You Dip or Chew Tobacco: No; Hx Alcohol Use: Yes Alcohol type: wine Hx Substance Use: No Preferred Language: Greek Communication Ability: Effective Materials Clerk Required: No Beliefs That Will Affect Care: None Current Living Situation: Spouse Feels Safe at Home: Yes Assistive Devices: None Allergies Allergies Allergy/AdvReac Type Severity Reaction Status Date / Time anastrozole Allergy Severe Osteoporosis, Verified 08/04/24 06:41 muscle aches exemestane Allergy Severe Osteoporosis, Verified 08/04/24 06:41 muscle aches adhesive Allergy Intermediate Skin Verified 08/04/24 06:41 irritation (some tapes/bandaids) Home Meds Home Medications Medication Instructions Recorded Confirmed cholecalciferol (vitamin D3) 50 2,000 unit PO QPM 07/25/20 08/28/24 mcg (2,000 unit) capsule (Vitamin D3) vitamin B complex 1 cap PO UD 01/11/22 08/28/24 levothyroxine 100 mcg tablet 100 mcg PO QAM 05/16/22 08/28/24 (Synthroid) [id number] 8 mg-folic 400 1 tab PO QPM 05/16/22 08/28/24 mcg-K 50 mcg-lutein 300 mcg tablet (Centrum Silver Women) levocetirizine 5 mg tablet 5 mg PO DAILY PRN Allergy Symptoms 11/07/23 08/28/24 pramipexole 1 mg tablet 1 mg PO HS 11/07/23 08/28/24 aspirin 81 mg capsule 81 mg PO QAM 07/16/24 08/28/24 atorvastatin 80 mg tablet (Lipitor) 80 mg PO QAM 07/16/24 08/28/24 celecoxib 200 mg capsule (Celebrex) 200 mg PO DAILY PRN Pain 07/16/24 08/28/24 clopidogrel 75 mg tablet (Plavix) 75 mg PO QAM 07/16/24 08/28/24 olmesartan 20 mg tablet 20 mg PO HS 07/16/24 08/28/24 Previous Rx's Medication Instructions Recorded midodrine 2.5 mg tablet 5 mg (2 x 2.5 mg) PO 08/06/24 TID@0800,1200,1700 #24 tabs oxycodone-acetaminophen 5 mg-325 1 tab PO Q4H PRN pain #7 tabs 08/06/24 mg tablet (Percocet) Results & Data (ED) Vital Signs Vital Signs - 24 hr 08/28/24 12:28 08/28/24 13:00 08/28/24 13:00 Temperature 36.2 C L Temperature Source Temporal Artery Scan Pulse Rate 86 Pulse Rate from SpO2 Sensor Respiratory Rate 18 Respiratory Effort / Characteristics Non-Labored Respiratory Depth Normal Respiratory Pattern Regular Blood Pressure 178/111 H 183/110 H 183/110 H Blood Pressure Mean 133 137 137 Pulse Oximetry 98 Oxygen Delivery Method Room Air Sepsis Recent Fever Within 48 Hours No Sepsis New/Unexplained Change in Mental Status N/A Sepsis Action Taken by Nursing No Action Required 08/28/24 13:00 08/28/24 13:00 08/28/24 13:18 Temperature Temperature Source Pulse Rate 91 H 93 H Pulse Rate from SpO2 Sensor 87 Respiratory Rate 25 H Respiratory Effort / Characteristics Respiratory Depth Respiratory Pattern Blood Pressure 183/110 H Blood Pressure Mean 137 Pulse Oximetry 96 Oxygen Delivery Method Sepsis Recent Fever Within 48 Hours Sepsis New/Unexplained Change in Mental Status Sepsis Action Taken by Nursing 08/28/24 13:30 08/28/24 14:00 08/28/24 15:06 Temperature Temperature Source Pulse Rate 85 82 84 Pulse Rate from SpO2 Sensor 82 85 Respiratory Rate 17 17 20 Respiratory Effort / Characteristics Respiratory Depth Respiratory Pattern Blood Pressure 177/112 H 184/101 H 181/107 H Blood Pressure Mean 139 125 131 Pulse Oximetry 96 96 97 Oxygen Delivery Method Sepsis Recent Fever Within 48 Hours Sepsis New/Unexplained Change in Mental Status Sepsis Action Taken by Nursing 08/28/24 15:24 08/28/24 15:58 08/28/24 15:59 Temperature Temperature Source Pulse Rate 85 77 Pulse Rate from SpO2 Sensor 83 Respiratory Rate 22 Respiratory Effort / Characteristics Respiratory Depth Respiratory Pattern Blood Pressure 190/107 H 175/107 H Blood Pressure Mean 134 Pulse Oximetry 98 95 Oxygen Delivery Method Room Air Sepsis Recent Fever Within 48 Hours Sepsis New/Unexplained Change in Mental Status Sepsis Action Taken by Nursing 08/28/24 16:33 Temperature Temperature Source Pulse Rate 82 Pulse Rate from SpO2 Sensor 83 Respiratory Rate 22 Respiratory Effort / Characteristics Respiratory Depth Respiratory Pattern Blood Pressure 175/109 H Blood Pressure Mean 131 Pulse Oximetry 97 Oxygen Delivery Method Sepsis Recent Fever Within 48 Hours Sepsis New/Unexplained Change in Mental Status Sepsis Action Taken by Nursing Laboratory Data 08/28/24 12:55 08/28/24 12:55 Lab Results 08/28/24 Range/Units 12:55 WBC 7.72 (4.8-10.8) K/ul RBC 4.61 (4.20-5.40) M/uL Hgb 13.1 (12.0-16.0) g/dl Hct 39.8 (37.0-47.0) % MCV 86.3 (80.0-100.0) fL MCH 28.4 (25.0-34.0) pg MCHC 32.9 (32.0-36.0) g/dL RDW Std Deviation 47.7 H (36.4-46.3) fL RDW Coeff of Patrice 15.1 H (11.5-14.5) % Plt Count 311 (130-400) K/uL MPV 9.0 L (9.4-12.4) fL Immature Gran % (Auto) 0.3 % Neut % (Auto) 73.5 % Lymph % (Auto) 14.8 % [place] % (Auto) 6.1 % Eos % (Auto) 4.8 % Baso % (Auto) 0.5 % Neut # (Auto) 5.68 (1.40-6.50) K/uL Lymph # (Auto) 1.14 L (1.20-3.40) K/uL [place] # (Auto) 0.47 (0.11-0.59) K/uL Eos # (Auto) 0.37 (0.00-0.50) K/uL Baso # (Auto) 0.04 (0.00-0.20) K/uL Immature Gran # (Auto) 0.02 (0.01-0.20) K/uL Sodium 140 (136-145) mmol/L Potassium 3.6 (3.5-5.1) mmol/L Chloride 103 (98-107) mmol/L Carbon Dioxide 28 (21-32) mmol/L Anion Gap 9 (3-11) BUN 16 (6-23) mg/dl Creatinine 0.85 (0.6-1.2) mg/dl Est Cr Clr Drug Dosing 45.2 ml/min eGFR 67.51 BUN/Creatinine Ratio 18.8 (10-20) Glucose 91 (70-99(Fasting)) mg/dl Calcium 9.5 (8.6-10.3) mg/dl Total Bilirubin 0.5 (0.2-1.0) mg/dl AST 30 (13-39) U/L ALT 17 (7-52) U/L Alkaline Phosphatase 95 (34-104) U/L Troponin I High Sens 3.7 (0-14) pg/ml Total Protein 7.6 (6.0-8.3) gm/dl Albumin 4.3 (3.4-5.0) gm/dl Globulin 3.3 (2.5-4.0) gm/dl Albumin/Globulin Ratio 1.3 (0.9-2) Lipase 42 (11-82) U/L Administered Medications Discontinued Medications Ioversol (Optiray 320 125ml) 112 ml IV ONCE ONE Stop: 08/28/24 14:24 Last Admin: 08/28/24 14:23 Dose: 112 ml Documented By: MOR Labetalol HCl (Labetalol Hcl Iv 5 Mg/Ml 20ml) 10 mg IV NOW STA Stop: 08/28/24 15:39 Last Admin: 08/28/24 15:59 Dose: 10 mg Documented By: LORNA Imaging Data Radiologist's Impression: Chest X-Ray 08/28/24 12:47 XR chest 1V portable CLINICAL HISTORY: Chest pain, nonspecific TECHNIQUE: Single frontal radiograph of the chest was obtained. Comparison: Comparison is made to chest radiograph 11/12/2023 FINDINGS: Right shoulder arthroplasty is seen. The cardiomediastinal silhouette is normal. The lungs are clear. No evidence of pleural effusion or pneumothorax. IMPRESSION: No acute chest disease. ACT 112: Negative or not required by law. Electronically signed by: Juan Manuel Torres M.D. 08/28/2024 1:34 PM Head CTA 08/28/24 12:47 CT angio head wo/w, CT angio neck with con CLINICAL HISTORY: dizzy TECHNIQUE: Contiguous axial CT images of the head were acquired from the base of the skull to the vertex without intravenous contrast administration. CT angiography of the head and neck was performed following intravenous administration of iodinated contrast. Coronal and sagittal MIPS were obtained from the axial data set and were submitted for review. Automated dose lowering techniques and/or adjustment according to patient size were utilized for this examination. All measurements were calculated based on NASCET criteria. CT DOSE: 998.47 mGy.cm Comparison: None available at the time of this dictation. FINDINGS: CT head: There is no acute intracranial hemorrhage or evidence of acute territorial infarction. No shift of the midline structures, mass effect, or extra-axial abnormalities are shown. Lungs and soft tissues are unremarkable. CTA Neck: A 3 vessel aortic arch is shown. There is no significant atherosclerotic plaque in the aortic arch or the origins of the innominate, left common carotid, and left subclavian arteries. The common carotid, external carotid, cervical segments of the internal carotid arteries, and the cervical segments of the vertebral arteries are patent without hemodynamically significant stenosis. The left vertebral artery is dominant. A right internal carotid stent is seen. CTA Head: The anterior and posterior cerebral circulations are patent. origin of the bilateral posterior cerebral arteries noted. IMPRESSION: 1. No acute intracranial hemorrhage, evidence of acute territorial infarction, or other acute intracranial disease process. 2. No occlusion, hemodynamically significant stenosis, or dissection in the major cervical arteries. 3. No occlusion, hemodynamically significant stenosis, aneurysm, dissection, or arteriovenous malformation in the major intracranial arteries. Assessment of stenosis of the internal carotid arteries is based on NASCET criteria. ACT 112: Negative or not required by law. Electronically signed by: Juan Manuel Torres M.D. 08/28/2024 3:11 PM Neck CTA 08/28/24 12:47 CT angio head wo/w, CT angio neck with con CLINICAL HISTORY: dizzy TECHNIQUE: Contiguous axial CT images of the head were acquired from the base of the skull to the vertex without intravenous contrast administration. CT angiography of the head and neck was performed following intravenous administration of iodinated contrast. Coronal and sagittal MIPS were obtained from the axial data set and were submitted for review. Automated dose lowering techniques and/or adjustment according to patient size were utilized for this examination. All measurements were calculated based on NASCET criteria. CT DOSE: 998.47 mGy.cm Comparison: None available at the time of this dictation. FINDINGS: CT head: There is no acute intracranial hemorrhage or evidence of acute territorial infarction. No shift of the midline structures, mass effect, or extra-axial abnormalities are shown. Lungs and soft tissues are unremarkable. CTA Neck: A 3 vessel aortic arch is shown. There is no significant atherosclerotic plaque in the aortic arch or the origins of the innominate, left common carotid, and left subclavian arteries. The common carotid, external carotid, cervical segments of the internal carotid arteries, and the cervical segments of the vertebral arteries are patent without hemodynamically significant stenosis. The left vertebral artery is dominant. A right internal carotid stent is seen. CTA Head: The anterior and posterior cerebral circulations are patent. origin of the bilateral posterior cerebral arteries noted. IMPRESSION: 1. No acute intracranial hemorrhage, evidence of acute territorial infarction, or other acute intracranial disease process. 2. No occlusion, hemodynamically significant stenosis, or dissection in the major cervical arteries. 3. No occlusion, hemodynamically significant stenosis, aneurysm, dissection, or arteriovenous malformation in the major intracranial arteries. Assessment of stenosis of the internal carotid arteries is based on NASCET criteria. ACT 112: Negative or not required by law. Electronically signed by: Juan Manuel Torres M.D. 08/28/2024 3:11 PM Discharge Plan Visit Data Chief Complaint: Hypertension Stated Complaint: HYPERTENSION ED Provider: Art Limon Discharge Problem: Blurred vision, bilateral, HTN (hypertension), Headache Forms Stand Alone Forms: My [employer] Prescriptions Prescriptions: No Action cholecalciferol (vitamin D3) [Vitamin D3] 50 mcg (2,000 unit) capsule 2,000 unit PO QPM Centrum Silver Women 8 mg iron-400 mcg-300 mcg tablet 1 tab PO QPM vitamin B complex Capsule 1 cap PO UD Patient Comments: SAT AND SAT Rx Instructions: saturday and saturday levothyroxine [Synthroid] 100 mcg tablet 100 mcg PO QAM Patient Comments: TAKES IN AM pramipexole 1 mg tablet 1 mg PO HS Rx Instructions: TAKE 1 TABLET BY MOUTH AT BEDTIME levocetirizine 5 mg tablet 5 mg PO DAILY PRN (Reason: Allergy Symptoms) Rx Instructions: TAKE 1 TABLET BY MOUTH ONCE DAILY IF NEEDED for allergy relief olmesartan 20 mg tablet 20 mg PO HS celecoxib [Celebrex] 200 mg Capsule 200 mg PO DAILY PRN (Reason: Pain) atorvastatin [Lipitor] 80 mg Tablet 80 mg PO QAM clopidogrel [Plavix] 75 mg Tablet 75 mg PO QAM aspirin 81 mg Capsule 81 mg PO QAM oxycodone-acetaminophen [Percocet] 5-325 mg Tablet 1 tab PO Q4H PRN (Reason: pain) Qty: 7 0RF midodrine 2.5 mg Tablet 5 mg PO TID@0800,1200,1700 Qty: 24 0RF Referrals Referrals: Kell Jorge [Primary Care Provider] - Discharge Problem: HTN (hypertension) Qualifiers: Hypertension type: unspecified Qualified Code(s): I10 - Essential (primary) hypertension Headache Qualifiers: Headache type: unspecified Headache chronicity pattern: unspecified pattern I ntractability: not intractable Qualified Code(s): R51.9 - Headache, unspecified
--- NOTE | 2024-08-28 13:36 | XRay Report ---
XR chest 1V portable CLINICAL HISTORY: Chest pain, nonspecific TECHNIQUE: Single frontal radiograph of the chest was obtained. Comparison: Comparison is made to chest radiograph 11/12/2023 FINDINGS: Right shoulder arthroplasty is seen. The cardiomediastinal silhouette is normal. The lungs are clear. No evidence of pleural effusion or pneumothorax. IMPRESSION: No acute chest disease. ACT 112: Negative or not required by law. Electronically signed by: Juan Manuel Torres M.D. 08/28/2024 1:34 PM
[2024-08-28 13:53] LABS: Basophils # (auto) 0.04 K/uL (0.00-0.20); Basophils % (auto) 0.5 %; Eosinophils # (auto) 0.37 K/uL (0.00-0.50); Eosinophils % (auto) 4.8 %; Hematocrit (blood only) 39.8 % (37.0-47.0); Hemoglobin 13.1 g/dl (12.0-16.0); Immature Granulocytes # (auto) 0.02 K/uL (0.01-0.20); Immature Granulocytes % (auto) 0.3 %; Lymphocytes # (auto) 1.14 K/uL (1.20-3.40); Lymphocytes % (auto) 14.8 %; Mean Corpuscular Hemoglobin 28.4 pg (25.0-34.0); Mean Corpuscular Hgb Conc 32.9 g/dL (32.0-36.0); Mean Corpuscular Volume 86.3 fL (80.0-100.0); Monocytes # (auto) 0.47 K/uL (0.11-0.59); Monocytes % (auto) 6.1 %; Neutrophils # (auto) 5.68 K/uL (1.40-6.50); Neutrophils % (auto) 73.5 %; Platelet Count 311 K/uL (130-400); RDW Coefficient of Variation 15.1 % (11.5-14.5); RDW Standard Deviation 47.7 fL (36.4-46.3); Red Blood Count 4.61 M/uL (4.20-5.40); White Blood Count 7.72 K/ul (4.8-10.8)
[2024-08-28 14:17] LABS: Albumin Globulin Ratio 1.3 (0.9-2); Albumin Level 4.3 gm/dl (3.4-5.0); BUN Creatinine Ratio 18.8 (10-20); Bilirubin,Total 0.5 mg/dl (0.2-1.0); Calcium 9.5 mg/dl (8.6-10.3); Creatinine Clr Calc Pharmacy 45.2 ml/min; Globulin 3.3 gm/dl (2.5-4.0); Potassium 3.6 mmol/L (3.5-5.1); Total Protein 7.6 gm/dl (6.0-8.3)
[2024-08-28 14:23] LABS: Troponin I High Sensitivity 3.7 pg/ml (0-14)
[2024-08-28] MEDS: OPTIRAY 320 125ml IV ONE (14:23)
--- NOTE | 2024-08-28 15:12 | CT Scan Report ---
CT angio head wo/w, CT angio neck with con CLINICAL HISTORY: dizzy TECHNIQUE: Contiguous axial CT images of the head were acquired from the base of the skull to the alexandra sacha without intravenous contrast administration. CT angiography of the head and neck was performed f ollowing intravenous administration of iodinated contrast. Coronal and sagittal MIPS were obtained fr om the axial data set and were submitted for review. Automated dose lowering techniques and/or adjus tment according to patient size were utilized for this examination. All measurements were calculated based on NASCET criteria. CT DOSE: 998.47 mGy.cm Comparison: None available at the time of this dictation. FINDINGS: CT head: There is no acute intracranial hemorrhage or evidence of acute territorial infarction. No sh ift of the midline structures, mass effect, or extra-axial abnormalities are shown. Lungs and soft tissues are unremarkable. CTA Neck: A 3 vessel aortic arch is shown. There is no significant atherosclerotic plaque in the aor tic arch or the origins of the innominate, left common carotid, and left subclavian arteries. The co mmon carotid, external carotid, cervical segments of the internal carotid arteries, and the cervical segments of the vertebral arteries are patent without hemodynamically significant stenosis. The left vertebral artery is dominant. A right internal carotid stent is seen. CTA Head: The anterior and posterior cerebral circulations are patent. origin of the bilateral posterior cerebral arteries noted. IMPRESSION: 1. No acute intracranial hemorrhage, evidence of acute territorial infarction, or other acute intrac ranial disease process. 2. No occlusion, hemodynamically significant stenosis, or dissection in the major cervical arteries. 3. No occlusion, hemodynamically significant stenosis, aneurysm, dissection, or arteriovenous malfor mation in the major intracranial arteries. Assessment of stenosis of the internal carotid arteries is based on NASCET criteria. ACT 112: Negative or not required by law. Electronically signed by: Juan Manuel Torres M.D. 08/28/2024 3:11 PM
--- NOTE | 2024-08-28 15:27 | Electrocardiogram Report ---
Test Reason : Blood Pressure : */* mmHG Vent. Rate : 97 BPM Atrial Rate : 97 BPM P-R Int : 142 ms QRS Dur : 70 ms QT Int : 358 ms P-R-T Axes : 17 -22 34 degrees QTcB Int : 454 ms Sinus rhythm with occasional Premature ventricular complexes Minimal voltage criteria for LVH, may be normal variant ( R in aVL ) Cannot rule out Anterior infarct , age undetermined Abnormal ECG When compared with ECG of 02-Mar-2024 10:54, (unconfirmed) Premature ventricular complexes are now Present Confirmed by Jose Maria Tierney ([id number]) on 08/28/2024 3:27:37 PM Referred By: Confirmed By: Jose Maria Tierney
[2024-08-28] MEDS: LABETALOL HCL IV 5 MG/ML 20ML IV STA (15:59)
--- NOTE | 2024-08-28 16:52 | History & Physical Report ---
Date of Service August 28, 2024 Assessment & Plan (1) Hypertension: Plan: Patient presented on 08/28 at the behest of her PCP for elevated blood pressure and blurry vision x 24 hours Recent carotid artery surgery with Dr. Ragsdale on 08/04 Patient denies strokelike symptoms; no prior history of stroke Initial head imaging is unremarkable Per MRI department, patient is unable to have a brain MRI performed for 6 weeks following carotid stent placement Repeat head CT ordered for the morning of 08/29 Preoperative echocardiogram on 07/30 revealed LVEF at 60 to 65% with no evidence of ASD, but resolution did not allow for assessment of PFO Limited echo with bubble study ordered, pending Labetalol 5 mg IV PRN Target BP of <180 systolic and <100 diastolic Continue home antihypertensives (2) Blurry vision: Plan: Given patient reports improvement after blood pressure reduction in the ED, suspect elevated BP is contributory TIA/CVA remains in DDx Continue aspirin and Plavix daily Complete stroke workup (as above) (3) Fatigue: Plan: Progressive worsening of generalized fatigue x 3 months TSH ordered, pending Plan Disposition: Observationadmit to PCU telemetry Full code Regular diet VTE PPx: Teds; continue aspirin and Plavix, hold chemical DVT PPx for now History of Present Illness Chief Complaint: Hypertension Primary Care Provider: Altafazalia Luisito Rizvi is a pleasant 84-year-old female with PMH of carotid artery stenosis s/p TCAR, HTN, asthma, breast cancer, restless leg syndrome, chronic status, and restrictive lung disease. She presented on 08/28 at the behest of the vascular surgery clinic for hypertension. Patient recently underwent a TCAR procedure on 08/[address] Ragsdale. On a follow-up appointment today, she reports she had blurry vision over the past 24 hours, and was also experiencing high blood pressure. Blurry vision is in both eyes, however she reports that it has improved significantly since receiving labetalol in the ED. She is unsure when the blurry vision started, but it may have been yesterday or this morning. She denies neck stiffness. No prior history of strokes. She denies any strokelike symptoms such as slurred speech, facial droop, or unilateral deficits. She wears glasses at baseline and last saw her eye doctor 2 weeks ago; she reports that her prescription is currently up-to-date. She has not noticed any rashes on her body or tick bites. No sick contacts. No prior history of A-fib to her knowledge. Her at bedside does report that she has had increased fatigue over the past several months. She denies smoking, tobacco use, or recent alcohol use. ED course: Labetalol 10mg IV ROS: Patient endorses cold-intolerance, lightheadedness, generalized fatigue, blurry vision in both eyes, mild GEE, SULLIVAN, congestion, and dry cough. Patient denies fever, chills, night-sweats, dizziness, slurred speech, facial droop, unilateral deficits, tinnitus, chest pain, chest palpitations, SOB at rest, abdominal pain, N/V/D, changes in urinary/bowel habits, or numbness/tingling in the arms or legs. Allergies Allergy/AdvReac Type Severity Reaction Status Date / Time anastrozole Allergy Severe Osteoporosis, Verified 08/04/24 06:41 muscle aches exemestane Allergy Severe Osteoporosis, Verified 08/04/24 06:41 muscle aches adhesive Allergy Intermediate Skin Verified 08/04/24 06:41 irritation (some tapes/bandaids) Home Medications Medication Instructions Recorded Confirmed Type cholecalciferol (vitamin D3) 50 2,000 unit PO QPM 07/25/20 08/28/24 History mcg (2,000 unit) capsule (Vitamin D3) vitamin B complex 1 cap PO UD 01/11/22 08/28/24 History levothyroxine 100 mcg tablet 100 mcg PO QAM 05/16/22 08/28/24 History (Synthroid) [id number] 8 mg-folic 400 1 tab PO QPM 05/16/22 08/28/24 History mcg-K 50 mcg-lutein 300 mcg tablet (Centrum Silver Women) levocetirizine 5 mg tablet 5 mg PO DAILY PRN Allergy Symptoms 11/07/23 08/28/24 History pramipexole 1 mg tablet 1 mg PO HS 11/07/23 08/28/24 History aspirin 81 mg capsule 81 mg PO QAM 07/16/24 08/28/24 History atorvastatin 80 mg tablet (Lipitor) 80 mg PO QAM 07/16/24 08/28/24 History celecoxib 200 mg capsule (Celebrex) 200 mg PO DAILY PRN Pain 07/16/24 08/28/24 History clopidogrel 75 mg tablet (Plavix) 75 mg PO QAM 07/16/24 08/28/24 History olmesartan 20 mg tablet 20 mg PO HS 07/16/24 08/28/24 History midodrine 2.5 mg tablet 5 mg (2 x 2.5 mg) PO 08/06/24 08/28/24 Rx TID@0800,1200,1700 #24 tabs oxycodone-acetaminophen 5 mg-325 1 tab PO Q4H PRN pain #7 tabs 08/06/24 08/28/24 Rx mg tablet (Percocet) levothyroxine 125 mcg tablet 125 mcg PO DAILYBB 30 days #30 tabs 08/29/24 Rx (Synthroid) Past Med/Surg History Problem List (Updated 08/28/24 @ 17:52 by Art Limon DO) Headache (Acute) HTN (hypertension) (Acute) Blurred vision, bilateral (Acute) Fatigue Blurry vision Carotid stenosis LPRD (laryngopharyngeal reflux disease) Presbylarynx Dysphonia Pain in right axilla Chronic issue, unchanged/at baseline Allergic rhinitis Chronic sinusitis Restrictive lung disease Multiple pulmonary nodules Restless leg syndrome Hypothyroidism, postablative (Acute) SULLIVAN (dyspnea on exertion) PVC (premature ventricular contraction) Follows with Dr Tierney, no current/recent issues Palpitations Hypercholesterolemia Pulmonary nodule History of breast cancer Right, 2013- s/p xrt/chemo/lumpectomy Asthma (Chronic) Hypertension (Chronic) Medical History (Updated 08/28/24 @ 17:52 by Art Limon DO) Hypotension after procedure Limb alert care status right arm restriction PVC (premature ventricular contraction) Follows with Dr Tierney, no current/recent issues Carotid stenosis HX: breast cancer Right, 2013- s/p xrt/chemo/lumpectomy-right arm restriction Chronic hoarseness Neck mass resolved per pt Hypothyroidism (acquired) CKD (chronic kidney disease) Per records Chronic nasal discharge Chronic post-nasal drip (chronic/intermittent sore throat r/t post-nasal drip) Restless leg syndrome Hypertension controlled, stable per pt Asthma pt denies "not really, I did years ago" no inhalers History of thyroid cancer 1996- s/p radioactive iodine/thyroidectomy Hearing deficit B/L hearing aids Hyperlipidemia Sleep apnea "Mild"- s/p UPPP Has not used device since recalled Fall 2020 (has not received information regarding new device) Surgical History (Updated 08/28/24 @ 16:55 by Cortez Blanco PA-C) History of right shoulder replacement History of uvulopalatopharyngoplasty Hx of arthroscopy of shoulder Right Shoulder Arthroscopy, Subacromial Decompression, Distal Clavicle Excision (09/04/22): Grade 2 view, ETT 7.0 + regional at [facility] History of esophagogastroduodenoscopy (EGD) History of revision of total replacement of left knee joint x2 History of prosthetic unicompartmental arthroplasty of left knee History of revision of total replacement of right knee joint History of cataract surgery R/L History of surgery Right sacroiliac joint cooled denervation History of tooth extraction History of tonsillectomy and adenoidectomy History of sinus surgery History of total abdominal hysterectomy and bilateral salpingo-oophorectomy History of cholecystectomy History of appendectomy History of colonoscopy Status post biopsy of thyroid gland History of breast biopsy History of lumpectomy of right breast History of thyroidectomy, total History of knee replacement R/L Family History Mother Family history of reaction to anesthesia Slow to wake Sister Family history of reaction to anesthesia Sister had reaction to medications used with surgery but does not have further details to provide/unknown reaction. Denies family or personal hx of MH or pseudocholinesterase deficiency. Hypertension Stroke Sister Family history of diabetes mellitus Grandfather (Maternal) Family hx of colon cancer Brother Family hx of colon cancer Hypertension Mother Family hx of colon cancer Grandfather Hypertension Son Asthma Other FHx: brain cancer FHx: leukemia FHx: lung cancer Heart disease Social History Smoking Status: Never smoker Second Hand Exposure: No; Do You Dip or Chew Tobacco: No; Tobacco Cessation Education Requested by Patient: No Hx Alcohol Use: Yes Alcohol type: wine Hx Substance Use: No Preferred Language: Czech Communication Ability: Effective Ship Keeper Required: Voice Beliefs That Will Affect Care: None Current Living Situation: Spouse Other Information That Helps Us Care for You: No Feels Safe at Home: Yes Safety Concerns: Feels Safe At This Time Assistive Devices: None Review of Systems Review of Systems: See HPI above Physical Exam Physical Exam: General: no acute distress; pleasant affect; at bedside; non-toxic appearing; frail appearing; cooperative; SpO2 97% on RA HEENT: normocephalic, atraumatic; no scleral icterus; PERRLA w/ EOMs intact; vision and hearing intact Neck: supple; trachea midline; surgical site on the right lower neck without signs of erythema, drainage, or infection Skin: warm, dry without signs of tenting; no cyanosis; no rashes, bruising, lesions, or erythema noted CV: chest wall NTP; RRR; S1/S2 normal; no murmurs/rubs/gallops; pulses intact and symmetric at radial, DP, and PT Lungs: no acute respiratory distress; symmetrical chest wall expansion; clear breath sounds across all lung bowman w/o adventitious sounds; no wheezing ABD: Soft, NTP; BS present; no rebound/guarding; no distention MSK: no tics or fasciculations; no edema noted in the LEs b/l, nonerythematous; 5/5 continuous improvement engineer strength bilaterally; patient demonstrates ability to wiggle toes/plantarflex/dorsiflex/lift legs bilaterally without unilateral deficits Neuro: A&Ox3; normal mood and affect; fluent speech; no facial droop; no focal deficits appreciated; negative pronator drift; patient reports that sensation is intact and symmetric in the face, upper extremities, and lower extremities bilaterally Results & Data Results & Data Vital Signs (Past 12 Hours) Vital Signs Temp Pulse Resp BP Pulse Ox O2 Del Method 08/28/24 15:59 77 175/107 H 08/28/24 15:58 95 Room Air 08/28/24 14:00 82 17 184/101 H 96 08/28/24 13:30 85 17 177/112 H 96 08/28/24 13:18 93 H 08/28/24 13:00 91 H 25 H 96 08/28/24 13:00 183/110 H 08/28/24 13:00 183/110 H 08/28/24 13:00 183/110 H 08/28/24 12:28 36.2 C L 86 18 178/111 H 98 Room Air Laboratory Results Abnormal lab results 08/28/24 Range/Units 12:55 RDW Std Deviation 47.7 H (36.4-46.3) fL RDW Coeff of Patrice 15.1 H (11.5-14.5) % MPV 9.0 L (9.4-12.4) fL Lymph # (Auto) 1.14 L (1.20-3.40) K/uL Diagnostic Findings Chest X-Ray 08/28/24 12:47 XR chest 1V portable CLINICAL HISTORY: Chest pain, nonspecific TECHNIQUE: Single frontal radiograph of the chest was obtained. Comparison: Comparison is made to chest radiograph 11/12/2023 FINDINGS: Right shoulder arthroplasty is seen. The cardiomediastinal silhouette is normal. The lungs are clear. No evidence of pleural effusion or pneumothorax. IMPRESSION: No acute chest disease. ACT 112: Negative or not required by law. Electronically signed by: Juan Manuel Torres M.D. 08/28/2024 1:34 PM Head CTA 08/28/24 12:47 CT angio head wo/w, CT angio neck with con CLINICAL HISTORY: dizzy TECHNIQUE: Contiguous axial CT images of the head were acquired from the base of the skull to the vertex without intravenous contrast administration. CT angiography of the head and neck was performed following intravenous administration of iodinated contrast. Coronal and sagittal MIPS were obtained from the axial data set and were submitted for review. Automated dose lowering techniques and/or adjustment according to patient size were utilized for this examination. All measurements were calculated based on NASCET criteria. CT DOSE: 998.47 mGy.cm Comparison: None available at the time of this dictation. FINDINGS: CT head: There is no acute intracranial hemorrhage or evidence of acute territorial infarction. No shift of the midline structures, mass effect, or extra-axial abnormalities are shown. Lungs and soft tissues are unremarkable. CTA Neck: A 3 vessel aortic arch is shown. There is no significant atherosclerotic plaque in the aortic arch or the origins of the innominate, left common carotid, and left subclavian arteries. The common carotid, external carotid, cervical segments of the internal carotid arteries, and the cervical segments of the vertebral arteries are patent without hemodynamically significant stenosis. The left vertebral artery is dominant. A right internal carotid stent is seen. CTA Head: The anterior and posterior cerebral circulations are patent. origin of the bilateral posterior cerebral arteries noted. IMPRESSION: 1. No acute intracranial hemorrhage, evidence of acute territorial infarction, or other acute intracranial disease process. 2. No occlusion, hemodynamically significant stenosis, or dissection in the major cervical arteries. 3. No occlusion, hemodynamically significant stenosis, aneurysm, dissection, or arteriovenous malformation in the major intracranial arteries. Assessment of stenosis of the internal carotid arteries is based on NASCET criteria. ACT 112: Negative or not required by law. Electronically signed by: Juan Manuel Torres M.D. 08/28/2024 3:11 PM Neck CTA 08/28/24 12:47 CT angio head wo/w, CT angio neck with con CLINICAL HISTORY: dizzy TECHNIQUE: Contiguous axial CT images of the head were acquired from the base of the skull to the vertex without intravenous contrast administration. CT angiography of the head and neck was performed following intravenous administration of iodinated contrast. Coronal and sagittal MIPS were obtained from the axial data set and were submitted for review. Automated dose lowering techniques and/or adjustment according to patient size were utilized for this examination. All measurements were calculated based on NASCET criteria. CT DOSE: 998.47 mGy.cm Comparison: None available at the time of this dictation. FINDINGS: CT head: There is no acute intracranial hemorrhage or evidence of acute territorial infarction. No shift of the midline structures, mass effect, or extra-axial abnormalities are shown. Lungs and soft tissues are unremarkable. CTA Neck: A 3 vessel aortic arch is shown. There is no significant atherosclerotic plaque in the aortic arch or the origins of the innominate, left common carotid, and left subclavian arteries. The common carotid, external carotid, cervical segments of the internal carotid arteries, and the cervical segments of the vertebral arteries are patent without hemodynamically significant stenosis. The left vertebral artery is dominant. A right internal carotid stent is seen. CTA Head: The anterior and posterior cerebral circulations are patent. origin of the bilateral posterior cerebral arteries noted. IMPRESSION: 1. No acute intracranial hemorrhage, evidence of acute territorial infarction, or other acute intracranial disease process. 2. No occlusion, hemodynamically significant stenosis, or dissection in the major cervical arteries. 3. No occlusion, hemodynamically significant stenosis, aneurysm, dissection, or arteriovenous malformation in the major intracranial arteries. Assessment of stenosis of the internal carotid arteries is based on NASCET criteria. ACT 112: Negative or not required by law. Electronically signed by: Juan Manuel Torres M.D. 08/28/2024 3:11 PM ECG Additional Comments: ECG revealed sinus rhythm with occasional PVCs at 97 bpm; QTc 454 Code Status & VTE Plan Code Status Full code VTE Prophylaxis Plan VTE Prophylaxis will be ordered: Yes Supervising Physician Co-Signing Physician Notes Patient seen and examined, chart reviewed, case discussed with Cortez Blanco PA-C and I agree with the assessment and plan as above except as otherwise noted Labs and images reviewed Belkys is an 84-year-old female with a past medical history of chronic artery disease s/p right TCAR 08/04/2024 presents to the ER 08/28/2024 with blurry vision of 2 to 3 days headache and hypertension. Case was discussed with Dr. Ragsdale by the ER, nonspecific BP goals as long as systolic remains above 100 but as she is symptomatic with hypertension did recommend additional control as inpatient. Patient is with 2 to 3 days of visual changes and is not within the window for permissive hypertension. Vision is not back to normal but is improving currently as her blood pressure is improving. Currently 160/80s on recheck. Will treat to a goal of 180/100, labetalol on-call. MRI limited due to recent TCAR/stent, will repeat interval CT in 24 hours. DDx includes severe symptomatic hypertension. CTAhead and neck do not show any acute stenoses, dissection, or infarct. No hematoma is noted, right internal carotid stent is seen. On exam right neck access site is clean dry and well-healed without signs of hematoma or infection. Elbow flexion/extension, shoulder flexion/extension, continuous improvement engineer strength, hip flexion, knee extension, ankle dorsiflexion/plantarflexion 5/5 bilaterally and sensation of soft touch is intact in hands and feet without asymmetry. No facial asymmetry, eyebrow raise/cheek puff is intact and symmetrical, tongue protrudes midline. EOM is intact without deficit or nystagmus. No field cut, acuity is still decreased but improving. Blurry vision is bilateral. Does not improve on monocular gaze. Agree w/ above. Additional pt with chronic fatigue preceding her TCAR. TSH/B12/Folic pending. No anemia. PG Care Time/CCT Total # of Minutes Spent Total Time Spent with Patient: Total time spent is greater than 50% in coordination of care (as documented) at patient's floor/unit and/or counseling patient: C[place] [address] INT INP/OBS CARE 3/75MIN Patient Type Established Medical Decision Making High Complexity Diagnoses Hypertension I10 Blurry vision H53.8 Fatigue R53.83
[2024-08-28] MEDS ORDERED: LABETALOL HCL IV 5 MG/ML 20ML IV PRN (17:08)
--- OUTSIDE RECORDS SUMMARY | 2024-08-28 18:43 | External Medical Summary | Continuity of Care Document ---
Author Name Unknown Organization [facility] [address] [place] [id number] Address [address] [place] [address] [id number] Care Team Providers Care Organic Gardening Teacher Name Role Phone Kell Jorge Primary Care Physician [phone] [facility]counter [facility] [id number] Date(s): 08/03/24 - 08/03/24 [facility] [address] [place] [id number] [facility] Medicine [address] [place] [address] Encounter Diagnosis Arthritis of right glenohumeral joint(Discharge Diagnosis) - 08/03/24 Discharge Disposition: Home or Self Care Attending Physician: MD Horace, Joss Santana Allergies, Adverse Reactions, Alerts Substance Criticality Severity Reaction Reaction Severity Status enoxaparin Nausea and vomiting Active anastrozole Drug-induced na usea and vomiting Active Ipratropium [place] sore thr oat , nose bleeds Active Arimidex muscle spasms Active exemestane muscle spasms Activ e Immunizations Given and Recorded Vaccine Date Status Refusal Reason SARS-CoV-2 (COVID-19) mRNA-vacc - [id number] 06/11/23 Recorded influenza virus vaccine, inactivated 05/21/23 Give n influenza virus vaccine, inactivated 07/02/22 Give n influenza virus vaccine, inactivated 05/31/21 Give n SARS-CoV-2 (COVID-19) mRNA-1273 vaccine 08/02/21 R ecorded SARS-CoV-2 (COVID-19) mRNA-1273 vaccine 10/21/20 R ecorded SARS-CoV-2 (COVID-19) mRNA-1273 vaccine 09/23/20 R ecorded pneumococcal 23-valent vaccine 08/23/20 Given tetanus/diphtheria/pertuss, acel (Tdap) 08/28/16 R ecorded Medications aspirin 81 mg oral tablet, chewable Start: 07/15/24 10:58:00 AM EST, 1 tab, PO, Daily, Disp# 30 tab, Refills: 11, Pharmacy: [id number] Start Date: 07/15/24 Status: Ordered atorvastatin 80 mg oral tablet Start: 07/15/24 11:00:00 AM EST, 1 tab, PO, Daily, Disp# 30 tab, Refills: 11, Pharmacy: [id number] Start Date: 07/15/24 Status: Ordered CeleBREX 200 mg oral capsule Start: 06/01/24 9:25:00 AM EDT, 1 cap, PO, Daily, Disp# 30 cap, Refills: 3, contents of capsule may be mixed with soft foods such as applesauce, PRN: as needed for pain, Pharmacy: [id number] Start Date: 06/01/24 Status: Ordered Centrum Silver oral tablet Start: 08/28/16 2:31:00 PM EST, 1 tab, PO, Daily Start Date: 08/28/16 Status: Ordered levothyroxine 100 mcg (0.1 mg) oral tablet Start: 07/09/24 3:28:00 PM EST, 1 tab, PO, Daily, Disp# 90 tab, Refills: 0, Pharmacy: [id number] Start Date: 07/09/24 Status: Ordered losartan 100 mg oral tablet Start: 08/03/24 9:07:00 AM EST Start Date: 08/03/24 Status: Ordered olmesartan 20 mg oral tablet Start: 03/19/24 5:37:00 PM EDT, 1 tab, PO, Daily, Disp# 30 tab, Refills: 1, Pharmacy: [id number] Start Date: 03/19/24 Status: Ordered Plavix 75 mg oral tablet Start: 07/15/24 10:58:00 AM EST, 4 tab, PO, Daily, Disp# 30 tab, Refills: 11, Pharmacy: [id number] Start Date: 07/15/24 Status: Ordered pramipexole 1 mg oral tablet Start: 08/03/24 9:07:00 AM EST Start Date: 08/03/24 Status: Ordered Vitamin D3 2000 intl units oral capsule Start: 08/28/16 2:30:00 PM EST Start Date: 08/28/16 Status: Ordered Xyzal 5 mg oral tablet Start: 11/15/16 1:57:00 PM EDT, 1 tab, PO, Daily, PRN: allergy symptoms Start Date: 11/15/16 Status: Ordered Mental Status 08/03/24 Barriers to Learning one year None evide nt Mandatory Health Literacy Documentation Yes Health Literacy Communication Barriers N ever Primary Language Italian Problem List Condition Confirmation Course Effective Dates Status Health Status Informant Allergies Confirmed Active Arthritis of right glenohumeral joint Confirmed Active Lumbar facet arthropathy Confirmed Active Carotid stenosis, bilateral Confirmed Active Pseudogout Confirmed Active Chronic cholecystitis Confirmed Active Diarrhea Confirmed Active Chronic kidney disease (CKD), stage III (moderate) Confirmed Active Renal cyst Confirmed Active Dentures complicating chewing Confirmed Active AC joint arthropathy Confirmed Active Biceps tendinopathy Confirmed Active Diverticulosis Confirmed Active Enthesopathy of foot 1 Confirmed Active Family hx of colon cancer Confirmed Active Female stress incontinence Confirmed Active Right foot pain Confirmed Active Tendinopathy of right gluteus medius Confirmed Active Hearing loss Confirmed Active History of sleep apnea 2 Confirmed 04/29/10 Active Hx of breast cancer Confirmed Active Hx of thyroid cancer Confirmed Active History of palpitations Confirmed Active Status post replacement of right shoulder joint Confirmed Active Hyperlipidemia Confirmed Active Asthma Confirmed Active HTN (hypertension) Confirmed Active Hypocalcemia Confirmed Active Hypomagnesemia Confirmed Active Hypothyroidism Confirmed Active Rotator cuff tendinitis Confirmed Active Sacroiliitis Confirmed Active Abdominal wall strain Confirmed Active Irregular heart beats Confirmed Active Right lumbar radiculopathy Confirmed Active Spondylolisthesis of lumbar region Confirmed Active Osteopenia Confirmed Active Prolonged QT interval Confirmed Active Lumbar scoliosis Confirmed Active Sleep apnea Confirmed Active Spondylolisthesis, lumbosacral region Confirmed Active [...] Effective Dates Health Status Clinical Service Informant Arthritis of right glenohumeral joint Discharge Diagnosis 08/03/24 Procedures Procedure Date Related Diagnosis Body Site [...] ompleted Ultrasound scan of lower abd omen , 01/03/18 Completed Ultrasound--RLQ 22 11/29/17 Comple cristina [...] 02/11/2019 mammogram, 02/05/2018 mammogram, 02/04/2017 mammogram - [facility], and 02/16/2021 mammogram. BREAST COMPOSITION: There are [...] significant pauses or AV block noted. Normal [place], QRS, QT intervals at varying heart rates. Maximum R-R interval is 0.85 seconds. Isolated APDs and coulets noted. Isolated nonsustained episodes ofatrial tachycardia, up to 12 beats in duration. frequest VPDs and occasional couplets noted. No complet ventricular arrhythmia. 125215 38Bilateral C4-5 Facet joint injection 39left [id number] 42Right [id number] - right breast [id number] - [facility] Social History Social History Type Response Smoking Status Never smoked cigaret nhi Sex Female Sex Representation Female (finding) Ortho Outpt Note * Re Douglas: PERFORM, MODIFY Event Display: Ortho Outpt Note Authored Date: [id number] Name:NNAMDI YEPEZ Patient Number:[id number] :1940 Date of Service:08/03/2024 CHIEF COMPLAINT: Follow-up s/p right TSA; DOS: 11/27/2023 HPI: Ankur yearoldFemale, RHD,who presents today forfollow-up s/p the above noted procedure. She complains of pain worsethe past few days after she felt her shoulder pop while walking. She continues to work with PT on better muscle coupling. PHYSICAL EXAM: Focus on the right upper extremity: Sensation intact to the median, radial, ulnar, axillary, and subscapular nerve distributions. Shoulder ROM: Forward [id number]/ [id number] Incision clean and dry. No redness DIAGNOSTIC REVIEW: I obtained and personally interpreted3 views of the right shoulder taken today and stored in [facility]. There is 50% anteriortranslation on the axillary lateral Some superior migration on the AP. IMplant and glenoid component are well-fixed and well-aligned. IMPRESSION: 84 year old female8 monthss/p right TSA PLAN: Continue with rehabilitation focusing on strengthening and needs to couple deltoid better. Spoke with PT Follow-up in 2 months for clinical evaluation ATTESTATION: Re Zarco, scribing for and in the presence of, Joss Vu, on this date,08/03/2024 09:23:44. Electronic Signature on File Electronically Reviewed/Signed by: Re Douglas Author Signature Dt/Tm:08/03/2024 09:38 AM Electronically Reviewed/Signed by: Joss Vu MD Cosigner Signature Dt/Tm: 08/03/2024 11:47 AM Urban Anthropologist for Clinical Affairs, [facility] Caio Professor in Orthopaedics Rubber Flap Cutter, [facility] Medicine Patient Care team information Care Team Personnel Name: MD Lee Jonathan D Position: Physician - Family Med Member Role: Lifetime Relationship Address: [address] [place] [address] [place] Name: DO Urrutia Amanda Position: Resident Member Role: Lifetime Relationship Address: [address] [place] [address] [place] Name: MD Luisito, Kell Position: Physician - Family Med Member Role: Primary Care Provider Address: [address] [place] [address] [place] Name: Leandro Mccord MD, Stanislav Position: Resident Member Role: Lifetime Relationship Address: [facility] [address] Care Team Related Persons Name: EMIR YEPEZ Name: ISSA YEPEZ
--- OUTSIDE RECORDS SUMMARY | 2024-08-28 18:43 | External Medical Summary | Continuity of Care Document ---
Author Name Unknown Organization [facility] [address] Address [address] [place], [place] [id number] Care Team Providers Care Director Life Sales Name Role Phone Kell Jorge Primary Care Physician [phone] [id number] Date(s): 08/03/24 - 08/03/24 [facility] [address] [facility] [address] [facility] [address] [place], [place] [phone] Encounter Diagnosis Other specified abnormal findings of blood chemistry(Final) - Discharge Disposition: Home or Self Care Attending Physician: MD Jorge Dongsheng Referring Physician: MD Jorge Dongsheng Allergies, Adverse Reactions, Alerts Substance Criticality Severity Reaction Reaction Severity Status enoxaparin Nausea and vomiting Active anastrozole Drug-induced na usea and vomiting Active Arimidex muscle spasms Active exemestane muscle spasms Activ e Ipratropium [place] sore thr oat , nose bleeds Active Immunizations Given and Recorded Vaccine Date Status Refusal Reason SARS-CoV-2 (COVID-19) mRNA-vacc - [id number] 06/11/23 Recorded influenza virus vaccine, inactivated 05/21/23 [...] Daily, Disp# 30 tab, Refills: 11, Pharmacy: [id number] Start Date: 07/15/24 Status: Ordered atorvastatin 80 mg oral tablet Start: 07/15/24 11:00:00 AM EST, 1 tab, PO, Daily, Disp# 30 tab, Refills: 11, Pharmacy: [id number] Start Date: 07/15/24 Status: Ordered CeleBREX 200 mg oral capsule Start: 06/01/24 9:25:00 AM EDT, 1 cap, PO, Daily, Disp# 30 cap, Refills: 3, contents of capsule may be mixed with soft foods such as applesauce, PRN: as needed for pain, Pharmacy: [id number] Start Date: 06/01/24 Status: Ordered Centrum Silver oral tablet Start: 08/28/16 2:31:00 PM EST, 1 tab, PO, Daily Start Date: 08/28/16 Status: Ordered levothyroxine 100 mcg (0.1 mg) oral tablet Start: 07/09/24 3:28:00 PM EST, 1 tab, PO, Daily, Disp# 90 tab, Refills: 0, Pharmacy: [id number] Start Date: 07/09/24 Status: Ordered losartan 100 mg oral tablet Start: 08/03/24 9:07:00 AM EST Start Date: 08/03/24 Status: Ordered olmesartan 20 mg oral tablet Start: 03/19/24 5:37:00 PM EDT, 1 tab, PO, Daily, Disp# 30 tab, Refills: 1, Pharmacy: [id number] Start Date: 03/19/24 Status: Ordered Plavix 75 mg oral tablet Start: 07/15/24 10:58:00 AM EST, 4 tab, PO, Daily, Disp# 30 tab, Refills: 11, Pharmacy: [id number] Start Date: 07/15/24 Status: Ordered pramipexole 1 mg oral tablet Start: 08/03/24 9:07:00 AM EST Start Date: 08/03/24 Status: Ordered Vitamin D3 2000 intl units oral capsule Start: 08/28/16 2:30:00 PM EST Start Date: 08/28/16 Status: Ordered Xyzal 5 mg oral tablet Start: 11/15/16 1:57:00 PM EDT, 1 tab, PO, Daily, PRN: allergy symptoms Start Date: 11/15/16 Status: Ordered Problem List Condition Confirmation Course Effective Dates [...] is now considered within the normal range. Procedures Procedure Date Related Diagnosis Body Site [...] 02/11/2019 mammogram, 02/05/2018 mammogram, 02/04/2017 mammogram - [facility], and 02/16/2021 mammogram. BREAST COMPOSITION: There are [...] 2. Osteopenia and spondylotic change as above. 25Ileum normal. Repeat 5 years. 26Numerous diverticula in the sigmoid & descending colon and a few transverse nohemy diverticula are present, without evidence of diverticulitis which makes it very, very difficult to safely advancethe scope around that area. If she does need a colonoscopy in the future I would certainly try to start with the barium enema first. 27Normal study post cholecystectomy 28No significant abnormality identified within the right upper quadrant. 29no evidence of malignancy. post lumpectomy changes in the RIGHT are noted. There is associated architectural distortion and surgical scarring. No other areas of architectural distortion which are suspicious in appearance. 30There is no mammographic evidence of malignancy. A one year screening is recommended. 31Femoral neck is osteopenic. AP spine & total hip is normal. repeat 2-5 year depending on initiation of therapy & compliance. 32AP spine is normal. Z-score of 0.5., considered WNL for age. 33nomral classification in the femoral neck, total hip and lumbar spine. 34Ejection fraction = 60-65%. No regional wall [...] significant pauses or AV block noted. Normal NC, QRS, QT intervals at varying heart rates. Maximum R-R interval is 0.85 seconds. Isolated APDs and coulets noted. Isolated nonsustained episodes ofatrial tachycardia, up to 12 beats in duration. frequest VPDs and occasional couplets noted. No complet ventricular arrhythmia. [id number] 38Bilateral C4-5 Facet joint injection 39left [id number] 42Right [id number] - right breast [id number] - [facility] Results Laboratory List Name Date Hepatic Function Panel (HEPATIC FUNCT PA OBI) 08/03/24 Most recent to oldest [Reference Range]: 1 Alb [3.5-5.0 g/dL] 4.1 g/dL (08/03/24 11:37 AM) Alk Phos [38-126 unit/L] 108 unit/L (08/03/24 11:37 AM) ALT [<35 unit/L] 27 unit/L (08/03/24 11:37 AM) AST [15-46 unit/L] 49 unit/L *HI* (08/03/24 11:37 AM) D Bili [0.0-0.6 mg/dL] 0.1 mg/dL (08/03/24 11:37 AM) T Bili [0.2-1.3 mg/dL] 0.4 mg/dL (08/03/24 11:37 AM) Prot [6.3-8.2 g/dL] 7.2 g/dL 1 (08/03/24 11:37 AM) 1Result Comment: Testing Performed By: [facility] Larissa [place], [address] [place] [address] [place], [place] [address] Social History Social History Type Response Smoking Status Never smoked cigaret nhi Sex Female Sex Representation Female (finding) Patient Care team information Care Team Personnel Name: MD Jesus, Kevin Day Position: Physician - Family Med Member Role: Lifetime Relationship Address: [address] [place] [address] [place] Name: DO Urrutia Amanda Position: Resident Member Role: Lifetime Relationship Address: [address] [place] [address] [place] Name: MD Luisito, Kell Position: Physician - Family Med Member Role: Primary Care Provider Address: [address] [place] [address] [place] Name: Leandro Mccord MD, [facility] Position: Resident Member Role: Lifetime Relationship Address: [address] [place] [address] [place] Care Team Related Persons Name: EMIR YEPEZ Name: ISSA YEPEZ
--- OUTSIDE RECORDS SUMMARY | 2024-08-28 18:43 | External Medical Summary | Continuity of Care Document ---
Author Name Unknown Organization [facility] [address] [place] [address] [address] Address [address] [place] [phone] Care Team Providers Care Broomcorn Press Feeder Name Role Phone Kell Jorge Primary Care Physician [phone] [id number] Date(s): 08/03/24 - 08/03/24 [facility] [address] [place] [address] [facility] Medicine [address] [place] [address] Encounter Diagnosis Arthritis of right glenohumeral joint(Discharge Diagnosis) - 08/03/24 Discharge Disposition: Home or Self Care Attending Physician: MD Horace, Joss Santana Allergies, Adverse Reactions, Alerts Substance Criticality Severity Reaction Reaction Severity Status enoxaparin Nausea and vomiting Active anastrozole Drug-induced na usea and vomiting Active Ipratropium [place] sore thr oat , nose bleeds Active Arimidex muscle spasms Active exemestane muscle spasms Activ e Immunizations Given and Recorded Vaccine Date Status Refusal Reason SARS-CoV-2 (COVID-19) mRNA-vacc - [id number] 06/11/23 Recorded influenza virus vaccine, inactivated 05/21/23 [...] Daily, Disp# 30 tab, Refills: 11, Pharmacy: [id number] Start Date: 07/15/24 Status: Ordered atorvastatin 80 mg oral tablet Start: 07/15/24 11:00:00 AM EST, 1 tab, PO, Daily, Disp# 30 tab, Refills: 11, Pharmacy: [id number] Start Date: 07/15/24 Status: Ordered CeleBREX 200 mg oral capsule Start: 06/01/24 9:25:00 AM EDT, 1 cap, PO, Daily, Disp# 30 cap, Refills: 3, contents of capsule may be mixed with soft foods such as applesauce, PRN: as needed for pain, Pharmacy: [id number] Start Date: 06/01/24 Status: Ordered Centrum Silver oral tablet Start: 08/28/16 2:31:00 PM EST, 1 tab, PO, Daily Start Date: 08/28/16 Status: Ordered levothyroxine 100 mcg (0.1 mg) oral tablet Start: 07/09/24 3:28:00 PM EST, 1 tab, PO, Daily, Disp# 90 tab, Refills: 0, Pharmacy: [id number] Start Date: 07/09/24 Status: Ordered losartan 100 mg oral tablet Start: 08/03/24 9:07:00 AM EST Start Date: 08/03/24 Status: Ordered olmesartan 20 mg oral tablet Start: 03/19/24 5:37:00 PM EDT, 1 tab, PO, Daily, Disp# 30 tab, Refills: 1, Pharmacy: [id number] Start Date: 03/19/24 Status: Ordered Plavix 75 mg oral tablet Start: 07/15/24 10:58:00 AM EST, 4 tab, PO, Daily, Disp# 30 tab, Refills: 11, Pharmacy: [id number] Start Date: [...] Literacy Communication Barriers N ever Primary Language Gabonese Problem List Condition Confirmation Course Effective Dates [...] 02/11/2019 mammogram, 02/05/2018 mammogram, 02/04/2017 mammogram - [facility], and 02/16/2021 mammogram. BREAST COMPOSITION: There are [...] significant pauses or AV block noted. Normal [place], QRS, QT intervals at varying heart rates. Maximum R-R interval is 0.85 seconds. Isolated APDs and coulets noted. Isolated nonsustained episodes ofatrial tachycardia, up to 12 beats in duration. frequest VPDs and occasional couplets noted. No complet ventricular arrhythmia. [id number] 38Bilateral C4-5 Facet joint injection 39left [id number] 42Right [id number] - right breast [id number] - [facility] Social History Social History Type Response Smoking Status Never smoked cigaret nhi Sex Female Sex Representation Female (finding) Ortho Outpt Note * Re Douglas: PERFORM, MODIFY Event Display: Ortho Outpt Note Authored Date: [id number] Name:NNAMDI YEPEZ Patient Number:[id number] :1940 Date of Service:08/03/2024 CHIEF COMPLAINT: Follow-up [...] and subscapular nerve distributions. Shoulder ROM: Forward [id number]/ [id number] Incision clean and dry. No redness DIAGNOSTIC REVIEW: I obtained and personally interpreted3 views of the right shoulder taken today and stored in [facility]. There is 50% anteriortranslation on the axillary [...] MD Cosigner Signature Dt/Tm: 08/03/2024 11:47 AM Boilermaker Pipe Fitter for Clinical Affairs, [facility] Caio Professor in Orthopaedics Sales Management Intern, [facility] Patient Care team information Care Team Personnel Name: MD Lee Jonathan D Position: Physician - Family Med Member Role: Lifetime Relationship Address: [address] [place] [address] [place] Name: DO Urrutia Amanda Position: Resident Member Role: Lifetime Relationship Address: [address] [place] [address] [place] Name: MD Luisito, Kell Position: Physician - Family Med Member Role: Primary Care Provider Address: [address] [place] [address] [place] Name: Leandro Mccord MD, Stanislav Position: Resident Member Role: Lifetime Relationship Address: [facility] [address] Care Team Related Persons Name: EMIR YEPEZ Name: ISSA YEPEZ
--- OUTSIDE RECORDS SUMMARY | 2024-08-28 18:43 | External Medical Summary | Continuity of Care Document ---
Author Name Unknown Organization [facility] [address] Address [address] [place], [place] [id number] Care Team Providers Care Supply Person Name Role Phone Kell Jorge Primary Care Physician [phone] [id number] Date(s): 08/03/24 - 08/03/24 [facility] [address] [facility] [address] [facility] [facility] [place], [place] [phone] Encounter Diagnosis Other specified abnormal findings of blood chemistry(Final) - Discharge Disposition: Home or Self Care Attending Physician: MD Jorge Dongsheng Referring Physician: MD Jorge Dongsheng Allergies, Adverse Reactions, Alerts Substance Criticality Severity Reaction Reaction Severity Status enoxaparin Nausea and vomiting Active anastrozole Drug-induced na usea and vomiting Active Arimidex muscle spasms Active Ipratropium [place] sore thr oat , nose bleeds Active exemestane muscle spasms Activ e Immunizations Given and Recorded Vaccine Date Status Refusal Reason SARS-CoV-2 (COVID-19) mRNA-vacc - [id number] 06/11/23 Recorded influenza virus vaccine, inactivated 05/21/23 [...] Daily, Disp# 30 tab, Refills: 11, Pharmacy: [id number] Start Date: 07/15/24 Status: Ordered atorvastatin 80 mg oral tablet Start: 07/15/24 11:00:00 AM EST, 1 tab, PO, Daily, Disp# 30 tab, Refills: 11, Pharmacy: [id number] Start Date: 07/15/24 Status: Ordered CeleBREX 200 mg oral capsule Start: 06/01/24 9:25:00 AM EDT, 1 cap, PO, Daily, Disp# 30 cap, Refills: 3, contents of capsule may be mixed with soft foods such as applesauce, PRN: as needed for pain, Pharmacy: [id number] Start Date: 06/01/24 Status: Ordered Centrum Silver oral tablet Start: 08/28/16 2:31:00 PM EST, 1 tab, PO, Daily Start Date: 08/28/16 Status: Ordered levothyroxine 100 mcg (0.1 mg) oral tablet Start: 07/09/24 3:28:00 PM EST, 1 tab, PO, Daily, Disp# 90 tab, Refills: 0, Pharmacy: [id number] Start Date: 07/09/24 Status: Ordered losartan 100 mg oral tablet Start: 08/03/24 9:07:00 AM EST Start Date: 08/03/24 Status: Ordered olmesartan 20 mg oral tablet Start: 03/19/24 5:37:00 PM EDT, 1 tab, PO, Daily, Disp# 30 tab, Refills: 1, Pharmacy: [id number] Start Date: 03/19/24 Status: Ordered Plavix 75 mg oral tablet Start: 07/15/24 10:58:00 AM EST, 4 tab, PO, Daily, Disp# 30 tab, Refills: 11, Pharmacy: [id number] Start Date: 07/15/24 Status: [...] 02/11/2019 mammogram, 02/05/2018 mammogram, 02/04/2017 mammogram - [facility], and 02/16/2021 mammogram. BREAST COMPOSITION: There are [...] significant pauses or AV block noted. Normal [place], QRS, QT intervals at varying heart rates. Maximum R-R interval is 0.85 seconds. Isolated APDs and coulets noted. Isolated nonsustained episodes ofatrial tachycardia, up to 12 beats in duration. frequest VPDs and occasional couplets noted. No complet ventricular arrhythmia. [id number] 38Bilateral C4-5 Facet joint injection 39left [id number] 42Right [id number] - right breast [id number] - [facility] Results Laboratory List Name Date Hepatic [...] Comment: Testing Performed By: [facility] [address], [address] [place] [address] [place], [place] [address] Social History Social History Type Response Smoking Status Never smoked cigaret nhi Sex Female Sex Representation Female (finding) Patient Care team information Care Team Personnel Name: MD Jesus, Kevin Day Position: Physician - Family Med Member Role: Lifetime Relationship Address: [address] [place] [address] [place] Name: DO Urrutia Amanda Position: Resident Member Role: Lifetime Relationship Address: [address] [place] [address] [place] Name: MD Luisito, Kell Position: Physician - Family Med Member Role: Primary Care Provider Address: [address] [place] [address] [place] Name: Leandro Mccord MD, [facility] Position: Resident Member Role: Lifetime Relationship Address: [address] [place] [address] [place] Care Team Related Persons Name: EMIR YEPEZ Name: ISSA YEPEZ
--- OUTSIDE RECORDS SUMMARY | 2024-08-28 18:43 | External Medical Summary | Continuity of Care Document ---
Author Name Unknown Organization [place] [address] [address] [place] [id number] Care Team Providers Care Instrument Engineer Name Role Phone Kell Jorge Primary Care Physician [phone] [id number] Date(s): 08/11/24 - 08/11/24 [facility] [address] [facility] 1850 [facility], [address] [address] [phone] Encounter Diagnosis Body mass index [BMI] 28.0-28.9, adult(Discharge Diagnosis) - 08/11/24 Carotid stenosis, bilateral(Discharge Diagnosis) - 08/11/24 HTN (hypertension)(Discharge Diagnosis) - 08/11/24 Transaminitis(Discharge Diagnosis) - 08/11/24 Discharge Disposition: Home or Self Care Attending Physician: MD Jorge Dongsheng Allergies, Adverse Reactions, Alerts Substance Criticality Severity Reaction Reaction Severity Status enoxaparin Nausea and vomiting Active anastrozole Drug-induced na usea and vomiting Active Ipratropium [place] sore thr oat , nose bleeds Active Arimidex muscle spasms Active exemestane muscle spasms Activ e Assessment and Plan Extracted from: Title:Office Visit Note Author:DO Santana Clair e S Date:08/11/24 1.Carotid stenosis, bilate ral Chronic condition, at goal Goal: Stability Data: unique tests reviewed: _D/c summary, vascular progress notes Plan: S/p right TCAR. F/u vascular surgery 08/28. Continue asp/statin/Plavix. 2.HTN (hypertension) Chronic condition, at goal Goal: Blood pressure less than 140/90 Data: _ Plan: Ambulatory blood pressure at goal. Continue to hold olmesartan- continue to check ambulatory blood pressures if elevated restart olmesartan. F/u 1 month. 3.Transaminitis Chronic condition not at goal/exacerbated/progressive/side effects of treatment Goal: Resolution Data: _ Plan: Stable. Repeat 1 month. Consider US liver/hepatitis testing if still elevated. Immunizations Given and Recorded Vaccine Date Status Refusal Reason SARS-CoV-2 (COVID-19) mRNA-vacc - [id number] 06/11/23 Recorded influenza virus vaccine, inactivated 05/21/23 [...] Daily, Disp# 30 tab, Refills: 11, Pharmacy: [id number] Start Date: 07/15/24 Status: Ordered atorvastatin 80 mg oral tablet Start: 07/15/24 11:00:00 AM EST, 1 tab, PO, Daily, Disp# 30 tab, Refills: 11, Pharmacy: [id number] Start Date: 07/15/24 Status: Ordered Centrum Silver oral tablet Start: 08/28/16 2:31:00 PM EST, 1 tab, PO, Daily Start Date: 08/28/16 Status: Ordered levothyroxine 100 mcg (0.1 mg) oral tablet Start: 07/09/24 3:28:00 PM EST, 1 tab, PO, Daily, Disp# 90 tab, Refills: 0, Pharmacy: [id number] Start Date: 07/09/24 Status: Ordered Plavix 75 mg oral tablet Start: 07/15/24 10:58:00 AM EST, 4 tab, PO, Daily, Disp# 30 tab, Refills: 11, Pharmacy: [id number] Start Date: 07/15/24 Status: Ordered pramipexole 1 mg oral tablet Start: 08/03/24 9:07:00 AM EST Start Date: 08/03/24 Status: Ordered Vitamin D3 2000 intl units oral capsule Start: 08/28/16 2:30:00 PM EST Start Date: 08/28/16 Status: Ordered Xyzal 5 mg oral tablet Start: 11/15/16 1:57:00 PM EDT, 1 tab, PO, Daily, PRN: allergy symptoms Start Date: 11/15/16 Status: Ordered Mental Status 08/11/24 Barriers to Learning one year None evide nt Mandatory Health Literacy Documentation Yes Health Literacy Communication Barriers N ever Primary Language Serbian Problem List Condition Confirmation Course Effective Dates [...] Confirmed Active Female stress incontinence Confirmed Active Tendinopathy of right gluteus medius [...] Clinical Service Informant Body mass index [BMI] 28.0-28.9, adult Discharge Diagnosis 08/11/24 Non-Specified HTN (hypertension) Discharge Diagnosis 08/11/24 Non-Specified Transaminitis Discharge Diagnosis 08/11/24 Non-Specified Carotid stenosis, bilateral Discharge Diagnosis 08/11/24 Non-Specified Procedures Procedure Date Related Diagnosis Body Site [...] 02/11/2019 mammogram, 02/05/2018 mammogram, 02/04/2017 mammogram - [facility], and 02/16/2021 mammogram. BREAST COMPOSITION: There [...] significant pauses or AV block noted. Normal [place], QRS, QT intervals at varying heart rates. Maximum R-R interval is 0.85 seconds. Isolated APDs and coulets noted. Isolated nonsustained episodes ofatrial tachycardia, up to 12 beats in duration. frequest VPDs and occasional couplets noted. No complet ventricular arrhythmia. [id number] 38Bilateral C4-5 Facet joint injection 39left [id number] 42Right [id number] - right breast [id number] - [facility] Vital Signs Most recent to oldest [Reference Range]: 1 Height 157.7 cm (08/11/24 9:15 AM) Patient Weight 70.6 kg (08/11/24 9:15 AM) Body Mass Index 28.39 kg/m2 (08/11/24 9:15 AM) Temperature [36.5-37.9 DegC] 36.7 DegC (08/11/24 9:15 AM) Heart Rate 76 bpm (08/11/24 9:15 AM) Respiratory Rate 18 br/min (08/11/24 9:15 AM) Blood Pressure 154/90mmHg (08/11/24 9:15 AM) Cuff Pulse Pressure 64 mmHg (08/11/24 9:15 AM) Social History Social History Type Response Smoking Status Never smoked cigaret nhi Sex Female Sex Representation Female (finding) FCM Outpt Note * MD Luisito, Kell: MODIFY MD Jorge Dongsheng: MODIFY Event Display: FCM Outpt Note Authored Date: [id number] Chief Complaint Hospital f/u History of Present Illness 84 year old female presenting for f/u s/p right TCAR. - Right TCAR 08/04 - transienthypotension requiringphenylephrine drippost op - was startedonmidodrine 2.5mg TID-> stopped she has hypertensive with BPs 140s/90s - olmesartan currently being held - blood pressure in office 154/90-> asymptomatic; denies chest pain, dyspnea, headache, blurred vision - home blood pressures 130s/80s today; yesterday 110s/80s - f/u with vascular surgery 08/28/23 Transaminitis - AST= 49 Review of Systems As per above Physical Exam Vitals & Measurements T:36.7C HR:76(Monitored) RR:18 BP:154/90 SpO2:98% HT:157.7cm WT:70.6kg WT:70.600kg(Dosing) BMI:28.39 PHQ2 Data(Data Documented on:08/11/2024 09:15) Emotional health assessment NEGATIVE General:Well-developed, well-nourished patient, in no acute distress, pleasant and normal affect, intact memory. Eyes:No scleral injection or discharge. Lungs:Clear to auscultation bilaterally with good effort. Cardiac:Regular rate and rhythm.No murmurs.No extremity edema. Neurologic:Grossly intact cranial nerves Assessment/Plan 1.Carotid stenosis, bilateral Chronic condition, at goal Goal: Stability Data:unique tests reviewed: _D/c summary, vascular progress notes Plan: S/p right TCAR. F/u vascular surgery 08/28. Continue asp/statin/Plavix. 2.HTN (hypertension) Chronic condition, at goal Goal: Blood pressure less than 140/90 Data:_ Plan: Ambulatory blood pressure at goal. Continue to hold olmesartan- continue to check ambulatory blood pressures if elevated restart olmesartan. F/u 1 month. 3.Transaminitis Chronic condition not at goal/exacerbated/progressive/side effects of treatment Goal: Resolution Data:_ Plan: Stable. Repeat 1 month. Consider US liver/hepatitis testing if still elevated. Attestation Preceptor note:I reviewed and discussed the history and physical exam findings with the resident physician and agree with the above impression and plan. Kell Jorge MD Problem List/Past Medical History Ongoing Abdominal wall strain AC joint arthropathy Allergies Arthritis of right glenohumeral joint Asthma Biceps tendinopathy Carotid stenosis, bilateral Chronic cholecystitis Chronic kidney disease (CKD), stage III (moderate) Dentures complicating chewing Diarrhea Diverticulosis Enthesopathy of foot Family hx of colon cancer Female stress incontinence Hearing loss Hip flexor tendonitis History of palpitations History of sleep apnea HTN (hypertension) Hx of breast cancer Hx of thyroid cancer Hyperlipidemia Hypocalcemia Hypomagnesemia Hypothyroidism Irregular heart beats Lumbar facet arthropathy Lumbar scoliosis Osteopenia Prolonged QT interval Pseudogout PVC (premature ventricular contraction) Renal cyst Restless leg syndrome Right lumbar radiculopathy Rotator cuff tendinitis Sacroiliitis Sleep apnea Spondylolisthesis of lumbar region Spondylolisthesis, lumbosacral region 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 Vitamin D deficiency Resolved Breast cancer Procedure/Surgical History Mammogram| Service Date: 3Chest x-ray| Service Date: 3Pathology report| Service Date: 3Arthroscopy of shoulder| Service Date: 09/04/2022Ultrasound of the mesenteric vasculature| Service Date: 05/16/2022Mammogram - localization| Service Date: 01/31/2022 Diagnostic colonoscopy| Service Date: 01/16/2022KUB X-ray| Service Date: 11/08/2021mall bowel series--follow through| Service Date: 10/25/2021T angiogram of thorax, abdomen and pelvis withcontrast| Service Date: 10/19/2021T of abdomen and pelvis without contrast| Service Date: lain X-ray of right humerus| Service Date: 03/01/2021one density scan| Service Date: 11/01/2020hest x-ray| Service Date: 06/15/2020Eye examination| Service Date: [...] sinus surgeryLumpectomyTonsillectomyKnee arthroplastyKnee arthroplastyHysterectomyThyroidectomyAPPENDECTOMYInjection into joint Medications aspirin(aspirin 81 mg oral tablet, chewable), 81 mg= 1 tab, PO, Daily, 11 refills atorvastatin(atorvastatin 80 mg oral tablet), 80 mg= 1 tab, PO, Daily, 11 refills cholecalciferol(Vitamin D3 2000 intl units oral capsule) clopidogrel(Plavix 75 mg oral tablet), 300 mg= 4 tab, PO, Daily, 11 refills levocetirizine(Xyzal 5 mg oral tablet), 5 mg= 1 tab, PO, Daily, PRN levothyroxine(levothyroxine 100 mcg (0.1 mg) oral tablet), 1 tab, PO, Daily multivitamin with minerals(Centrum Silver oral tablet), 1 tab, PO, Daily pramipexole(pramipexole 1 mg oral tablet) Allergies Arimidexmuscle spasms Ipratropium Bromidesore throat , [...] Status Family Member(s) Immunizations Vaccine Date Status SARS-CoV-2 (COVID-19) mRNA-vacc - [id number] 06/11/2023 Recorded influenza virus vaccine, inactivated 05/21/2023 Given influenza virus vaccine, inactivated 07/02/2022 Given SARS-CoV-2 (COVID-19) mRNA-1273 vaccine 08/02/2021 Recorded influenza virus vaccine, inactivated 05/31/2021 Given SARS-CoV-2 (COVID-19) mRNA-1273 vaccine 10/21/2020 Recorded SARS-CoV-2 (COVID-19) mRNA-1273 vaccine 09/23/2020 Recorded pneumococcal 23-valent vaccine 08/23/2020 Given tetanus/diphtheria/pertuss, acel (Tdap) 08/28/2016 Recorded Recommendations Health Maintenance Pending(in the next year) OverDue Medicare Annual Wellness Visit due08/23/21and every 1year Adult Influenza Vaccine due02/23/24and every 1year Due Adult COVID-19 Vaccination due08/11/24Unknown Frequency Adult Social Determinants of Health Screening due08/11/24Unknown Frequency Shingles Vaccine due08/11/24One-time only Satisfied(in the past 1 year) Satisfied Body Mass Index on08/11/24.Satisfied by ZAHIDA Mcdonough [place] Electronic Signature on File Electronically Reviewed/Signed by: Alma Santana DO Author Signature Dt/Tm:08/11/2024 09:54 AM Resident Department of Family Medicine Electronically Reviewed/Signed by: Kell Jorge MD Cosigner Signature Dt/Tm: 08/11/2024 11:28 AM Department of Family Medicine CSN Patient Care team information Care Team Personnel Name: MD Jesus, Kevni Day Position: Physician - Family Med Member Role: Lifetime Relationship Address: [address] [place] [address] [place] Name: DO Urrutia Amanda Position: Resident Member Role: Lifetime Relationship Address: [address] [place] [address] [place] Name: MD Jorge Dongsheng Position: Physician - Family Med Member Role: Primary Care Provider Address: [address] [place] [address] [place] Name: Leandro Mccord MD, [facility] Position: Resident Member Role: Lifetime Relationship Address: [address] [place] [address] [place] Care Team Related Persons Name: EMIR YEPEZ Name: ISSA YEPEZ
[2024-08-28 18:48] LABS: Thyroid Stimulating Hormone 7.119 uIu/ml (0.300-4.500)
[2024-08-28 19:23] LABS: T4 Free Thyroxine 0.96 ng/dl (0.61-1.60)
[2024-08-28] MEDS: MIDODRINE HCL 2.5 MG TAB PO STA (19:32)
[2024-08-28] MEDS ORDERED: ONDANSETRON INJ 2 MG/ML 2 ML VIAL IV PRN (21:05)
[2024-08-28] MEDS ORDERED: ACETAMINOPHEN 325 MG TAB PO PRN (21:05)
[2024-08-28] MEDS ORDERED: CETIRIZINE HCL 10 MG TABLET PO PRN (21:20)
[2024-08-29] MEDS: PRAMIPEXOLE DIHYDROCHLO 0.5 MG TAB PO SCH (00:43)
[2024-08-29 02:54] VITALS: TEMP 97.5
[2024-08-29 04:43] LABS: Basophils # (auto) 0.04 K/uL (0.00-0.20); Basophils % (auto) 0.6 %; Eosinophils # (auto) 0.36 K/uL (0.00-0.50); Eosinophils % (auto) 5.2 %; Hematocrit (blood only) 35.6 % (37.0-47.0); Immature Granulocytes # (auto) 0.02 K/uL (0.01-0.20); Immature Granulocytes % (auto) 0.3 %; Lymphocytes # (auto) 0.98 K/uL (1.20-3.40); Lymphocytes % (auto) 14.1 %; Mean Corpuscular Hemoglobin 28.8 pg (25.0-34.0); Mean Corpuscular Hgb Conc 33.7 g/dL (32.0-36.0); Mean Corpuscular Volume 85.6 fL (80.0-100.0); Mean Platelet Volume 9.1 fL (9.4-12.4); Monocytes # (auto) 0.44 K/uL (0.11-0.59); Monocytes % (auto) 6.3 %; Neutrophils % (auto) 73.5 %; Platelet Count 269 K/uL (130-400); RDW Coefficient of Variation 15.4 % (11.5-14.5); RDW Standard Deviation 47.7 fL (36.4-46.3); Red Blood Count 4.16 M/uL (4.20-5.40); White Blood Count 6.94 K/ul (4.8-10.8)
[2024-08-29 04:59] LABS: BUN Creatinine Ratio 17.1 (10-20); Calcium 9.1 mg/dl (8.6-10.3); Chol HDL Ratio 2.5 (0-5); Creatinine Clr Calc Pharmacy 46.8 ml/min; Potassium 3.5 mmol/L (3.5-5.1)
[2024-08-29] MEDS: LEVOTHYROXINE SODIUM 100 MCG TABLET PO SCH (07:13)
[2024-08-29] MEDS: MIDODRINE HCL 2.5 MG TAB PO SCH (07:13)
[2024-08-29 08:27] LABS: Estimated Average Glucose 105 mg/dl; Hemoglobin A1C 5.3 % (4.5-5.6)
[2024-08-29] MEDS: CLOPIDOGREL BISULFATE 75 MG TAB PO SCH (09:16)
[2024-08-29] MEDS: ASPIRIN 81 MG ECTAB PO SCH (09:16)
[2024-08-29] MEDS: ATORVASTATIN 40 MG TAB PO SCH (09:17)
--- NOTE | 2024-08-29 09:29 | CT Scan Report ---
CT OF THE HEAD WITHOUT CONTRAST CLINICAL HISTORY: Stroke r/o; unable to obtain MRI; 24h reassessment COMPARISON STUDY: Head CT and CTA of the head August 28, 2024. CT DOSE: 547.75 mGy.cm TECHNIQUE: Helical axial images of the head were obtained without IV contrast. Automated exposure con trol was utilized for the study. A dose lowering technique was utilized adhering to the principles o f ALARA. FINDINGS: No acute intracranial hemorrhage, midline shift or mass effect is present. White matter hyp odensities are unchanged and favor small vessel disease. The ventricular system is unremarkable. The basal cisterns are patent. No extra-axial collections are present. There are no findings to suggest a cute dural sinus thrombosis or acute territorial infarct. Postoperative findings within the sinuses. There are no calvarial fractures. IMPRESSION: No acute intracranial findings. ACT 112: Negative or not required by law. Electronically signed by: Matti Springer M.D. 08/29/2024 9:27 AM
[2024-08-29 11:56] VITALS: RESP 20
--- NOTE | 2024-08-29 13:12 | XCELERA ---
[id number] \\[email or web address]-DEANA\[email or web address]_[email or web address]\[id number]
--- NOTE | 2024-08-29 13:29 | Magnetic Resonance Report ---
MRI OF THE BRAIN WITHOUT CONTRAST CLINICAL HISTORY: Vision deficits. COMPARISON STUDY: Head CT performed earlier today. Head CT and CTA of the head August 28, 2024. TECHNIQUE: Utilizing a 1.5 Solange magnet and dedicated coil, multiplanar, multiecho imaging of the bra in was performed without IV contrast. FINDINGS: There are no foci of restricted diffusion to suggest acute infarct. No acute intracranial h emorrhage, midline shift or mass effect is present. Ventricular system is unremarkable. The basal cis terns are patent. There are no extra-axial collections. Flow-voids for the major intracranial vessels are present. No intracranial masses are identified on unenhanced exam. Numerous small white matter T 2 hyperintense foci suggest small vessel disease. Trace fluid within the right mastoid air cells. No evidence for acute sinusitis. IMPRESSION: No acute intracranial findings. ACT 112: Negative or not required by law. Electronically signed by: Matti Springer M.D. 08/29/2024 1:27 PM
--- NOTE | 2024-08-29 13:55 | Discharge Summary ---
Discharge Summary Date of Service August 29, 2024 Principal Dx & Hospital Course #1 = Principal Diagnosis (1) Hypertension: Belkys was admitted for elevated blood pressure and blurry vision for 24 hours. She recently had a TCAR with vascular surgery and was recommended for stroke evaluation. Her vision improved and was 90% back to normal the next day. Interval CTs were both normal and did not show any abnormalities, CThead and CTA were unremarkable. 24-hour interval CT was initially pursued as she had a recent carotid stent. On discussion vascular surgery was okay 3 weeks out to pursue MRI, this was obtained and did not show any evidence of stroke. Patient's symptoms had improved. Very of her symptoms did appear to coincide with her blood pressure, and following improvement in blood pressure her symptoms also improved. She was discharged to continue aspirin and Plavix with follow-up to her outpatient PCP and vascular surgery. Blood pressure was tolerable 150s/90s at time of discharge, her midodrine was decreased by 50%., With instructions to check her blood pressure and increase this back if her blood pressure was below 110. To do as outpatient: 1. Routine PCP and vascular surgery follow-up 2. Increase Synthroid by 25 mcg, 125 mcg with repeat TSH in 6 weeks 3. Pt continued on continued her home dose of midodrine. Patient was instructed to check her blood pressure prior to taking this, and if greater than 150 to hold the dose and recheck her blood pressure after a few hours and only take the dose if her blood pressure is low/less than 110. (2) Blurry vision: (3) Fatigue: Admission HPI Per Admitting Provider Belkys is a pleasant 84-year-old female with PMH of carotid artery stenosis s/p TCAR, HTN, asthma, breast cancer, restless leg syndrome, chronic status, and restrictive lung disease. She presented on 08/28 at the behest of the vascular surgery clinic for hypertension. Patient recently underwent a TCAR procedure on 08/[address] Ragsdale. On a follow-up appointment today, she reports she had blurry vision over the past 24 hours, and was also experiencing high blood pressure. Blurry vision is in both eyes, however she reports that it has improved significantly since receiving labetalol in the ED. She is unsure when the blurry vision started, but it may have been yesterday or this morning. She denies neck stiffness. No prior history of strokes. She denies any strokelike symptoms such as slurred speech, facial droop, or unilateral deficits. She wears glasses at baseline and last saw her eye doctor 2 weeks ago; she reports that her prescription is currently up-to-date. She has not noticed any rashes on her body or tick bites. No sick contacts. No prior history of A-fib to her knowledge. Her at bedside does report that she has had increased fatigue over the past several months. She denies smoking, tobacco use, or recent alcohol use. ED course: Labetalol 10mg IV ROS: Patient endorses cold-intolerance, lightheadedness, generalized fatigue, blurry vision in both eyes, mild GEE, SULLIVAN, congestion, and dry cough. Patient denies fever, chills, night-sweats, dizziness, slurred speech, facial dr oop, unilateral deficits, tinnitus, chest pain, chest palpitations, SOB at rest, abdominal pain, N/V/D, changes in urinary/bowel habits, or numbness/tingling in the arms or legs. Discharge Plan Discharge Items Patient Disposition: Home - Self-Care Reason For Visit: STROKE R/O Discharge Diagnosis: ? TIA versus CVA Activity: Resume your previous activity Non-emergency contact: Primary Care Provider and Surgeon Call non-emergency contact if: you have any medication questions, your symptoms worsen and your pain is not controlled Follow-up/Referrals: Kell Jorge [Primary Care Provider] - Jamie Ragsdale MD [Physician] - Diet: Heart Healthy Addtl Attending Provider Instructions: You are seen in the hospital for vision changes. Your vision was 80% improved following admission. Your initial CAT scans were normal. Your MRI did not show evidence of a stroke. Please continue atorvastatin, aspirin, and Plavix. Follow-up is being scheduled for you with vascular surgery and your PCP. Your thyroid levels were slightly off during admission, your Synthroid dose has been changed to 125 mcg. Please take levothyroxine 125 mcg daily, and stop taking the 100 mcg dose. You have been continued on your midodrine 2.5 mg 3 times daily. This raises blood pressure. Please check your blood pressure periodically before using this medication. If your blood pressure is above 140, do not take this medication. If you have skipped a dose, and you recheck your blood pressure and is less than 110 then you may take the skipped dose. Please discuss this medication further at follow-up with your PCP and vascular surgeon If you develop any new or worsening symptoms including fever, chills, sweats, chest pain, chest pressure, difficulty breathing, uncontrolled nausea/vomiting, rash, wheezing, passing out or nearly passing out, bleeding, black/bloody bowel movements, or other new or concerning symptoms please call your primary care physician, or call 911 for re-evaluation in the emergency department if you are very concerned. Pending Studies at Discharge: No Stand-Alone Forms: My [facility] [employer], Smoking Cessation Medications and DC Order Prescriptions: New levothyroxine [Synthroid] 125 mcg Tablet 125 mcg PO DAILYBB 30 Days Qty: 30 3RF Continued cholecalciferol (vitamin D3) [Vitamin D3] 50 mcg (2,000 unit) capsule 2,000 unit PO QPM Centrum Silver Women 8 mg iron-400 mcg-300 mcg tablet 1 tab PO QPM vitamin B complex Capsule 1 cap PO UD Patient Comments: SAT AND SAT Rx Instructions: saturday and saturday pramipexole 1 mg tablet 1 mg PO HS Rx Instructions: TAKE 1 TABLET BY MOUTH AT BEDTIME levocetirizine 5 mg tablet 5 mg PO DAILY PRN (Reason: Allergy Symptoms) Rx Instructions: TAKE 1 TABLET BY MOUTH ONCE DAILY IF NEEDED for allergy relief olmesartan 20 mg tablet 20 mg PO HS celecoxib [Celebrex] 200 mg Capsule 200 mg PO DAILY PRN (Reason: Pain) atorvastatin [Lipitor] 80 mg Tablet 80 mg PO QAM clopidogrel [Plavix] 75 mg Tablet 75 mg PO QAM aspirin 81 mg Capsule 81 mg PO QAM oxycodone-acetaminophen [Percocet] 5-325 mg Tablet 1 tab PO Q4H PRN (Reason: pain) Qty: 7 0RF midodrine 2.5 mg Tablet 5 mg PO TID@0800,1200,1700 Qty: 24 0RF Discontinued levothyroxine [Synthroid] 100 mcg tablet 100 mcg PO QAM Patient Comments: TAKES IN AM Discharge Orders: Discharge Order (Routine); Ordered 08/29/24 Ordered By: Geovani Cramer Admission Data Admit Date/Time: 08/28/24 17:31 Attending Provider: Geovani Cramer Admit Provider: Geovani Cramer Primary Care Provider: Kell Jorge Other Providers: Geovani Cramer Hospital Stay Data Consultations 08/28/24 16:55 ED Decision to Admit Stat Diagnostic Imagining Performed 08/28/24 12:47 CT angio head wo/w Stat CT angio neck with con Stat 08/29/24 09:00 CT head/brain wo con Routine 08/29/24 11:26 MRI Brain [MR brain wo con] Urgent Pending Results Patient Have Any Pending Studies at Discharge: No Discharge Instructions Given to Patient (Per Discharging Provider) You are seen in the hospital for vision changes. Your vision was 80% improved following admission. Your initial CAT scans were normal. Your MRI did not show evidence of a stroke. Please continue atorvastatin, aspirin, and Plavix. Follow-up is being scheduled for you with vascular surgery and your PCP. Your thyroid levels were slightly off during admission, your Synthroid dose has been changed to 125 mcg. Please take levothyroxine 125 mcg daily, and stop taking the 100 mcg dose. You have been continued on your midodrine 2.5 mg 3 times daily. This raises blood pressure. Please check your blood pressure periodically before using this medication. If your blood pressure is above 140, do not take this medication. If you have skipped a dose, and you recheck your blood pressure and is less than 110 then you may take the skipped dose. Please discuss this medication further at follow-up with your PCP and vascular surgeon If you develop any new or worsening symptoms including fever, chills, sweats, chest pain, chest pressure, difficulty breathing, uncontrolled nausea/vomiting, rash, wheezing, passing out or nearly passing out, bleeding, black/bloody bowel movements, or other new or concerning symptoms please call your primary care physician, or call 911 for re-evaluation in the emergency department if you are very concerned. Total Time Total Time Spent Total Time Spent (In Minutes): Time spend day of discharge 60 minutes including direct patient care, documentation, review of labs and images, and coordination of care. Coding Level of Care Code 30905 INP/OBS DISCH >30 MIN Diagnoses Hypertension I10 Blurry vision H53.8 Fatigue R53.83
[2024-08-29 14:04] VITALS: BP 124/87; PULSE 87; O2SAT 95
[2024-08-29] MEDS ORDERED: LOSARTAN POTASSIUM 50 MG TAB PO SCH (21:00)
[2024-08-30] MEDS ORDERED: LEVOTHYROXINE SODIUM 125 MCG TABLET PO SCH (06:30)
== END 2024-08-29 14:02 | disposition home or self-care (01) ==
LOC: EDINP 12:24 → ED 12:24 → EDINP 21:06